=== PATIENT | male | born 1950 | race Caucasian/White ===

== ENCOUNTER → 2016-09-10 | Outpatient (CLI) | payer OTHER, MEDICARE ==
--- NOTE | 2016-09-11 19:38 | CPIP ---
[f rep st] INVASIVE CARDIAC PROCEDURE DATE OF PROCEDURE: 09/10/2016 Patient seen for arterial studies without exercise. He demonstrates an ankle-brachial index on the right of 0.6 and on the left 0.86. He has pulsatile flow in both legs down to the ankle level but b lood better on the left. On the right, he has diminished flow at the thigh level, suggesting a high SFA stenosis or even common femoral or iliac stenosis. It is relatively unchanged throughout the r est of the course with flat tracings at his digital and metatarsal levels on the right. IMPRESSION: A right sided vascular insufficiency at a higher level; possibly external iliac or comm on femoral. Would recommend CT angiography for further evaluation. /[id number]/MODL
== END ==
LOC: BHFA 13:00
PROVIDERS: ATTEND Surgery
DX: I70.209 Unspecified atherosclerosis of native arteries of extremities, unspecified extremity (principal)

== ENCOUNTER → 2016-11-21 | Outpatient (CLI) | payer OTHER, MEDICARE ==
[~2016-11-21] MED LIST: IOPAMIDOL (ISOVUE 370) 100 ML BTL IV ONE
[2016-11-21 11:58] LABS: CREATININE 0.8 mg/dL (0.7-1.3); GLOMERULAR FILTRATION RATE > 60
== END ==
LOC: FIMAGING 11:01
PROVIDERS: ATTEND Surgery
DX: I82.511 Chronic embolism and thrombosis of right femoral vein (principal); I82.512 Chronic embolism and thrombosis of left femoral vein; I77.1 Stricture of artery; I70.0 Atherosclerosis of aorta; Z95.828 Presence of other vascular implants and grafts
CPT/HCPCS: 75635; Q9967

== ENCOUNTER → 2016-12-31 | Outpatient (CLI) | payer OTHER, MEDICARE | LOC: BHFA 14:15 | PROVIDERS: ATTEND Internal Medicine Cardiovascular Disease | DX: Z01.810 Encounter for preprocedural cardiovascular examination (principal); I71.4 Abdominal aortic aneurysm, without rupture; I73.9 Peripheral vascular disease, unspecified; I25.10 Atherosclerotic heart disease of native coronary artery without angina pectoris; I10 Essential (primary) hypertension ==

== ENCOUNTER 2017-01-01 08:00 | Inpatient (IN) | payer OTHER, MEDICARE ==
--- NOTE | 2016-12-31 09:48 | GHP ---
[f rep st] PREOP HISTORY AND PHYSICAL DATE OF ADMISSION: 01/01/2017 Mr. Esteban is a 66-year-old male with a history of peripheral vascular disease. He had an aortobi femoral bypass approximately 10 years ago. He now presents complaining of progressively worsening, right worse than left claudication. Arterial studies revealed an WANDY of 0.6 on the right and 0.86 o n the left in September of 2016. CT angiogram with runoff in November of 2016 shows his aortobifemoral bypa ss graft with continued patency of the [place] infrarenal abdominal aortic aneurysm. He has chronica lly occluded iliac arteries. His bypass grafts to the common femoral arteries are patent; however, he does have an occluded long segment of his right SFA, with reconstitution to the mid to distal SFA and popliteal artery, with 2-vessel runoff to the ankle. On the left side, he has a short segment occlusion; with high-grade 80 to 90% segmental stenosis, high-grade focal popliteal artery stenosis, also with 2 vessel runoff to the ankle. He now presents for a right femoral-popliteal bypass surge ry. He may eventually need revascularization on the left side as well. The patient has been seen a nd examined by Dr. Amador, and all studies and images were personally reviewed by myself and Dr. Luis Angel sanchez. Risks and options have been fully discussed; including, but not limited to: Bleeding, infection , clotting, ischemia, need for further surgeries, limb loss, damage to surrounding structures, nerve injury, and other problems, and he requests to proceed. PAST MEDICAL HISTORY: Includes coronary artery disease with coronary stents, bronchitis, history of diverticulitis, L4-L5 disk bulging, sciatica, degenerative spondylolisthesis, metabolic syndrome, n europathy, prostate cancer, hypertension, hepatitis C. PAST SURGICAL HISTORY: Includes aortobifemoral bypass as described above. MEDICATIONS: Aspirin, Cialis, gabapentin, Lipitor, metformin, metoprolol, Niaspan, ramipril. ALLERGIES: No known drug allergies. 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 He is single and lives alone. He is a former tobac co smoker, and lost 25 pounds when he stopped drinking alcohol and smoking, and started eating more healthy. FAMILY HISTORY: Includes coronary artery disease. REVIEW OF SYSTEMS: Shortness of breath and leg pain. A 10-point review of systems negative aside f rom aforementioned, and that in the HPI. PHYSICAL EXAMINATION: GENERAL: Reveals a 66-year-old male, somewhat older-appearing than his state d age, alert and oriented x3, and in no acute distress. HEENT: Normocephalic atraumatic. Mucous m embranes moist. CHEST: Clear to auscultation bilaterally without wheezes. CARDIAC: Regular rate and rhythm without murmurs. ABDOMEN: Soft, nontender. No pulsatile masses. EXTREMITIES: Warm, d ry. Poor Doppler pulses. IMPRESSION: This is a 66-year-old male with a history of aortobifemoral bypass, which appears paten t, but now with claudication secondary to occlusion of his superficial femoral arteries, right worse than left. PLAN: Plan is to proceed with a right femoral-popliteal bypass graft. Again, risks and options hav e been fully discussed and he requests to proceed. We will also be obtaining cardiac clearance sylwia howard to his surgery. /[id number]/MODL
[2017-01-22] MEDS ORDERED: ceFAZolin 2 GM/DEXTROSE 100 ML IV ONE (06:17)
[2017-01-22] MEDS ORDERED: LIDOCAINE 1% 2 ML INJ ONE (06:35)
[2017-01-22] MEDS ORDERED: PROPOFOL 200 MG/20 ML VIAL ONE (06:52)
[2017-01-22] MEDS ORDERED: fentaNYL 100 MCG/2 ML INJ ONE ×2 (06:52→11:20)
[2017-01-22] MEDS ORDERED: LIDOCAINE 2% 5 ML SDV ONE (06:53)
[2017-01-22] MEDS ORDERED: ROCURONIUM 50 MG/5 ML VIAL ONE ×2 (06:53→08:45)
--- NOTE | 2017-01-22 06:56 | PDHPUP ---
History & Physical Update H&P update statement: This history and physical update is based on an assessment of the patient which was completed after admission or registration (within 24 hours), but prior to the surgery/procedure. Since last H&P patient's surgery was cancelled secondary to cardiac concerns. He is now s/p cardiac catheterization. No stents were placed. Plan per cardiology is for aggressive medical management. He has been cleared for surgery today. H&P update: H&P reviewed & patient examined
[2017-01-22] MEDS ORDERED: PROTAMINE SULFATE 50 MG/5 ML VIAL IVP ONE (06:58)
[2017-01-22] MEDS ORDERED: BUPIVACAINE 0.5% 30 ML SDV ONE (06:58)
[2017-01-22] MEDS ORDERED: THROMBIN (BOVINE) 20,000 UNIT SPRAY TP ONE (06:59)
[2017-01-22] MEDS ORDERED: HEPARIN 1000 UNIT/1 ML MDV ONE (07:00)
[2017-01-22] MEDS ORDERED: PAPAVERINE HCL 60 MG/2 ML SDV ONE (07:00)
[2017-01-22] MEDS ORDERED: IOTHALAMATE MEG (CONRAY) 50 ML VIAL IV ONE (07:00)
--- NOTE | 2017-01-22 07:25 | PDANEPAE ---
ANE History of Present Illness 66 year old male w/ PMHx CAD (with cardiac stents), PAD (prior aorta to bi- femoral bypass), HTN, HLD, chronic bronchitis (long-term smoker; quit 5 to 7 years ago), prostate cancer and DELBERT risk factors presents for right femoral to popliteal bypass. ANE Past Medical History - Cardiovascular History Hx Hypertension: Yes Hx Arrhythmias: No Hx Chest Pain: No Hx Coronary Artery / Peripheral Vascular Disease: Yes Hx CHF / Valvular Disease: No Hx Palpitations: No Cardiovascular History Comment: HYPERLIPIDEMIA. CARDIAC STENTS - Pulmonary History Hx COPD: No Hx Asthma/Reactive Airway Disease: No Hx Recent Upper Respiratory Infection: No Hx Oxygen in Use at Home: No Hx Sleep Apnea: No Sleep Apnea Screening Result - Last Documented: Negative Pulmonary History Comment: CHRONIC BRONCHITIS - Neurologic History Hx Cerebrovascular Accident: No Hx Seizures: No Hx Dementia: No - Endocrine History Hx Diabetes: Yes Hypothyroid: No Hyperthyroid: No Obesity: mild Endocrine History Comment: ELEVATED GLUCOSE - METFORMIN - Renal History Hx Renal Disorders: No - Liver History Hx Hepatic Disorders: No - Neurological & Psychiatric Hx Hx Neurological and Psychiatric Disorders: No - Cancer History Hx Cancer: No Cancer History Comment: PROSTATE CA - Congenital Disorder History Hx Congenital Disorders: No - GI History GERD: no Hx Gastrointestinal Disorders: No - Other Health History Other Health History: NEG - Chronic Pain History Chronic Pain: Yes (LEG RAMIN PAIN) - Surgical History Prior Surgeries: AORTA BYPASS 10 YRS AGO. ANGIOPLASTY W/STENTS. PROSTATE RADIOACTIVE IMPLANT. SKIN GRAFTS R LEG ANE Review of Systems - Exercise capacity Exercise capacity: <4 METS (Limited by claudication) METS (RN): 3 METS ANE Patient History - Allergies Allergies/Adverse Reactions: No Known Allergies Allergy (Verified 01/21/17 16:55) - Home Medications Home medications: home medication list seen and reviewed - NPO status NPO Status: no food or drink >8 hours NPO Since - Liquids (Date): 01/22/17 NPO Since - Liquids (Time): 05:00 NPO Since - Solids (Date): 01/21/17 NPO Since - Solids (Time): 23:30 - Anes Hx Anes Hx: no prior problems - Smoking Hx Smoking Status: Former smoker - Alcohol Use Alcohol Use: Rarely - Family Anes Hx Family Anes Hx: neg - N/A Family Hx Anesthesia Complications: NEG ANE Labs/Vital Signs - Vital Signs Vital Signs: reviewed preoperatively; see RN documention for details Blood Pressure: 128/65 Heart Rate: 59 Respiratory Rate: 16 O2 Sat (%): 95 Height: 177.8 cm Weight: 89.358 kg ANE Physical Exam - Airway Neck exam: FROM Mallampati Score: Class 2 - Pulmonary Pulmonary: no respiratory distress - Cardiovascular Cardiovascular: regular rate and rhythym - ASA Status ASA Status: III ANE Anesthesia Plan Anesthesia Plan: general endotracheal anesthesia Lines/Monitors: arterial line Total IV Anesthesia: No
[2017-01-22] MEDS ORDERED: MIDAZOLAM 2 MG/2 ML VIAL IVP ONE (07:26)
[2017-01-22] MEDS ORDERED: PHENYLEPHRINE HCL 100 MCG/ML SYR ONE (08:28)
[2017-01-22] MEDS ORDERED: HEPARIN 10,000 UNIT/10 ML MDV ONE (08:48)
[2017-01-22] MEDS ORDERED: ONDANSETRON 4 MG/2 ML VIAL IVP PRN ×2 (09:05→11:22)
[2017-01-22] MEDS ORDERED: HYDROmorphONE/DILAUDID 1 MG/ML SYR IVP PRN ×2 (09:05→11:22)
[2017-01-22] MEDS ORDERED: NALOXONE HCL 0.4 MG/ML INJ IVP PRN (09:05)
[2017-01-22] MEDS ORDERED: LR 500 ML IV PRN (09:05)
[2017-01-22] MEDS ORDERED: fentaNYL 100 MCG/2 ML INJ IVP PRN (09:05)
[2017-01-22] MEDS ORDERED: HYDROmorphONE/DILAUDID 2 MG/ML INJ ONE (09:27)
[2017-01-22] MEDS ORDERED: SUGAMMADEX SODIUM 200 MG/2 ML VIAL IVP ONE (10:51)
[2017-01-22] MEDS ORDERED: ONDANSETRON 4 MG/2 ML VIAL ONE (10:51)
--- NOTE | 2017-01-22 11:26 | POSTOPPROG ---
Post Op Note Date of Operation: 01/22/17 Surgeon: Dm Amador Pricing Specialist: Naz Marquis Anesthesiologist: Hemant Anderson Anesthesia: GET(General Endotracheal) Pre-op Diagnosis: PAD, severe claudication Post-op Diagnosis: same Procedure: Right fem (fem graft) pop bypass with impra graft Findings: soft popliteal artery with some plaque. good DP pulse post procedure Inf/Abcess present in the surg proc area at time of surgery?: No EBL: 200 Complications: none
[2017-01-22] MEDS ORDERED: NS W/ 20 KCl/L 1,000 ML IV SCH (11:30)
--- NOTE | 2017-01-22 16:43 | POSTANESTH ---
Post Anesthetic Evaluation Cardiovascular Status: Normal, Stable Respiratory Status: Normal, Stable Level of Consciousness/Mental Status: Can Participate in Eval Pain Control: Adequate, Prn Tx Ordered Nausea/Vomiting Control: Adequate, Prn Tx Ordered Complications Possibly Related to Anesthesia: None Noted
--- NOTE | 2017-01-22 17:28 | SOAPPROG ---
SOAP Progress Note Assessment/Plan: Assessmen POSTOP RIGHT FEM-POP BYPASS/GOOD PEDAL PULSES/WOUND OKAY Plan: AMBULATE IN THE A.M. 01/22/17 17:27 Objective: Vital Signs Temp Pulse Resp BP Pulse Ox 36.6 C 65 20 111/54 L 91 L 01/22/17 15:22 01/22/17 15:22 01/22/17 15:22 01/22/17 15:22 01/22/17 15:22 01/21/17 01/22/17 01/23/17 05:59 05:59 05:59 Intake Total 2100 Output Total 800 Balance 1300 ICD10 Worksheet Patient Problems: Problems Problem Status Onset CAD (coronary artery disease) Acute Preoperative cardiovascular examination Acute
[2017-01-22] MEDS ORDERED: NON-FORMULARY NEW DRUG (Metformin Hcl [Metformin Hcl Er] 1,000 MG) PO SCH (21:00)
[2017-01-22] MEDS: GABAPENTIN 300 MG CAP PO SCH (21:26)
[2017-01-22] MEDS: metFORMIN SR 500 MG TAB PO SCH (21:26)
[2017-01-22] MEDS: RAMIPRIL 5 MG CAP PO SCH (21:26)
[2017-01-22] MEDS: DOCUSATE SODIUM 100 MG CAP PO SCH (21:27)
[2017-01-22] MEDS: ATORVASTATIN CALCIUM 20 MG TAB PO SCH (21:27)
[2017-01-22] MEDS: ASPIRIN 81 MG CHEWABLE TAB PO SCH (21:27)
[2017-01-23 05:05] LABS: HEMATOCRIT 34.1 % (40.0-51.0); HEMOGLOBIN 11.1 g/dL (13.7-17.5)
[2017-01-23 05:17] LABS: ANION GAP 7 mEq/L (8-16); CALCIUM 8.5 mg/dL (8.5-10.4); CARBON DIOXIDE 24 mEq/l (22-31); CHLORIDE 106 mEq/L (97-110); CREATININE 0.8 mg/dL (0.7-1.3); GLOMERULAR FILTRATION RATE > 60; GLUCOSE 109 mg/dL (70-100); POTASSIUM 4.4 mEq/L (3.5-5.2); SODIUM 137 mEq/L (134-144)
[2017-01-23] MEDS: DOCUSATE SODIUM 100 MG CAP PO SCH ×2 (08:19→22:20)
[2017-01-23] MEDS: MULTIVITAMINS 1 EACH TAB PO SCH (08:19)
[2017-01-23] MEDS: GABAPENTIN 300 MG CAP PO SCH ×2 (08:19→22:20)
[2017-01-23] MEDS: OXYCODONE/APAP 5/325 TAB PO PRN ×4 (08:33→23:53)
[2017-01-23] MEDS ORDERED: ENOXAPARIN 40 MG/0.4 ML SYR SC SCH (09:00)
--- NOTE | 2017-01-23 09:53 | SOAPPROG ---
SOAP Progress Note Assessment/Plan: Assessmen POSTOP RIGHT FEM-POP BYPASS/GOOD PEDAL PULSES/WOUND OKAY Plan: AMBULATE IN THE A.M. 01/22/17 17:27 01/23/17 09:51 POSTOP RIGHT FEM-POP/ DOING WELL/ DRESSINGS CDI/ PULSES GREAT PLAN AMBULATE/ HOME TODAY OR MORE LIKELY IN AM AFTER PT EVAL Objective: Vital Signs Temp Pulse Resp BP Pulse Ox 36.8 C 62 13 107/49 L 94 01/23/17 08:03 01/23/17 08:03 01/23/17 08:03 01/23/17 08:03 01/23/17 08:03 Laboratory Results 01/23/17 04:35 01/23/17 04:35 01/22/17 01/23/17 01/24/17 05:59 05:59 05:59 Intake Total 4434 Output Total 3800 Balance 634 ICD10 Worksheet Patient Problems: Problems Problem Status Onset CAD (coronary artery disease) Acute Preoperative cardiovascular examination Acute
[2017-01-23] MEDS: METOPROLOL SUCCINATE XR 50 MG TAB PO SCH (16:13)
[2017-01-23] MEDS: RAMIPRIL 5 MG CAP PO SCH (22:18)
[2017-01-23] MEDS: ATORVASTATIN CALCIUM 20 MG TAB PO SCH (22:20)
[2017-01-23] MEDS: metFORMIN SR 500 MG TAB PO SCH (22:20)
[2017-01-23] MEDS: ASPIRIN 81 MG CHEWABLE TAB PO SCH (22:20)
[2017-01-24] MEDS ORDERED: ENOXAPARIN 40 MG/0.4 ML SYR SC SCH (09:00)
[2017-01-24] MEDS: OXYCODONE/APAP 5/325 TAB PO PRN ×2 (09:09→15:40)
[2017-01-24] MEDS: MULTIVITAMINS 1 EACH TAB PO SCH (09:11)
[2017-01-24] MEDS: GABAPENTIN 300 MG CAP PO SCH (09:11)
[2017-01-24] MEDS: DOCUSATE SODIUM 100 MG CAP PO SCH (09:12)
[2017-01-24] MEDS: METOPROLOL SUCCINATE XR 50 MG TAB PO SCH (09:12)
[2017-01-24 11:46] VITALS: BP 107/57; PULSE 68; RESP 18; TEMP 98.4; O2SAT 92
--- NOTE | 2017-01-24 13:58 | SOAPPROG ---
SOAP Progress Note Assessment/Plan: Assessment: 66yo male POD #2 s/p right fem-pop bypass Ambulate with PT today. Evaluate need for walker vs independent ambulation. Continue pain control. Dressing taken down today, may leave to air. Dispo: to home likely today. He has a friend who will come stay with him S: Feeling well today. States that ambulating yesterday was more difficult and painful than he anticipated it would be. He is requesting a walker to go home with. O: Lying in bed, NAD Afebrile RLE warm with good DP and PT pulses 2 right lower extremity incision C/D/I with krystle No increased WOB Objective: Vital Signs Temp Pulse Resp BP Pulse Ox 36.9 C 68 18 107/57 L 92 01/24/17 11:45 01/24/17 11:45 01/24/17 11:45 01/24/17 11:45 01/24/17 11:45 Laboratory Results 01/23/17 04:35 01/23/17 04:35 01/23/17 01/24/17 01/25/17 05:59 05:59 05:59 Intake Total 4434 620 360 Output Total 1577 1771 597 Balance 634 -1155 -265 ICD10 Worksheet Patient Problems: Problems Problem Status Onset CAD (coronary artery disease) Acute Preoperative cardiovascular examination Acute
--- NOTE | 2017-02-11 00:58 | GOP ---
[f rep st] OPERATIVE REPORT DATE OF OPERATION: 01/22/2017 SURGEON: Dm Amador MD CYBER SECURITY: MARINA Perez. ANESTHESIOLOGIST: Hemant Anderson MD. PREOPERATIVE DIAGNOSIS: Right limiting claudication and rest pain. POSTOPERATIVE DIAGNOSIS: Right limiting claudication and rest pain. PROCEDURE PERFORMED: Right common femoral artery endarterectomy with a right profundoplasty and right femoral-popliteal bypass. FINDINGS: Patient was found to have a severely calcified and occluded right common femoral artery involving the origin of the profunda femoris. He had a good palpable pulse postoperatively and a soft popliteal artery distally to plug into. The superficial femoral artery was completely occluded. ESTIMATED BLOOD LOSS: Less than 200 cc. DESCRIPTION OF PROCEDURE: Patient was taken to the operating room where he received satisfactory general endotracheal anesthesia by Dr. Anderson. He was placed in supine position, prepped and draped in usual sterile fashion. A vertical incision was made in the right groin. Dissection was carried down through subcutaneous tissue. Common femoral, profunda femoris, and superficial femoral arteries were all dissected free and controlled with vessel loops along with some small side branches. Adequate exposure was achieved. This required partial division of the inguinal ligament to get higher control. A second incision was made in the medial side of the right side. Dissection was extended down between the muscles into the Kulwinder canal, which was opened, and the popliteal space was entered. The popliteal artery was dissected free and controlled with vessel loops. It was dissected down behind the knee where the vessel was soft enough for bypass. An 8-5 Impra graft was used. Distal anastomosis was made to the popliteal artery in an end-to-side manner using a running Hemashield 7 suture. The suture line appeared to be hemostatic. There was some small amount of backflow from the unga vessel. The graft was then tunneled subsartorially up into the groin incision. At that point, a vertical incision was made in the common femoral artery. This was extended down over the origin of the profunda femoris. Endarterectomy was then done of the common femoral artery, including the origin of the profunda. The superficial femoral artery was completely occluded. All vessels were flushed. The distal endarterectomy site was stable. The graft was brought up and a schneider was created to lay on as a profundoplasty as well as covering the common femoral artery opening. This was sutured in place with a running Hemashield 6 suture. All vessels were flushed prior to completion of the suture line. Flow was first established through the unga superficial femoral artery, then through the profunda femoris, and eventually through the graft. The suture line appeared to be hemostatic. There was good pulsatile flow in the foot following opening of the graft. Heparin was reversed with protamine. Hemostasis was thoroughly obtained. The wound was closed in layers using 2-0 Vicryl for the fascia, 3-0 Vicryl for the subcu, and skin krystle for the skin. Both incisions were handled in a similar manner. Both incisions were infiltrated with 0.5% Marcaine, and both incisions had been sprayed with some topical thrombin prior to closure. He tolerated the procedure well and was taken to the recovery room in good condition. There were no complications. /[id number]/MODL MTDD
== END 2017-01-24 16:27 | disposition home or self-care (01) | DRG 254 ==
LOC: F3N 11:35 → UNDOADMIN 11:35 → F3N 01-22 05:47 → F2W 01-22 12:20
PROVIDERS: ADMIT Surgery; ATTEND Surgery
PROC: 041K4JL Bypass Right Femoral Artery to Popliteal Artery with Synthetic Substitute, Percutaneous Endoscopic Approach (ICD-10-PCS; principal; 2017-01-22 08:00)
PROC: 04CK0ZZ Extirpation of Matter from Right Femoral Artery, Open Approach (ICD-10-PCS; principal; 2017-01-22 08:00)
DX: I73.9 Peripheral vascular disease, unspecified (principal); I25.10 Atherosclerotic heart disease of native coronary artery without angina pectoris; E78.5 Hyperlipidemia, unspecified; I10 Essential (primary) hypertension; Z95.5 Presence of coronary angioplasty implant and graft; Z85.46 Personal history of malignant neoplasm of prostate
CPT/HCPCS: 97161-GP; C1757; C1768; G8978-GP-CI; G8979-GP-CI; G8980-GP-CI; J0690; J1170; J1644; J1650; J2250; J2370; J2405; J2440; J2704; J2720; J3010; Q9961

== ENCOUNTER → 2017-01-01 | Outpatient (CLI) | payer OTHER, MEDICARE ==
[~2017-01-01] MED LIST changes: -IOPAMIDOL (ISOVUE 370) 100 ML BTL IV ONE; +REGADENOSON 0.4 MG/5 ML SYR IVP ONE
--- NOTE | 2017-01-01 23:54 | CPR ---
[f rep st] NONINVASIVE CARDIAC PROCEDURE REPORT DATE OF PROCEDURE: 01/01/2017 PROCEDURE: Lexiscan nuclear stress test. REASON FOR TEST: Surgical clearance. ORDERING PHYSICIAN: Dr. Henry Guzman. Resting EKG shows a regular sinus rhythm with late R-wave progression and occasional PVC. Resting h eart rate 69, resting blood pressure 128/64, oxygen saturation 95%. LEXISCAN PORTION: Lexiscan was given rapidly followed by saline flush per protocol. Cardiolite was then given, followed by saline flush. He felt mild warmth with slight chest discomfort after the in fusion. This spontaneously subsided. His peak blood pressure was 150/60, peak heart rate 87, oxyge n saturation 95%. RECOVERY: He spontaneously recovered. Blood pressure 134/60, heart rate 87, oxygen saturation 98%. He was pain free at conclusion of test . At this time he is stable for nuclear imaging. /[id number]/MODL
== END ==
LOC: FIMAGING 12:26
PROVIDERS: ATTEND Internal Medicine Cardiovascular Disease
DX: Z01.810 Encounter for preprocedural cardiovascular examination (principal); I73.9 Peripheral vascular disease, unspecified; I25.10 Atherosclerotic heart disease of native coronary artery without angina pectoris; I71.4 Abdominal aortic aneurysm, without rupture
CPT/HCPCS: 78452; 93017; A9500; J2785

== ENCOUNTER → 2017-01-01 | Outpatient (CLI) | payer OTHER, MEDICARE | LOC: BHLMT 09:15 | PROVIDERS: ATTEND Internal Medicine Cardiovascular Disease | DX: Z01.810 Encounter for preprocedural cardiovascular examination (principal); I25.10 Atherosclerotic heart disease of native coronary artery without angina pectoris | CPT/HCPCS: 93306-PO ==

== ENCOUNTER → 2017-01-07 | Day surgery (SDC) | payer OTHER, MEDICARE ==
[~2017-01-07] MED LIST changes: +ASPIRIN EC 325 MG TAB PO ONE; +ATROPINE SULFATE 1 MG/10 ML SYR IVP PRN; +DIAZEPAM 5 MG TAB ONE; +DIAZEPAM 5 MG TAB PO ONE; +FAMOTIDINE 20 MG TAB ONE; +FAMOTIDINE 20 MG TAB PO ONE; +HEPARIN 10,000 UNIT/10 ML MDV ONE; +IOPAMIDOL (ISOVUE-370) 150 ML BTL IV ONE; +LIDOCAINE 1% 300 MG/30 ML SDV ONE; +MIDAZOLAM 2 MG/2 ML VIAL ONE; +NITROGLYCERIN 0.4 MG BTL SL PRN; +NS 1,000 ML IV ONE; -REGADENOSON 0.4 MG/5 ML SYR IVP ONE; +VERAPAMIL 5 MG/2 ML VIAL ONE; +diphenhydrAMINE 25 MG CAP PO ONE; +fentaNYL 100 MCG/2 ML INJ ONE
--- NOTE | 2017-01-07 11:47 | CPEKG ---
Heart Rate: 59 RR Interval: 1017 P-R Interval: 204 QRSD Interval: 86 QT Interval: 436 QTC Interval: 432 P Austin: 66 QRS Austin: -32 T Wave Austin: 31 EKG Severity - BORDERLINE ECG - EKG Impression: SINUS RHYTHM EKG Impression: LEFT AXIS DEVIATION EKG Impression: BORDERLINE R WAVE PROGRESSION, ANTERIOR LEADS Electronically Signed By: Alex Fragoso 07-Jan-2017 21:06:10
[2017-01-07 12:04] LABS: % IMMATURE GRANULYOCYTES 0.6 % (0.0-1.1); ABSOLUTE IMMATURE GRANULOCYTES 0.04 10^3/uL (0.00-0.10); ADD DIFF? NO; ADD MORPH? NO; ADD SCAN? NO; ATYPICAL LYMPHOCYTE FLAG 20 (0-99); FRAGMENT RBC FLAG 0 (0-99); HEMATOCRIT 40.6 % (40.0-51.0); HEMOGLOBIN 13.5 g/dL (13.7-17.5); LEFT SHIFT FLG 0 (0-99); LIPEMIA HEMOLYSIS FLAG 80 (0-99); MEAN CELL HEMOGLOBIN 29.1 pg (27.9-34.1); MEAN CELL HEMOGLOBIN CONCENTR. 33.3 g/dL (32.4-36.7); MEAN CELL VOLUME 87.5 fL (81.5-99.8); MEAN PLATELET VOLUME 9.8 fL (8.7-11.7); PLATELET CLUMPS FLAG 10 (0-99); PLATELET COUNT 243 10^3/uL (150-400); RED BLOOD CELL COUNT 4.64 10^6/uL (4.40-6.38); RED CELL DISTRIBUTION WIDTH 14.4 % (11.5-15.2)
[2017-01-07 12:14] LABS: PROTIME(PATIENT) 13.1 SEC (12.0-15.0)
[2017-01-07 12:25] LABS: ANION GAP 11 mEq/L (8-16); CALCIUM 9.5 mg/dL (8.5-10.4); CARBON DIOXIDE 24 mEq/l (22-31); CHLORIDE 104 mEq/L (97-110); CHOLESTEROL 147 mg/dL (140-220); CHOLESTEROL/HDL RATIO 4.32 RATIO (1.00-4.97); CREATININE 0.8 mg/dL (0.7-1.3); GLOMERULAR FILTRATION RATE > 60; GLUCOSE 100 mg/dL (70-100); HIGH DENSITY LIPOPROTEIN 34 mg/dL (40-65); LDL/HDL RATIO 2.71 RATIO (1.00-3.64); LOW DENSITY LIPOPROTEIN 92 mg/dL (80-100); MAGNESIUM 1.9 mg/dL (1.6-2.3); NON-HIGH DENSITY LIPOPROTEIN 113 mg/dL (90-129); POTASSIUM 4.5 mEq/L (3.5-5.2); SODIUM 139 mEq/L (134-144); TRIGLYCERIDE 107 mg/dL (40-150); VERY LOW DENSITY LIPOPROTEINS 21 mg/dL (8-25)
--- NOTE | 2017-01-07 13:50 | PDDXCAT ---
Diagnostic Cath Note - . Date: 01/07/17 Track Rider: Vazquez High-risk criteria on non-invasive testing: high-risk treadmill score (score<=- 11) - Procedure Access: right wrist Procedure: left heart catheterization, coronary angiography, left ventriculogram - Materials Left Heart Cath size: 5F Left Heart Cath materials: pigtail, other (SiteSeer 4) - Findings-Left Heart Catheterization LM: Calcified: Unobstructed LAD: Calcified: Tortuous, a non obstructed. 1st diagonal 50% stenosis LCX: Large vessel tortuous luminal irregularities of up to 30% RCA: 100% occluded proximally: Collaterals from left. EDP: 10 mm of mercury LVEF: 65 Wall motion: Normal Complications: None Estimated blood loss: <50ml Closure method: TR Band Assessment: 1. Stable cardiovascular disease with occlusion of the right coronary artery fed by collaterals. 2. Nonobstructive moderate atherosclerosis of the left main LAD and circumflex. 3. Normal LV systolic function. No contraindications to upcoming vascular surgery identified by this study. Continue aggressive medical therapy. Plan: Aggressive secondary prevention with medical management. Patient Problems: Problems Problem Status Onset Preoperative cardiovascular examination Acute CAD (coronary artery disease) Acute
== END | disposition home or self-care (01) ==
LOC: FCATH 11:13
PROVIDERS: ATTEND Internal Medicine Interventional Cardiology
PROC: 4A023N7 Measurement of Cardiac Sampling and Pressure, Left Heart, Percutaneous Approach (ICD-10-PCS; principal; 2017-01-07)
PROC: B2151ZZ Fluoroscopy of Left Heart using Low Osmolar Contrast (ICD-10-PCS; principal; 2017-01-07)
PROC: B2111ZZ Fluoroscopy of Multiple Coronary Arteries using Low Osmolar Contrast (ICD-10-PCS; principal; 2017-01-07)
DX: I25.10 Atherosclerotic heart disease of native coronary artery without angina pectoris (principal); E78.5 Hyperlipidemia, unspecified; I10 Essential (primary) hypertension; I73.9 Peripheral vascular disease, unspecified; Z95.5 Presence of coronary angioplasty implant and graft; Z85.46 Personal history of malignant neoplasm of prostate
CPT/HCPCS: 93005; 93458; C1769; J1644; J2250; J3010; Q9967

== ENCOUNTER 2017-02-05 07:30 | Inpatient (IN) | payer OTHER, MEDICARE ==
--- NOTE | 2017-02-04 21:25 | GHP ---
[f rep st] PREOP HISTORY AND PHYSICAL DATE OF ADMISSION: 02/05/2017 HISTORY OF PRESENT ILLNESS: The patient is a 66-year-old male with a history of peripheral vascular disease, who is recently status post right femoral-popliteal bypass graft. He also complains of le ft leg claudication and is found to have disease on that side as well. He has a history of an aorto bifem bypass approximately [address] angiogram in November 2016 showed patency of his aortobifem graft with chronically occluded iliac arteries. His right SFA was occluded but has since been oper ated on. On the left side, he has a short-segment of occlusion with high-grade 80%-90% segmental st enosis and some high-grade focal popliteal artery stenosis with 2 vessel runoff to the ankle. Risks and options have been discussed including, but not limited to, bleeding, infection, clotting, ische ledy, need for further surgery, limb loss, damage to surrounding structures, nerve injury, and other problems, and he requests to proceed. PAST MEDICAL HISTORY: Includes coronary artery disease, coronary stents, status post recent cardiac catheterization prior to his recent right lower extremity revascularization surgery, also bronchiti s, history of diverticulitis, L4-L5 disc bulging, sciatica, degenerative spondylolisthesis, metaboli c syndrome, neuropathy, prostate cancer, hypertension, hepatitis C. PAST SURGICAL HISTORY: Includes aortobifemoral bypass and right femoral-popliteal bypass as describ ed above. MEDICATIONS: Include aspirin, Cialis, gabapentin, Lipitor, metformin, metoprolol, Niaspan, and rami pril. ALLERGIES: No known drug allergies. 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 He is a former tobacco s moker and lost 25 pounds when he stopped drinking alcohol and smoking and started eating more health y. FAMILY MEDICAL HISTORY: Includes coronary artery disease. REVIEW OF SYSTEMS: Includes shortness of breath and leg pain. Otherwise a 10-point review of syste ms is negative aside from that in the HPI. PHYSICAL EXAMINATION: GENERAL: Reveals a 66-year-old male, alert and oriented x3 and in no acute d istress. HEENT: Normocephalic, atraumatic. CHEST: Clear to auscultation bilaterally without whee zes. CARDIAC: Regular rate and rhythm without murmurs. ABDOMEN: Soft, nontender. No pulsatile m asses. EXTREMITIES: Warm and dry with palpable right pedal pulses and poor Doppler pulses on the l eft. IMPRESSION: This is a 66-year-old male with peripheral arterial disease, history of aortobifem bypa ss with recent right femoral-popliteal bypass, now with left leg arterial disease and claudication s ymptoms. PLAN: Plan is to proceed with a left femoral-popliteal bypass. Again risks and options have been d iscussed and he requests to proceed. /[id number]/MODL
--- NOTE | 2017-02-05 08:11 | PDHPUP ---
History & Physical Update H&P update statement: This history and physical update is based on an assessment of the patient which was completed after admission or registration (within 24 hours), but prior to the surgery/procedure. H&P update: H&P reviewed & patient examined, no change in patient's condition since H&P completed
[2017-02-05] MEDS ORDERED: ceFAZolin 2 GM/DEXTROSE 100 ML IV ONE (08:18)
[2017-02-05] MEDS ORDERED: LR 1,000 ML IV ONE (08:20)
--- NOTE | 2017-02-05 09:11 | PDANEPAE ---
ANE History of Present Illness 66 year old male w/ PMHx of CAD (w/stents), PAD, COPD/Chronic Bronchitis & Prostate Cancer presents for fem-pop bypass. ANE Past Medical History - Cardiovascular History Hx Hypertension: Yes Hx Arrhythmias: No Hx Chest Pain: No Hx Coronary Artery / Peripheral Vascular Disease: Yes Hx CHF / Valvular Disease: No Hx Palpitations: No Cardiovascular History Comment: HYPERLIPIDEMIA. CARDIAC STENTS - Pulmonary History Hx COPD: No Hx Asthma/Reactive Airway Disease: No Hx Recent Upper Respiratory Infection: No Hx Oxygen in Use at Home: No Hx Sleep Apnea: No Sleep Apnea Screening Result - Last Documented: Positive Pulmonary History Comment: CHRONIC BRONCHITIS - Neurologic History Hx Cerebrovascular Accident: No Hx Seizures: No Hx Dementia: No - Endocrine History Hx Diabetes: Yes Hypothyroid: No Hyperthyroid: No Obesity: mild Endocrine History Comment: ELEVATED GLUCOSE - METFORMIN - Renal History Hx Renal Disorders: No - Liver History Hx Hepatic Disorders: No - Neurological & Psychiatric Hx Hx Neurological and Psychiatric Disorders: No - Cancer History Hx Cancer: No Cancer History Comment: PROSTATE CA - Congenital Disorder History Hx Congenital Disorders: No - GI History GERD: no Hx Gastrointestinal Disorders: No - Other Health History Other Health History: R leg is "larger than L leg-Dr Amador aware 01/30/17." Some redness noted also. - Chronic Pain History Chronic Pain: Yes (LEG RAMIN PAIN) - Surgical History Prior Surgeries: R femoral popliteal bypass 01-22-17;. AORTA BYPASS 10 YRS AGO. ANGIOPLASTY W/STENTS. PROSTATE RADIOACTIVE IMPLANT. SKIN GRAFTS R LEG ANE Review of Systems - Exercise capacity Exercise capacity: <4 METS METS (RN): 3 METS ANE Patient History - Allergies Allergies/Adverse Reactions: No Known Allergies Allergy (Verified 01/31/17 16:49) - Home Medications Home medications: home medication list seen and reviewed Home Medications: Aspirin [Aspirin 81mg (*)] 81 mg PO HS 01/22/17 [Last Taken 02/04/17] Atorvastatin Calcium [Lipitor 20 mg (*)] 20 mg PO HS 01/22/17 [Last Taken ] Gabapentin [Neurontin 300 MG (*)] 300 mg PO BID 01/22/17 [Last Taken 02/04/17] Metoprolol Succinate Xr [Toprol Xl 50 mg (*)] 50 mg PO DAILY 01/22/17 [Last Taken 02/04/17] [place]-3 Fatty Acids [Fish Oil 1000 mg (*)] 1,000 mg PO DAILY 01/22/17 [Last Taken 02/04/17] Ramipril [Altace 5mg (*)] 5 mg PO HS 01/22/17 [Last Taken 02/04/17] metFORMIN HCL [Metformin HCl ER] 1,000 mg PO HS 01/22/17 [Last Taken 02/04/17] - NPO status NPO Status: no food or drink >8 hours NPO Since - Liquids (Date): 02/04/17 NPO Since - Liquids (Time): 00:00 NPO Since - Solids (Date): 02/04/17 NPO Since - Solids (Time): 00:00 - Anes Hx Anes Hx: no prior problems - Smoking Hx Smoking Status: Former smoker - Alcohol Use Alcohol Use: Occasionally - Family Anes Hx Family Anes Hx: neg - N/A Family Hx Anesthesia Complications: NEG ANE Labs/Vital Signs - Vital Signs Vital Signs: reviewed preoperatively; see RN documention for details Blood Pressure: 116/66 Heart Rate: 65 Respiratory Rate: 18 O2 Sat (%): 96 Height: 177.8 cm Weight: 90.718 kg ANE Physical Exam - Airway Mallampati Score: Class 1 Mouth exam: poor dentition - Pulmonary Pulmonary: bronchial breath sounds - Cardiovascular Cardiovascular: regular rate and rhythym - ASA Status ASA Status: III ANE Anesthesia Plan Anesthesia Plan: general endotracheal anesthesia Lines/Monitors: arterial line Total IV Anesthesia: No
[2017-02-05] MEDS ORDERED: PROPOFOL 200 MG/20 ML VIAL ONE (09:44)
[2017-02-05] MEDS ORDERED: fentaNYL 100 MCG/2 ML INJ ONE ×2 (09:44→14:01)
[2017-02-05] MEDS ORDERED: ROCURONIUM 50 MG/5 ML VIAL ONE ×2 (09:46→10:43)
[2017-02-05] MEDS ORDERED: LIDOCAINE 2% 5 ML SDV ONE (09:46)
[2017-02-05] MEDS ORDERED: BUPIVACAINE 0.5% 30 ML SDV ONE (09:56)
[2017-02-05] MEDS ORDERED: PROTAMINE SULFATE 50 MG/5 ML VIAL IVP ONE (09:57)
[2017-02-05] MEDS ORDERED: THROMBIN (BOVINE) 20,000 UNIT SPRAY TP ONE (09:58)
[2017-02-05] MEDS ORDERED: PAPAVERINE HCL 60 MG/2 ML SDV ONE (09:59)
[2017-02-05] MEDS ORDERED: IOTHALAMATE MEG (CONRAY) 50 ML VIAL IV ONE (10:01)
[2017-02-05] MEDS ORDERED: HYDROmorphONE/DILAUDID 1 MG/ML SYR IVP PRN ×2 (10:30→13:49)
[2017-02-05] MEDS ORDERED: ALBUTEROL 3 ML DEYVIAL IH PRN (10:30)
[2017-02-05] MEDS ORDERED: LR 500 ML IV PRN (10:30)
[2017-02-05] MEDS ORDERED: NALOXONE HCL 0.4 MG/ML INJ IVP PRN (10:30)
[2017-02-05] MEDS ORDERED: OXYCODONE/APAP 5/325 TAB PO PRN (10:30)
[2017-02-05] MEDS ORDERED: ONDANSETRON 4 MG/2 ML VIAL IVP PRN ×2 (10:30→13:49)
[2017-02-05] MEDS ORDERED: PHENYLEPHRINE HCL 100 MCG/ML SYR ONE (10:31)
[2017-02-05] MEDS ORDERED: epHEDrine SULFATE 10 MG/ML SYR ONE (10:31)
[2017-02-05] MEDS ORDERED: SUGAMMADEX SODIUM 200 MG/2 ML VIAL IVP ONE (10:32)
[2017-02-05] MEDS ORDERED: ONDANSETRON 4 MG/2 ML VIAL ONE (10:32)
[2017-02-05] MEDS ORDERED: DEXAMETHASONE 4 MG/ML VIAL ONE (10:32)
[2017-02-05] MEDS ORDERED: HEPARIN 10,000 UNIT/10 ML MDV ONE (10:44)
[2017-02-05] MEDS ORDERED: HYDROmorphONE/DILAUDID 2 MG/ML INJ ONE (10:57)
--- NOTE | 2017-02-05 13:48 | POSTOPPROG ---
Post Op Note Date of Operation: 02/05/17 Surgeon: Dm Amador Hat Forming Machine Operator: Naz Marquis Anesthesiologist: Hemant Anderson Anesthesia: GET(General Endotracheal) Pre-op Diagnosis: PAD, SFA occlusion, SFA and popliteal stenosis, hx aortobifem bypass Post-op Diagnosis: same Procedure: R fempop bypass c graft to graft anastomosis, profundoplasty, endarterectom Findings: calcified artery and occluded distal oldgraft, +pedal pulses post procedure Inf/Abcess present in the surg proc area at time of surgery?: No EBL: 50-100 Complications: none
--- NOTE | 2017-02-05 13:55 | POSTANESTH ---
Post Anesthetic Evaluation Cardiovascular Status: Normal, Stable, Similar to Pre-Op Cond Respiratory Status: Normal, Stable, Similar to Pre-op Cond. Level of Consciousness/Mental Status: Can Participate in Eval, Alert and Oriented Pain Control: Adequate, Prn Tx Ordered Nausea/Vomiting Control: Adequate, Prn Tx Ordered Complications Possibly Related to Anesthesia: None Noted
[2017-02-05] MEDS ORDERED: NS W/ 20 KCl/L 1,000 ML IV SCH (14:00)
[2017-02-05] MEDS: fentaNYL 100 MCG/2 ML INJ IVP PRN ×2 (14:03→14:12)
--- NOTE | 2017-02-05 14:57 | GOP ---
[f rep st] OPERATIVE REPORT DATE OF OPERATION: SURGEON: Dm Amador MD FRONT DESK ATTENDANT: MIMA Meza ANESTHESIOLOGIST: Hemant Anderson MD PREOPERATIVE DIAGNOSIS: Left leg ischemia with common femoral, superficial femoral, and popliteal artery stenoses. POSTOPERATIVE DIAGNOSIS: Left leg ischemia with common femoral, superficial femoral, and popliteal artery stenoses. PROCEDURE PERFORMED: Left common femoral and profunda endarterectomy with profundoplasty and femoral popliteal bypass. FINDINGS: The patient was found to have a soft proximal popliteal artery. He had a large plaque in the middle, and then a soft more distal popliteal artery behind the knee. He had a large amount of thrombus and junk obstructing the outflow of the profunda femoris in the groin with good inflow from the previous aortofemoral graft. He has a calcific stenosis and near occlusion of the profunda orifice, as well. ESTIMATED BLOOD LOSS: Less than 150 cc. There were no complications. He was taken to the recovery room in good condition. DESCRIPTION OF PROCEDURE: Patient was taken to the operating room where he received a satisfactory general endotracheal anesthesia by Dr. Anderson. He was placed in supine position and prepped and draped in the usual sterile fashion. Incision was made in the groin through a previous old scar and extended up above the inguinal ligament. Dissection extended down through the subcutaneous tissue, and the aortofemoral bypass limb, the superficial femoral artery, and profunda femoris arteries were dissected free and controlled with vessel loops. Some bleeding from a posterior branch was ligated with a 4-0 Prolene suture ligature. After adequate exposure there, incision was made on the medial aspect of the upper leg with dissection extended down through subcutaneous tissue into Kulwinder canal, which was opened and then into the popliteal space. The popliteal artery was dissected free and, as described above, was quite soft initially; but then there was a plaque in the midportion. Dissection extended down behind the knee with adequate exposure. The soft part of the artery could be identified, and this was encircled with vessel loops. After adequate exposure, the patient was systemically heparinized. After adequate circulation time, the vessels were occluded. An arteriotomy was made in the distal popliteal artery. Good backflow was present. End-to-side anastomosis was made with an Impra graduated 8 to 5 graft. The suture line was completed with a Hemashield 7 suture. Flow was present in the graft, and the suture line appeared to be hemostatic. The graft was then tunneled in a subsartorial tunnel up to the groin. At that point, the vessels were cross clamped. Arteriotomy was made in the limb of the aortofemoral bypass graft, and this was extended down through the origin of the profunda femoris. A large amount of thrombus was dissected free, doing an endarterectomy of the common femoral artery. This extended into the origin of the profunda, where the calcified plaque was freed up and endarterectomy was completed. The origin of the SFA was also occluded, but nothing was done about that. Good inflow was established. All vessels were flushed, and the proximal anastomosis was then made with a long running suture line with on-lay graft to the common femoral artery and extending down as a profundoplasty for approximately 1 inch along the profunda femoris artery. This was done with a running Hemashield 6 suture. All vessels were flushed prior to completion of the anastomosis. Flow was first established to the moapa SFA, then through the profunda femoris, and then through the graft. He had a good bounding dorsalis pedis pulse postoperatively. Suture line appeared to be hemostatic. Heparin was reversed with protamine. Wounds were sprayed with some topical thrombin. Hemostasis was achieved. Wounds were irrigated and closed in layers using 2-0 Vicryl for the fascia, 3-0 Vicryl subcu, and skin krystle for the skin. All wounds were infiltrated with 0.5% Marcaine. /[id number]/MODL MTDD
[2017-02-05] MEDS: OXYCODONE/APAP 5/325 TAB PO PRN (17:22)
--- NOTE | 2017-02-05 18:57 | SOAPPROG ---
SOAP Progress Note Assessment/Plan: Assessment: POSTOP OK/ PULSES GOOD/ AFEBRILE Plan:AMBULATE IN AM 02/05/17 18:57 Objective: Vital Signs Temp Pulse Resp BP Pulse Ox 36.3 C 68 14 106/53 L 99 02/05/17 15:23 02/05/17 18:00 02/05/17 15:23 02/05/17 18:00 02/05/17 15:23 02/04/17 02/05/17 02/06/17 05:59 05:59 05:59 Intake Total 120 Output Total 350 Balance -230 ICD10 Worksheet Patient Problems: Problems Problem Status Onset CAD (coronary artery disease) Acute Preoperative cardiovascular examination Acute
[2017-02-05] MEDS: ATORVASTATIN CALCIUM 20 MG TAB PO SCH (20:26)
[2017-02-05] MEDS: RAMIPRIL 5 MG CAP PO SCH (20:26)
[2017-02-05] MEDS: DOCUSATE SODIUM 100 MG CAP PO SCH (20:26)
[2017-02-05] MEDS: GABAPENTIN 300 MG CAP PO SCH (20:26)
[2017-02-05] MEDS: ASPIRIN 81 MG CHEWABLE TAB PO SCH (20:26)
[2017-02-05] MEDS: metFORMIN SR 500 MG TAB PO SCH (20:39)
[2017-02-06 04:55] LABS: ANION GAP 8 mEq/L (8-16); CALCIUM 8.9 mg/dL (8.5-10.4); CARBON DIOXIDE 28 mEq/l (22-31); CHLORIDE 100 mEq/L (97-110); CREATININE 0.8 mg/dL (0.7-1.3); GLOMERULAR FILTRATION RATE > 60; GLUCOSE 119 mg/dL (70-100); POTASSIUM 4.6 mEq/L (3.5-5.2); SODIUM 136 mEq/L (134-144)
[2017-02-06 05:59] LABS: HEMATOCRIT 31.9 % (40.0-51.0); HEMOGLOBIN 10.4 g/dL (13.7-17.5)
[2017-02-06] MEDS: OXYCODONE/APAP 5/325 TAB PO PRN ×5 (06:37→20:35)
[2017-02-06] MEDS: DOCUSATE SODIUM 100 MG CAP PO SCH ×2 (08:00→20:36)
[2017-02-06] MEDS: GABAPENTIN 300 MG CAP PO SCH ×2 (09:01→20:36)
[2017-02-06] MEDS: METOPROLOL SUCCINATE XR 50 MG TAB PO SCH (09:02)
--- NOTE | 2017-02-06 09:04 | SOAPPROG ---
SOAP Progress Note Assessment/Plan: Assessment/Plan: 66 Y M s/p L fem-pop bypass, POD#1. Excellent pedal pulses. Wounds well dressed with aquacell. OOB today. PT/OT today. Avoid severe bending at hip and knee. Regular diet. Continue pain control regimen as needed. Continue villa until more mobile--consider removal later today. Ok to shower with assist today if desires. Aquacell dressings should be able to get wet in shower and stay intact. Also seen by Dr. Amador. S: L knee painful. O: alert, nad mmm ctab rrr abd soft L: inc intact with aquacell dressing. R: intact. restapled at surgery. 2+ B DP pulses. 02/06/17 09:00 02/06/17 09:04 Objective: Vital Signs Temp Pulse Resp BP Pulse Ox 36.8 C 63 19 102/52 L 99 02/06/17 07:52 02/06/17 07:52 02/06/17 07:34 02/06/17 07:52 02/06/17 07:52 Laboratory Results 02/06/17 03:39 02/06/17 03:39 02/05/17 02/06/17 02/07/17 05:59 05:59 05:59 Intake Total 420 Output Total 1330 Balance -910 ICD10 Worksheet Patient Problems: Problems Problem Status Onset CAD (coronary artery disease) Acute Preoperative cardiovascular examination Acute
[2017-02-06] MEDS: RAMIPRIL 5 MG CAP PO SCH (20:36)
[2017-02-06] MEDS: ATORVASTATIN CALCIUM 20 MG TAB PO SCH (20:36)
[2017-02-06] MEDS: metFORMIN SR 500 MG TAB PO SCH (20:36)
[2017-02-06] MEDS: ASPIRIN 81 MG CHEWABLE TAB PO SCH (20:36)
[2017-02-07] MEDS: OXYCODONE/APAP 5/325 TAB PO PRN ×3 (02:43→20:38)
--- NOTE | 2017-02-07 08:32 | SOAPPROG ---
SOAP Progress Note Assessment/Plan: Assessment: 66 Y M s/p L fem-pop bypass, POD#2. Excellent pedal pulses. LLE wounds dressed with aquacell. Ambulation: OOB today. PT/OT- Avoid severe bending at hip and knee. Regular diet. Continue pain control regimen as needed. Ok to shower Aquacell dressings able to get wet in shower. Dispo: to home tomorrow. Also seen by Dr. Amador. S: Feeling great today, no complaints. O: alert, nad mmm abd soft L: inc intact with aquacell dressing. R: intact. restapled at surgery. 2+ B DP pulses. Objective: Vital Signs Temp Pulse Resp BP Pulse Ox 36.7 C 70 16 112/67 88 L 02/07/17 08:00 02/07/17 08:00 02/07/17 08:00 02/07/17 08:00 02/07/17 08:00 Laboratory Results 02/06/17 03:39 02/06/17 03:39 02/06/17 02/07/17 02/08/17 05:59 05:59 05:59 Intake Total 420 1350 Output Total 3496 6879 Balance -910 -325 ICD10 Worksheet Patient Problems: Problems Problem Status Onset CAD (coronary artery disease) Acute Preoperative cardiovascular examination Acute
[2017-02-07] MEDS: ENOXAPARIN 40 MG/0.4 ML SYR SC SCH (09:17)
[2017-02-07] MEDS: GABAPENTIN 300 MG CAP PO SCH ×2 (09:20→20:36)
[2017-02-07] MEDS: METOPROLOL SUCCINATE XR 50 MG TAB PO SCH (09:20)
[2017-02-07] MEDS: DOCUSATE SODIUM 100 MG CAP PO SCH ×2 (09:20→22:24)
[2017-02-07] MEDS ORDERED: LORazepam 0.5 MG TAB PO PRN (20:24)
[2017-02-07] MEDS: metFORMIN SR 500 MG TAB PO SCH (20:36)
[2017-02-07] MEDS: ATORVASTATIN CALCIUM 20 MG TAB PO SCH (20:36)
[2017-02-07] MEDS: RAMIPRIL 5 MG CAP PO SCH (20:36)
[2017-02-07] MEDS: ASPIRIN 81 MG CHEWABLE TAB PO SCH (20:36)
[2017-02-08] MEDS: ENOXAPARIN 40 MG/0.4 ML SYR SC SCH (08:29)
[2017-02-08] MEDS: METOPROLOL SUCCINATE XR 50 MG TAB PO SCH (08:32)
[2017-02-08] MEDS: GABAPENTIN 300 MG CAP PO SCH (08:32)
[2017-02-08] MEDS: DOCUSATE SODIUM 100 MG CAP PO SCH (08:32)
[2017-02-08] MEDS: OXYCODONE/APAP 5/325 TAB PO PRN ×2 (09:48→16:56)
[2017-02-08 11:33] VITALS: BP 98/52; PULSE 88; RESP 18; TEMP 98.1; O2SAT 92
--- NOTE | 2017-02-08 12:37 | SOAPPROG ---
SOAP Progress Note Assessment/Plan: Assessment: 66 Y M s/p L fem-pop bypass, POD#3. Excellent pedal pulses. LLE wounds dressed with aquacell. Ambulation: OOB today. PT/OT- Avoid severe bending at hip and knee. Regular diet. Continue pain control regimen as needed. Ok to shower Aquacell dressings able to get wet in shower. Right thigh staple removal today Dispo: to home today S: Feeling great today, no complaints. O: alert, nad mmm abd soft L: inc intact with aquacell dressing. R: intact. restapled at surgery. 2+ B DP pulses. Objective: Vital Signs Temp Pulse Resp BP Pulse Ox 36.7 C 88 18 98/52 L 92 02/08/17 11:32 02/08/17 11:32 02/08/17 11:32 02/08/17 11:32 02/08/17 11:32 Laboratory Results 02/06/17 03:39 02/06/17 03:39 02/07/17 02/08/17 02/09/17 05:59 05:59 05:59 Intake Total 1350 1430 240 Output Total 1448 6 400 Balance -325 -620 -160 ICD10 Worksheet Patient Problems: Problems Problem Status Onset CAD (coronary artery disease) Acute Preoperative cardiovascular examination Acute
--- NOTE | 2017-02-10 17:07 | ASMTCMCOM ---
CM Note CM Note Notes: CM Discharge Note: Patient will discharge home with home PT with [facility]. [facility] to contact patient this evening. He has friends/family to give him a ride home. Date Signed: 02/08/2017 03:04 PM Electronically Signed By:Cat Menjivar
== END 2017-02-08 18:02 | disposition home or self-care (01) | DRG 254 ==
LOC: F2W 07:30
PROVIDERS: ADMIT Surgery; ATTEND Surgery
PROC: 04CL0ZZ Extirpation of Matter from Left Femoral Artery, Open Approach (ICD-10-PCS; principal; 2017-02-05 09:15)
PROC: 041L0JL Bypass Left Femoral Artery to Popliteal Artery with Synthetic Substitute, Open Approach (ICD-10-PCS; principal; 2017-02-05 09:15)
PROC: 04CN0ZZ Extirpation of Matter from Left Popliteal Artery, Open Approach (ICD-10-PCS; principal; 2017-02-05 09:15)
DX: I74.3 Embolism and thrombosis of arteries of the lower extremities (principal); I73.9 Peripheral vascular disease, unspecified; I10 Essential (primary) hypertension; I25.10 Atherosclerotic heart disease of native coronary artery without angina pectoris; Z95.5 Presence of coronary angioplasty implant and graft; Z87.891 Personal history of nicotine dependence; Z85.46 Personal history of malignant neoplasm of prostate; B19.20 Unspecified viral hepatitis C without hepatic coma
CPT/HCPCS: 97116-GP; 97161-GP; 97166-GO; 97530-GP; 97535-GO; C1768; G8978-GP-CJ; G8979-GP-CI; G8987-GO-CJ; G8988-GO-CI; G8989-GO-CI; J0690; J1100; J1170; J1644; J1650; J2370; J2405; J2440; J2704; J2720; J3010; Q9961

== ENCOUNTER 2017-02-18 15:16 | Inpatient (IN) | payer OTHER, MEDICARE ==
[2017-02-18] MEDS ORDERED: ONDANSETRON 4 MG/2 ML VIAL IVP PRN (15:27)
[2017-02-18] MEDS ORDERED: HEPARIN 10,000 UNIT/10 ML MDV IVP ONE (15:28)
[2017-02-18] MEDS ORDERED: HEPARIN 10,000 UNIT/10 ML MDV IVP PRN (15:28)
--- NOTE | 2017-02-18 16:21 | SOAPPROG ---
LORENZO Progress Note Assessment/Plan: Assessment: 66-YEAR-OLD MALE WITH RECENT A RIGHT COMMON FEMORAL ARTERY ENDARTERECTOMY AND FEMORAL-POPLITEAL BYPASS WITH PROFUNDOPLASTY ON THE RIGHT PRESENTS TODAY WITH DECREASED PEDAL PULSES ON THE RIGHT CTA CONFIRMS OCCLUSION OF HIS FEMORAL POPLITEAL BYPASS WITH ADEQUATE RUNOFF IR DOES NOT FEEL WOULD BE VERY FEASIBLE FOR THROMBOLYSIS WITH HIS RECENT BILATERAL GROIN SURGERY HIS LEGS QUITE VIABLE WITH NO PARTICULAR PROBLEMS EXCEPT THAT HE HAS SOME NEUROPATHIC LESIONS ON THE HEEL ON BOTH FEET ON THE LATERAL ASPECT RISKS AND OPTIONS FULLY DISCUSSED AND HE AGREES WITH ADMISSION FOR THROMBECTOMY Plan: ADMIT FOR FULL HEPARIN THERAPY AND THROMBECTOMY 02/18/17 16:19 ICD10 Worksheet Patient Problems: Problems Problem Status Onset Preoperative cardiovascular examination Acute CAD (coronary artery disease) Acute
--- NOTE | 2017-02-18 16:33 | WOCRNPDOC ---
SANDRA Advanced Assessment Note - Skin Integrity Problem, Advanced Assess Right Lateral Heel Pressure Injury Dressing Type: Open to Air Exudate Amount: None Gabrielle Wound Tissue: Blanching, Erythema Wound Bed Color: Brown, Red, Yellow Wound Bed Constitution: Smooth Tissue (5% circumferentially), Mixed Loose & Adhered Slough/Eschar (95%) Wound Edges: Attached Site Measurement - Head-to-Toe Length X Width X Depth (cm): 1.3x1.8x0.1 Pressure Injury Stage: Unstageable Pressure Injury Present on Admit: Yes Skin Integrity Problem Comment: Patient endorses lying in bed without shifting weight on heels and for playing poker for 8 hours with heels resting in one position. Will initiate autolytic debridement and round again later this week. Left Lateral Heel Pressure Injury Dressing Type: Open to Air Exudate Amount: None Site Measurement - Head-to-Toe Length X Width X Depth (cm): 2.8x1.9x0 Pressure Injury Stage: Deep Tissue Injury (DTI) Pressure Injury Present on Admit: Yes Skin Integrity Problem Comment: Heel with a circular area of brown discoloration under the skin that is fading. This is likely from a healing sangenous blister that may have been a deep tissue injury. There is a small area of red/purple in the center of this wound which may be a more recent deep tissue injury. No external wound care necessary at this time. Will watch pamela. Danya SNOW in room for care.
[2017-02-18 16:43] LABS: % IMMATURE GRANULYOCYTES 0.4 % (0.0-1.1); ABSOLUTE IMMATURE GRANULOCYTES 0.03 10^3/uL (0.00-0.10); ADD DIFF? NO; ADD MORPH? NO; ADD SCAN? NO; ATYPICAL LYMPHOCYTE FLAG 20 (0-99); FRAGMENT RBC FLAG 0 (0-99); HEMATOCRIT 34.7 % (40.0-51.0); HEMOGLOBIN 11.2 g/dL (13.7-17.5); LEFT SHIFT FLG 0 (0-99); LIPEMIA HEMOLYSIS FLAG 80 (0-99); MEAN CELL HEMOGLOBIN 28.6 pg (27.9-34.1); MEAN CELL HEMOGLOBIN CONCENTR. 32.3 g/dL (32.4-36.7); MEAN CELL VOLUME 88.5 fL (81.5-99.8); MEAN PLATELET VOLUME 9.8 fL (8.7-11.7); PLATELET CLUMPS FLAG 0 (0-99); PLATELET COUNT 303 10^3/uL (150-400); RED BLOOD CELL COUNT 3.92 10^6/uL (4.40-6.38); RED CELL DISTRIBUTION WIDTH 14.1 % (11.5-15.2)
[2017-02-18] MEDS: NS W/ 20 KCl/L 1,000 ML IV SCH (16:56)
[2017-02-18 17:07] LABS: ALANINE AMINOTRANSFERASE 27 IU/L (21-72); ALBUMIN 4.1 g/dL (3.5-5.0); ALKALINE PHOSPHATASE 75 IU/L (38-126); ANION GAP 13 mEq/L (8-16); ASPARTATE AMINOTRANSFERASE 18 IU/L (17-59); BILIRUBIN,TOTAL 0.5 mg/dL (0.1-1.4); CALCIUM 9.3 mg/dL (8.5-10.4); CARBON DIOXIDE 22 mEq/l (22-31); CHLORIDE 102 mEq/L (97-110); CREATININE 0.7 mg/dL (0.7-1.3); GLOMERULAR FILTRATION RATE > 60; GLUCOSE 88 mg/dL (70-100); POTASSIUM 4.2 mEq/L (3.5-5.2); SODIUM 137 mEq/L (134-144); TOTAL PROTEIN 7.1 g/dL (6.3-8.2)
[2017-02-18 17:15] LABS: INR 1.04 (0.83-1.16); PROTIME(PATIENT) 13.5 SEC (12.0-15.0)
[2017-02-18 17:16] LABS: APTT 28.8 SEC (23.0-38.0)
[2017-02-18] MEDS: HEPARIN/DEXTROSE 500 ML IV SCH (17:36)
--- NOTE | 2017-02-18 18:03 | GHP ---
[f rep st] HISTORY AND PHYSICAL DATE OF ADMISSION: 02/18/2017 HISTORY OF PRESENT ILLNESS: The patient is a 66-year-old male with severe peripheral vascular diseas e, with a remote history of an aortobifem bypass and, more recently, a history of a right common femo ral artery endarterectomy with right profundoplasty and right femoral popliteal bypass on 01/22/2017, and a left common femoral and profunda endarterectomy with profundoplasty and femoral-popliteal bypa ss on 02/05/2017. Prior to this, he required cardiac clearance with cardiac catheterization. He had been doing well when he was discharged from the hospital. However, in his postop appointment with u s today, he complained of some similar claudication pain in his right calf compared to prior to his s urgery. He had good left pedal pulses but diminished right pedal pulses, and so he was sent for CT a ngiogram. This did show occlusion of his right femoral-popliteal jump graft. Of note, it did show w idely patent left femoral-popliteal graft. Please see report for full details. After discussion bet sree Amador and Dr. Dubois, it was elected to admit him to the hospital to undergo surgical interv ention with thrombectomy. PAST MEDICAL HISTORY: Peripheral arterial disease and lower extremity revascularization procedures a s described above. Also, coronary artery disease, coronary stents, recent cardiac catheterization as described above, bronchitis, diverticulitis, L4-L5 disk bulging, sciatica, degenerative spondylolist hesis, metabolic syndrome, neuropathy, prostate cancer, hypertension, and hepatitis C. PAST SURGICAL HISTORY: Please see vascular surgery description above. MEDICATIONS: Include aspirin, Cialis, gabapentin, Lipitor, metformin, metoprolol, Niaspan, ramipril. ALLERGIES: No known drug allergies. 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 He is single and lives alone. He is a former tobacco sm oker and lost about 25 pounds when he stopped drinking alcohol, stopped smoking and started eating mo re healthy. FAMILY MEDICAL HISTORY: Includes coronary artery disease. REVIEW OF SYSTEMS: Includes shortness of breath and leg pain. Otherwise, a 10-point review of syste ms is negative, aside from that in the HPI. PHYSICAL EXAMINATION: GENERAL: Reveals a 66-year-old male, alert and oriented x3, and in no acute d istress, use of a cane. HEENT: Normocephalic, atraumatic. CHEST: Clear to auscultation bilaterall y, without wheezes. CARDIAC: Regular rate and rhythm, without murmurs. ABDOMEN: Soft, nontender. No pulsatile masses. EXTREMITIES: Warm, dry, with palpable left pedal pulses and poor to fair righ t pedal pulses on Doppler exam. Incisions of both legs are clean, dry and intact, the left leg still with krystle. He does have 2 lateral calcaneal pressure ulcers. On the right, there is a scab that is dry. On the left, there is simply color change, and it is also dry. He does have some erythema around his right calcaneal ulcer with tenderness. In general, he has peripheral neuropathy. IMPRESSION: This is a 66-year-old male with severe peripheral vascular disease, status post many int erventions as described above, now with an occluded right femoral-popliteal graft. PLAN: Again, plan will be to admit the patient. We will start a heparin drip. We will get all the appropriate labs. He will likely require surgical intervention with thrombectomy and possible revisi on of his right femoral-popliteal graft tomorrow. We will also start some IV antibiotics for his rig ht calcaneal pressure ulcer, which is likely secondary to his neuropathy and may have some early infe ction. /[id number]/MODL
[2017-02-19] MEDS: NS W/ 20 KCl/L 1,000 ML IV SCH ×2 (00:40→08:48)
[2017-02-19] MEDS: HYDROmorphONE/DILAUDID 1 MG/ML INJ IVP PRN ×3 (00:40→21:14)
[2017-02-19] MEDS: HEPARIN/DEXTROSE 500 ML IV SCH ×2 (08:48→19:58)
--- NOTE | 2017-02-19 10:05 | ASMTCMCOM ---
CM Note CM Note Notes: CM spoke w/ HAYLEY Sampson. Pt is a 66 y/o male w/ a hx of right common femoral artery endarterectomy with right profundoplasty and right femoral popliteal by pass on 01/22/17, and a left common femoral and profunda endarterectomy with profundoplasty and femoral-popliteal bypass on 02/05/17. Pt will be undergo surgical intervention with thrombectomy today and will most likely be transferred to PCU afterwards. Pts needs are TBD. CM to follow once out of surgery. Date Signed: 02/19/2017 10:05 AM Electronically Signed By:MARIBEL Foreman
--- NOTE | 2017-02-19 10:53 | SOAPPROG ---
SOBAI[facility] Progress Note Assessment/Plan: Assessment/Plan: 66 Y M PVD, s/p B fem pop bypasses, and remote aortobifem bypass, now with occluded R fem pop bypass. On heparin gtt--turn off on floor before going to preop. Still poorly audible pedal pulses on right on doppler. Pulses strongly palpable on left. Plan for OR today for thrombectomy, possible revision of fem pop graft. Again, risks and options discussed and he requests to proceed. Consent in chart. On scheduled abx. NPO. Also, pressure offloading boots for calcaneal ulcers that he presented to us with. sleepy but arousable ctab rrr abd soft wounds intact ext: see above 02/19/17 10:49 Objective: Vital Signs Temp Pulse Resp BP Pulse Ox 36.6 C 73 20 122/69 H 94 02/19/17 08:34 02/19/17 08:34 02/19/17 08:34 02/19/17 08:34 02/19/17 08:34 Laboratory Results 02/18/17 16:35 02/18/17 16:35 02/18/17 02/19/17 02/20/17 05:59 05:59 05:59 Intake Total 1602 Output Total 375 Balance 1227 PT 13.5 SEC (12.0-15.0) 02/18/17 16:35 INR 1.04 (0.83-1.16) 02/18/17 16:35 ICD10 Worksheet Patient Problems: Problems Problem Status Onset CAD (coronary artery disease) Acute Preoperative cardiovascular examination Acute
[2017-02-19] MEDS ORDERED: LR 1,000 ML IV ONE (14:34)
[2017-02-19] MEDS ORDERED: ALTEPLASE 5 MG in NS 100 ML IV ONE (15:00)
--- NOTE | 2017-02-19 15:40 | PDANEPAE ---
ANE Past Medical History - Cardiovascular History Hx Hypertension: Yes Hx Arrhythmias: No Hx Chest Pain: No Hx Coronary Artery / Peripheral Vascular Disease: Yes Hx CHF / Valvular Disease: No Hx Palpitations: No Cardiovascular History Comment: HYPERLIPIDEMIA. CARDIAC STENTS - Pulmonary History Hx COPD: Yes Hx Asthma/Reactive Airway Disease: No Hx Recent Upper Respiratory Infection: No Hx Oxygen in Use at Home: No Hx Sleep Apnea: No Sleep Apnea Screening Result - Last Documented: Positive Pulmonary History Comment: CHRONIC BRONCHITIS - Neurologic History Hx Cerebrovascular Accident: No Hx Seizures: No Hx Dementia: No - Endocrine History Hx Diabetes: Yes Endocrine History Comment: ELEVATED GLUCOSE - METFORMIN - Renal History Hx Renal Disorders: No - Liver History Hx Hepatic Disorders: No - Neurological & Psychiatric Hx Hx Neurological and Psychiatric Disorders: No - Cancer History Hx Cancer: No Cancer History Comment: PROSTATE CA - Congenital Disorder History Hx Congenital Disorders: No - GI History Hx Gastrointestinal Disorders: No - Other Health History Other Health History: R leg is "larger than L leg-Dr Amador aware 01/30/17." Some redness noted also. - Chronic Pain History Chronic Pain: Yes (LEG RAMIN PAIN) - Surgical History Prior Surgeries: R femoral popliteal bypass 01-22-17;. AORTA BYPASS 10 YRS AGO. ANGIOPLASTY W/STENTS. PROSTATE RADIOACTIVE IMPLANT. SKIN GRAFTS R LEG ANE Review of Systems Review of Systems: ANE Patient History - Allergies Allergies/Adverse Reactions: No Known Allergies Allergy (Verified 01/31/17 16:49) - Home Medications Home Medications: Aspirin [Aspirin 81mg (*)] 81 mg PO HS 01/22/17 [Last Taken 02/17/17] Atorvastatin Calcium [Lipitor 20 mg (*)] 20 mg PO HS 01/22/17 [Last Taken ] Gabapentin [Neurontin 300 MG (*)] 300 mg PO BID 01/22/17 [Last Taken 02/17/17] Metoprolol Succinate Xr [Toprol Xl 50 mg (*)] 50 mg PO HS 01/22/17 [Last Taken 02/17/17] [place]-3 Fatty Acids [Fish Oil 1000 mg (*)] 1,000 mg PO DAILY 01/22/17 [Last Taken 02/04/17] Ramipril [Altace 5mg (*)] 5 mg PO HS 01/22/17 [Last Taken 02/17/17] metFORMIN HCL [Metformin HCl ER] 1,000 mg PO DAILY 01/22/17 [Last Taken 02/18/17 ] Diphenoxylate HCl/Atrop Sulf [Lomotil Tab (*)] 1 tab PO BID PRN 02/18/17 [Last Taken Unknown] Herbals/Supplements -Info Only 1 ea PO DAILY 02/18/17 [Last Taken Unknown] LORazepam [Ativan (*)] 0.5 mg PO HS 02/18/17 [Last Taken 02/17/17] - NPO status NPO Since - Liquids (Date): 02/18/17 NPO Since - Liquids (Time): 23:59 NPO Since - Solids (Date): 02/18/17 NPO Since - Solids (Time): 23:59 - Smoking Hx Smoking Status: Former smoker - Family Anes Hx Family Hx Anesthesia Complications: NEG ANE Labs/Vital Signs - Labs Result Diagrams: 02/18/17 16:35 02/18/17 16:35 - Vital Signs Blood Pressure: 141/71 Heart Rate: 66 Respiratory Rate: 18 O2 Sat (%): 95 Height: 177.8 cm Weight: 87.9 kg ANE Physical Exam - Airway Mallampati Score: Class 1 - ASA Status ASA Status: III ANE Anesthesia Plan Anesthesia Plan: general endotracheal anesthesia
[2017-02-19] MEDS ORDERED: BUPIVACAINE 0.5% 30 ML SDV ONE (15:55)
[2017-02-19] MEDS ORDERED: THROMBIN (BOVINE) 20,000 UNIT SPRAY TP ONE (15:55)
[2017-02-19] MEDS ORDERED: PROTAMINE SULFATE 50 MG/5 ML VIAL IVP ONE (15:55)
[2017-02-19] MEDS ORDERED: PAPAVERINE HCL 60 MG/2 ML SDV ONE (15:56)
[2017-02-19] MEDS ORDERED: IOTHALAMATE MEG (CONRAY) 50 ML VIAL IV ONE (15:56)
[2017-02-19] MEDS ORDERED: ONDANSETRON 4 MG/2 ML VIAL IVP PRN (18:07)
--- NOTE | 2017-02-19 18:11 | POSTOPPROG ---
Post Op Note Date of Operation: 02/19/17 Surgeon: Dm Amador Court Assistant: Naz Marquis Anesthesiologist: Mathew Reyes Anesthesia: GET(General Endotracheal) Pre-op Diagnosis: PAD, thrombosed fem pop graft Post-op Diagnosis: same Procedure: surgical thrombectomy, intraop angio, TPA lysis, gortex patch closure Findings: good in and back flow post procedure, fair pulses post op Inf/Abcess present in the surg proc area at time of surgery?: No EBL: 550cc Complications: none Specimen(s): thrombectomy clot to path
[2017-02-19] MEDS ORDERED: PROMETHAZINE HCL 25 MG/ML INJ IVP PRN (18:15)
[2017-02-19] MEDS ORDERED: LR 500 ML IV PRN (18:15)
[2017-02-19] MEDS ORDERED: MEPERIDINE 25 MG/ML SYR IVP PRN (18:15)
[2017-02-19] MEDS ORDERED: NALOXONE HCL 0.4 MG/ML INJ IVP PRN (18:15)
[2017-02-19] MEDS ORDERED: fentaNYL 100 MCG/2 ML INJ IVP PRN (18:15)
[2017-02-19] MEDS ORDERED: ALBUTEROL 3 ML DEYVIAL IH PRN (18:15)
--- NOTE | 2017-02-19 18:16 | POSTANESTH ---
Post Anesthetic Evaluation Cardiovascular Status: Similar to Pre-Op Cond Respiratory Status: Similar to Pre-op Cond. Level of Consciousness/Mental Status: Can Participate in Eval Pain Control: Adequate, Prn Tx Ordered Nausea/Vomiting Control: Adequate, Prn Tx Ordered Complications Possibly Related to Anesthesia: None Noted
[2017-02-19] MEDS: OXYCODONE/APAP 5/325 TAB PO PRN (20:10)
[2017-02-19] MEDS: LORazepam 1 MG TAB PO PRN (21:14)
[2017-02-20] MEDS: HYDROmorphONE/DILAUDID 1 MG/ML INJ IVP PRN ×4 (00:19→21:26)
[2017-02-20] MEDS: OXYCODONE/APAP 5/325 TAB PO PRN ×3 (00:19→19:14)
[2017-02-20 05:40] LABS: % IMMATURE GRANULYOCYTES 0.4 % (0.0-1.1); ABSOLUTE IMMATURE GRANULOCYTES 0.04 10^3/uL (0.00-0.10); ADD DIFF? NO; ADD MORPH? NO; ADD SCAN? NO; ATYPICAL LYMPHOCYTE FLAG 20 (0-99); FRAGMENT RBC FLAG 0 (0-99); HEMATOCRIT 30.6 % (40.0-51.0); HEMOGLOBIN 9.9 g/dL (13.7-17.5); LEFT SHIFT FLG 0 (0-99); LIPEMIA HEMOLYSIS FLAG 80 (0-99); MEAN CELL HEMOGLOBIN 28.6 pg (27.9-34.1); MEAN CELL HEMOGLOBIN CONCENTR. 32.4 g/dL (32.4-36.7); MEAN CELL VOLUME 88.4 fL (81.5-99.8); MEAN PLATELET VOLUME 9.6 fL (8.7-11.7); PLATELET CLUMPS FLAG 0 (0-99); PLATELET COUNT 265 10^3/uL (150-400); RED BLOOD CELL COUNT 3.46 10^6/uL (4.40-6.38); RED CELL DISTRIBUTION WIDTH 13.9 % (11.5-15.2)
[2017-02-20] MEDS: NS W/ 20 KCl/L 1,000 ML IV SCH (06:05)
--- NOTE | 2017-02-20 09:48 | GOP ---
[f rep st] OPERATIVE REPORT DATE OF OPERATION: 02/19/2017 SURGEON: Dm Amador MD PHLEBOTOMY LAB ASSISTANT: MIMA Diaz. ANESTHESIOLOGIST: Dr. Reyes. PREOPERATIVE DIAGNOSIS: Occluded right femoral popliteal bypass graft. POSTOPERATIVE DIAGNOSIS: Occluded Right femoral popliteal bypass graft. PROCEDURE PERFORMED: Graft thromboembolectomy with patch angioplasty and operative angiography. FINDINGS: Patient was found with occluded graft. The distal anastomosis appeared to be quite adequa te, normal. Runoff was somewhat compromised by distal embolic appearing material. There appeared to be possible embolus to the origin of the bypass graft. There was no significant stenosis seen. DESCRIPTION OF PROCEDURE: The patient was taken to the operating room where he received satisfactory general endotracheal anesthesia by Dr. Reyes. He was placed in the supine position, prepped and dr aped in the usual sterile fashion. Incision was made in the inguinal area through the previous old i ncision. Dissection was carried carefully down into the femoral-popliteal graft to be dissected free from the scar tissue. The graft was identified below the previous anastomosis, but dissection in th at area was extremely difficult to dangerous because of a recent surgery in the area and the old scar tissue as well. A femoral-popliteal Surveyor-Yousif graft was dissected free and controlled with vessel lo ops above and below. The patient was systemically heparinized. Arteriotomy was made in the femoral- popliteal graft in a longitudinal direction. Embolectomy catheters were introduced. They were passe d distally with ease and well down the leg and all debris distally was pulled with the embolectomy ca theters. Angiography was then done distally, which showed patent anastomosis and runoff to the ankle ; although some patchy defects in the runoff vessels. Attention was then turned cephalad and multipl e passages of the embolectomy catheter inflow was re-established in a normal fashion. There appeared to be embolic material at the origin of the bypass graft which was removed with embolectomy catheter s. Angiography was done cephalad as well, which showed no significant stenoses. Arteriotomy was the n closed with a Surveyor-Yousif patch and a running Hemashield 6 suture and flow was reestablished. It demo nstrated a good popliteal pulse. It demonstrated Doppler pedal pulses, although not palpable as he h as had before this recent event. His foot was warm with good capillary filling, and he demonstrated good backflow from the distal vessel previously. Anterior myotomy was closed with a Surveyor-Yousif patch w hich was sutured in with a Hemashield 6 suture and flow was reestablished. The wounds were irrigated . Heparin was not reversed. Wounds were sprayed with some topical thrombin, closed in layers with 2 -0 Vicryl for the fascia, 3-0 Vicryl for the subcu and skin krystle for the skin. The wounds were in filtrated with 0.5% Marcaine. He tolerated the procedure quite well. COMPLICATIONS: There were no complications. /[id number]/MODL
--- NOTE | 2017-02-20 14:28 | ASMTCMCOM ---
CM Note CM Note Notes: Spoke w/pt, he is current w/ [facility], get RN/PT/OT, CM w/f. Date Signed: 02/20/2017 02:28 PM Electronically Signed By:Lissette Valle RN
[2017-02-21] MEDS: OXYCODONE/APAP 5/325 TAB PO PRN ×2 (00:09→04:36)
[2017-02-21] MEDS: HYDROmorphONE/DILAUDID 1 MG/ML INJ IVP PRN ×3 (00:22→04:56)
[2017-02-21] MEDS: HEPARIN/DEXTROSE 500 ML IV SCH (00:23)
[2017-02-21] MEDS: NS W/ 20 KCl/L 1,000 ML IV SCH (00:23)
[2017-02-21] MEDS: LORazepam 1 MG TAB PO PRN ×2 (03:08→23:46)
--- NOTE | 2017-02-21 18:35 | SOAPPROG ---
SOAP Progress Note Assessment/Plan: Assessment: 66yo male POD #2 s/p right fem pop bypass thrombectomy. Hx of bilateral fem pop bypasses Cont heparin drip May ambulate as tolerated Regular diet Continue pain control F/u art studies Cont off loading boots for calcaneal ulcers present upon admission to us S: Pt upset that he clotted off his graft after recovering so well immediately after surgery. Otherwise no complaints. Pain controlled. O: Pt lying in bed, NAD No increased WOB Full sensation, strength in bilateral LE Dp pulses palpable LLE incisional wound C/D/I with krystle RLE wound dressed without shadowing Objective: Vital Signs Temp Pulse Resp BP Pulse Ox 36.6 C 79 24 H 138/70 H 97 02/21/17 15:31 02/21/17 15:31 02/21/17 15:31 02/21/17 15:31 02/21/17 15:31 Laboratory Results 02/20/17 05:22 02/18/17 16:35 02/20/17 02/21/17 02/22/17 05:59 05:59 05:59 Intake Total 3382 500 4147 Output Total 2575 3400 2327 Balance 807 -2900 1820 PT 13.5 SEC (12.0-15.0) 02/18/17 16:35 INR 1.04 (0.83-1.16) 02/18/17 16:35 ICD10 Worksheet Patient Problems: Problems Problem Status Onset CAD (coronary artery disease) Acute Preoperative cardiovascular examination Acute
--- NOTE | 2017-02-22 10:35 | SOAPPROG ---
SOAP Progress Note Assessment/Plan: Assessment: 66yo male POD #3 s/p right fem pop bypass thrombectomy. Hx of bilateral fem pop bypasses Cont heparin drip Will start of Plavix and warfarin Staple removal of LLE incision RLE incision may be left to air Ambulate as tolerated Regular diet Continue pain control Cont off loading boots for calcaneal ulcers present upon admission to us Seen c Dr. Amador S: Pt has no complaints. Pain controlled. Discussed need for anticoagulation. Discussed activity limitations including no severe bending at the hips. O: Pt lying in bed, NAD No increased WOB Full sensation, strength in bilateral LE Dp pulses palpable LLE incisional wound C/D/I with krystle RLE wound C/D/I with krystle. No erythema, induration, or drainage. Objective: Vital Signs Temp Pulse Resp BP Pulse Ox 36.8 C 78 20 160/82 H 96 02/22/17 07:46 02/22/17 07:46 02/22/17 07:46 02/22/17 07:46 02/22/17 07:46 Laboratory Results 02/20/17 05:22 02/18/17 16:35 02/21/17 02/22/17 02/23/17 05:59 05:59 05:59 Intake Total 500 4647 Output Total 3400 3927 325 Balance -2900 720 -325 PT 13.5 SEC (12.0-15.0) 02/18/17 16:35 INR 1.04 (0.83-1.16) 02/18/17 16:35 ICD10 Worksheet Patient Problems: Problems Problem Status Onset CAD (coronary artery disease) Acute Preoperative cardiovascular examination Acute
[2017-02-22] MEDS: CLOPIDOGREL BISULFATE 75 MG TAB PO SCH (11:05)
[2017-02-22] MEDS: WARFARIN SODIUM 5 MG TAB PO SCH ×2 (11:05→16:27)
[2017-02-22] MEDS ORDERED: DIPHENOXYLATE/ATROPINE LOMOTIL 1 TAB PO PRN (11:10)
[2017-02-22] MEDS ORDERED: NON-FORMULARY NEW DRUG (Metformin Hcl [Metformin Hcl Er] 1,000 MG) PO SCH (11:15)
[2017-02-22] MEDS: metFORMIN SR 500 MG TAB PO SCH (12:18)
--- NOTE | 2017-02-22 16:23 | WOCRNPDOC ---
WOCRN Advanced Assessment Note - Skin Integrity Problem, Advanced Assess Right Lateral Heel Pressure Injury Dressing Type: Hydrocolloid Dressing Description: Not Intact Exudate Amount: Scant Exudate Color: Reddish/Yellow Exudate Characteristic(s): Serosanguinous Integumentary Issue Intervention: Dressing Changed, Conservative Sharp Bedside Debridement (see documentation) Kayla Wound Tissue: Erythema (blanching, discrete), Macerated Kayla Wound Swelling: None Wound Bed Color: Brown, Red, Yellow Wound Bed Constitution: Granulation Tissue, Mixed Loose & Adhered Slough/Eschar Wound Edges: Well Defined Site Odor: None Site Measurement - Head-to-Toe Length X Width X Depth (cm): 0.8cmx0.9cmx0.3cm Pressure Injury Stage: Stage 3 Pressure Injury Present on Admit: Yes Skin Integrity Problem Comment: Wound sharp debrided at bedside after time out performed and consent obtained. Previously wound bed comprised of 95% adhered eschar/slough, w/ thin rim of granulation on margins. Post debridement w/ #15 scalpel, wound debrided down to granulation tissue. No measurable or significant blood loss. There is mild, discrete periwound erythema kayla-wound, but no swelling observed. Wound flushed w/ NS, and Hydrofera Blue ready foam placed into wound bed, followed by [employer]. Patient will continue to wear off-loading heel boots ongoing to prevent further injury to site. Conservative Sharp Bedside Debridement Performed: Yes Consent Signed for Debridement: Yes (In patient's chart.) Timeout Performed per Protocol: Yes Instrument Used for Debridement: Scapel (#15) Measurements Before Debridement: 0.8cmx0.9cmx0.1cm Measurements After Debridement: 0.8cmx0.9cmx0.3cm Estimated Blood Loss from Debridement: 0 Conservative Sharp Bedside Debridement Outcome: Down to Viable Tissue, Hemostasis Achieved Left Lateral Heel Pressure Injury Dressing Type: Open to Air Exudate Amount: None Exudate Characteristic(s): None Kayla Wound Tissue: Intact, Dry Kayla Wound Swelling: None Wound Bed Color: Yellow Wound Bed Constitution: Intact Serous Filled Blister (dry, hard, absorbed) Site Measurement - Head-to-Toe Length X Width X Depth (cm): 2.7cmx1.7doh0ms Pressure Injury Present on Admit: Yes Skin Integrity Problem Comment: Intact, flat blister-like wound noted on L lateral heel, no exudate or fluctuance. Appearance indicates fluid has reabsorbed and overlying skin is re-attaching. Kayla-wound skin is dry and calloused, no swelling or erythema. Continue to monitor site and ezekiel off- loading boots.
[2017-02-22] MEDS: LORazepam 1 MG TAB PO SCH (21:21)
[2017-02-22] MEDS: RAMIPRIL 5 MG CAP PO SCH (21:21)
[2017-02-22] MEDS: METOPROLOL SUCCINATE XR 50 MG TAB PO SCH (21:22)
[2017-02-22] MEDS: ATORVASTATIN CALCIUM 20 MG TAB PO SCH (21:22)
[2017-02-22] MEDS: GABAPENTIN 300 MG CAP PO SCH (21:22)
[2017-02-22] MEDS: ASPIRIN 81 MG CHEWABLE TAB PO SCH (21:22)
[2017-02-23] MEDS: HEPARIN/DEXTROSE 500 ML IV SCH (05:10)
[2017-02-23 06:13] LABS: APTT 32.2 SEC (23.0-38.0); INR 1.15 (0.83-1.16); PROTIME(PATIENT) 14.7 SEC (12.0-15.0)
[2017-02-23] MEDS: CLOPIDOGREL BISULFATE 75 MG TAB PO SCH (10:36)
[2017-02-23] MEDS: metFORMIN SR 500 MG TAB PO SCH (10:37)
[2017-02-23] MEDS: GABAPENTIN 300 MG CAP PO SCH ×2 (10:37→21:08)
[2017-02-23] MEDS: WARFARIN SODIUM 5 MG TAB PO SCH (16:21)
--- NOTE | 2017-02-23 17:44 | SOAPPROG ---
LORENZO Progress Note Assessment/Plan: Assessment: 66-YEAR-OLD MALE WITH RECENT A RIGHT COMMON FEMORAL ARTERY ENDARTERECTOMY AND FEMORAL-POPLITEAL BYPASS WITH PROFUNDOPLASTY ON THE RIGHT PRESENTS TODAY WITH DECREASED PEDAL PULSES ON THE RIGHT CTA CONFIRMS OCCLUSION OF HIS FEMORAL POPLITEAL BYPASS WITH ADEQUATE RUNOFF IR DOES NOT FEEL WOULD BE VERY FEASIBLE FOR THROMBOLYSIS WITH HIS RECENT BILATERAL GROIN SURGERY HIS LEGS QUITE VIABLE WITH NO PARTICULAR PROBLEMS EXCEPT THAT HE HAS SOME NEUROPATHIC LESIONS ON THE HEEL ON BOTH FEET ON THE LATERAL ASPECT RISKS AND OPTIONS FULLY DISCUSSED AND HE AGREES WITH ADMISSION FOR THROMBECTOMY Plan: ADMIT FOR FULL HEPARIN THERAPY AND THROMBECTOMY 02/18/17 16:19 02/23/17 17:43 AMBULATING BETTER ROOM BUT PULSES WEAKER ON THE RIGHT/AWAIT ARTERIAL STUDIES/ MAY NEED FOLLOW-UP CTA WOUND OKAY/AFEBRILE/INR SUBTHERAPEUTIC Objective: Vital Signs Temp Pulse Resp BP Pulse Ox 36.1 C 83 16 93/61 L 96 02/23/17 15:24 02/23/17 15:24 02/23/17 15:24 02/23/17 15:24 02/23/17 15:24 Laboratory Results 02/20/17 05:22 02/18/17 16:35 02/22/17 02/23/17 02/24/17 05:59 05:59 05:59 Intake Total 4645 2010 Output Total 5828 0960 Balance 720 561 PT 14.7 SEC (12.0-15.0) 02/23/17 04:34 INR 1.15 (0.83-1.16) 02/23/17 04:34 ICD10 Worksheet Patient Problems: Problems Problem Status Onset CAD (coronary artery disease) Acute Preoperative cardiovascular examination Acute
[2017-02-23] MEDS: LORazepam 1 MG TAB PO SCH (21:08)
[2017-02-23] MEDS: ATORVASTATIN CALCIUM 20 MG TAB PO SCH (21:09)
[2017-02-23] MEDS: ASPIRIN 81 MG CHEWABLE TAB PO SCH (21:09)
[2017-02-23] MEDS: METOPROLOL SUCCINATE XR 50 MG TAB PO SCH (21:09)
[2017-02-23] MEDS: RAMIPRIL 5 MG CAP PO SCH (21:09)
[2017-02-24 05:15] LABS: INR 1.44 (0.83-1.16); PROTIME(PATIENT) 17.5 SEC (12.0-15.0)
[2017-02-24] MEDS: metFORMIN SR 500 MG TAB PO SCH (10:06)
[2017-02-24] MEDS: GABAPENTIN 300 MG CAP PO SCH ×2 (10:07→21:27)
[2017-02-24] MEDS: CLOPIDOGREL BISULFATE 75 MG TAB PO SCH (10:07)
--- NOTE | 2017-02-24 10:12 | ASMTCMCOM ---
CM Note CM Note Notes: Spoke with patient about discharge plan, he is still in agreement with home with home care (PT/OT/RN). Sent notes to [facility]. Dr Amador still awaiting arterial studies, says patient may need f/u CTA. Patient requested to work with PT while inpatient, HAYLEY Cai to order PT eval. CM to follow. Date Signed: 02/24/2017 10:12 AM Electronically Signed By:Cat Menjivar RN
[2017-02-24] MEDS: HEPARIN/DEXTROSE 500 ML IV SCH (13:32)
--- NOTE | 2017-02-24 14:29 | SOAPPROG ---
LORENZO Progress Note Assessment/Plan: Assessment: 66-YEAR-OLD MALE WITH RECENT A RIGHT COMMON FEMORAL ARTERY ENDARTERECTOMY AND FEMORAL-POPLITEAL BYPASS WITH PROFUNDOPLASTY ON THE RIGHT PRESENTS TODAY WITH DECREASED PEDAL PULSES ON THE RIGHT CTA CONFIRMS OCCLUSION OF HIS FEMORAL POPLITEAL BYPASS WITH ADEQUATE RUNOFF IR DOES NOT FEEL WOULD BE VERY FEASIBLE FOR THROMBOLYSIS WITH HIS RECENT BILATERAL GROIN SURGERY HIS LEGS QUITE VIABLE WITH NO PARTICULAR PROBLEMS EXCEPT THAT HE HAS SOME NEUROPATHIC LESIONS ON THE HEEL ON BOTH FEET ON THE LATERAL ASPECT RISKS AND OPTIONS FULLY DISCUSSED AND HE AGREES WITH ADMISSION FOR THROMBECTOMY Plan: ADMIT FOR FULL HEPARIN THERAPY AND THROMBECTOMY 02/18/17 16:19 02/23/17 17:43 AMBULATING BETTER ROOM BUT PULSES WEAKER ON THE RIGHT/AWAIT ARTERIAL STUDIES/ MAY NEED FOLLOW-UP CTA WOUND OKAY/AFEBRILE/INR SUBTHERAPEUTIC 02/24/17 14:28 WOUND LOOKS GREAT/STILL WEAK PULSES IN THE RIGHT FOOT/ARE STUDIES DONE BUT UNAVAILABLE/WILL PROCEED WITH CTA TO EVALUATE HIS RUNOFF Objective: Vital Signs Temp Pulse Resp BP Pulse Ox 36.4 C 78 18 108/58 L 95 02/24/17 11:56 02/24/17 11:56 02/24/17 11:56 02/24/17 11:56 02/24/17 11:56 Laboratory Results 02/24/17 04:27 02/18/17 16:35 02/23/17 02/24/17 02/25/17 05:59 05:59 05:59 Intake Total 2010 590 250 Output Total 1450 650 Balance 561 -60 250 PT 17.5 SEC (12.0-15.0) H 02/24/17 04:27 INR 1.44 (0.83-1.16) H 02/24/17 04:27 ICD10 Worksheet Patient Problems: Problems Problem Status Onset CAD (coronary artery disease) Acute Preoperative cardiovascular examination Acute
[2017-02-24] MEDS ORDERED: IOPAMIDOL (ISOVUE 370) 100 ML BTL IV ONE (14:54)
[2017-02-24] MEDS: WARFARIN SODIUM 5 MG TAB PO SCH (16:50)
[2017-02-24] MEDS: RAMIPRIL 5 MG CAP PO SCH (21:27)
[2017-02-24] MEDS: METOPROLOL SUCCINATE XR 50 MG TAB PO SCH (21:28)
[2017-02-24] MEDS: ATORVASTATIN CALCIUM 20 MG TAB PO SCH (21:28)
[2017-02-24] MEDS: ASPIRIN 81 MG CHEWABLE TAB PO SCH (21:28)
[2017-02-24] MEDS: LORazepam 1 MG TAB PO SCH (23:41)
[2017-02-25 05:23] LABS: INR 1.39 (0.83-1.16)
[2017-02-25] MEDS: CLOPIDOGREL BISULFATE 75 MG TAB PO SCH (08:44)
[2017-02-25] MEDS: GABAPENTIN 300 MG CAP PO SCH ×2 (08:44→21:02)
[2017-02-25] MEDS: metFORMIN SR 500 MG TAB PO SCH (08:44)
--- NOTE | 2017-02-25 09:16 | SOAPPROG ---
SOAP Progress Note Assessment/Plan: Assessment/Plan: 66 Y M PVD, s/p B fem pop bypasses, and remote aortobifem bypass, admit with occluded R fem pop bypass, s/p surgical thrombectomy, POD#6. Now c re-occluded graft, despite modified heparin gtt, plavix, and coumadin ( subtherapeutic now, 1.39). Dr. Amador to d/w Dr. Dubois in IR. IR versus OR intervention soon. Continue NPO. Seen and examined with Dr. Amador. Also, pressure offloading boots for calcaneal ulcers that he presented to us with. sleeping comfortably, but easily awakes and appropriate no wob abd soft wounds intact ext warm but diminished R pedal pulses. good L pedal pulses. 02/25/17 09:12 Objective: Vital Signs Temp Pulse Resp BP Pulse Ox 36.9 C 64 18 103/52 L 93 02/25/17 08:00 02/25/17 08:00 02/25/17 08:00 02/25/17 08:00 02/25/17 08:00 Laboratory Results 02/24/17 04:27 02/18/17 16:35 02/24/17 02/25/17 02/26/17 05:59 05:59 05:59 Intake Total 590 250 Output Total 650 350 Balance -60 -100 PT 17.0 SEC (12.0-15.0) H 02/25/17 04:33 INR 1.39 (0.83-1.16) H 02/25/17 04:33 ICD10 Worksheet Patient Problems: Problems Problem Status Onset CAD (coronary artery disease) Acute Preoperative cardiovascular examination Acute
[2017-02-25 11:57] LABS: % IMMATURE GRANULYOCYTES 0.4 % (0.0-1.1); ABSOLUTE IMMATURE GRANULOCYTES 0.03 10^3/uL (0.00-0.10); ADD DIFF? NO; ADD MORPH? NO; ADD SCAN? NO; ATYPICAL LYMPHOCYTE FLAG 20 (0-99); FRAGMENT RBC FLAG 0 (0-99); HEMATOCRIT 26.6 % (40.0-51.0); HEMOGLOBIN 8.6 g/dL (13.7-17.5); LEFT SHIFT FLG 0 (0-99); LIPEMIA HEMOLYSIS FLAG 80 (0-99); MEAN CELL HEMOGLOBIN 28.7 pg (27.9-34.1); MEAN CELL HEMOGLOBIN CONCENTR. 32.3 g/dL (32.4-36.7); MEAN CELL VOLUME 88.7 fL (81.5-99.8); MEAN PLATELET VOLUME 10.2 fL (8.7-11.7); PLATELET CLUMPS FLAG 20 (0-99); PLATELET COUNT 241 10^3/uL (150-400); RED CELL DISTRIBUTION WIDTH 14.6 % (11.5-15.2)
[2017-02-25 12:12] LABS: CREATININE 0.6 mg/dL (0.7-1.3); GLOMERULAR FILTRATION RATE > 60
[2017-02-25] MEDS ORDERED: IOPAMIDOL (ISOVUE-300) 100 ML BTL ONE ×2 (15:19→17:35)
[2017-02-25] MEDS ORDERED: HEPARIN 10,000 UNIT/10 ML MDV ONE ×2 (15:24→17:05)
[2017-02-25] MEDS ORDERED: PROPOFOL/EMULSION 500 MG/50 ML BOTTLE IV ONE ×2 (15:26→16:11)
[2017-02-25] MEDS ORDERED: MIDAZOLAM 2 MG/2 ML VIAL ONE (15:31)
[2017-02-25] MEDS ORDERED: fentaNYL 100 MCG/2 ML INJ ONE (15:31)
--- NOTE | 2017-02-25 15:45 | PDANEPAE ---
ANE History of Present Illness embolectomy ANE Past Medical History - Cardiovascular History Hx Hypertension: Yes Hx Arrhythmias: No Hx Chest Pain: No Hx Coronary Artery / Peripheral Vascular Disease: Yes Hx CHF / Valvular Disease: No Hx Palpitations: No Cardiovascular History Comment: HYPERLIPIDEMIA. CARDIAC STENTS - Pulmonary History Hx COPD: Yes Hx Asthma/Reactive Airway Disease: No Hx Recent Upper Respiratory Infection: No Hx Oxygen in Use at Home: No Hx Sleep Apnea: No Sleep Apnea Screening Result - Last Documented: Positive Pulmonary History Comment: CHRONIC BRONCHITIS - Neurologic History Hx Cerebrovascular Accident: No Hx Seizures: No Hx Dementia: No - Endocrine History Hx Diabetes: Yes Endocrine History Comment: ELEVATED GLUCOSE - METFORMIN - Renal History Hx Renal Disorders: No - Liver History Hx Hepatic Disorders: No - Neurological & Psychiatric Hx Hx Neurological and Psychiatric Disorders: No - Cancer History Hx Cancer: No Cancer History Comment: PROSTATE CA - Congenital Disorder History Hx Congenital Disorders: No - GI History Hx Gastrointestinal Disorders: No - Other Health History Other Health History: R leg is "larger than L leg-Dr Amador aware 01/30/17." Some redness noted also. - Chronic Pain History Chronic Pain: Yes (LEG RAMIN PAIN) - Surgical History Prior Surgeries: R femoral popliteal bypass 01-22-17;. AORTA BYPASS 10 YRS AGO. ANGIOPLASTY W/STENTS. PROSTATE RADIOACTIVE IMPLANT. SKIN GRAFTS R LEG ANE Review of Systems Review of Systems: - Exercise capacity Exercise capacity: <4 METS ANE Patient History - Allergies Allergies/Adverse Reactions: No Known Allergies Allergy (Verified 01/31/17 16:49) - Home Medications Home Medications: Aspirin [Aspirin 81mg (*)] 81 mg PO HS 01/22/17 [Last Taken 02/17/17] Atorvastatin Calcium [Lipitor 20 mg (*)] 20 mg PO HS 01/22/17 [Last Taken ] Gabapentin [Neurontin 300 MG (*)] 300 mg PO BID 01/22/17 [Last Taken 02/17/17] Metoprolol Succinate Xr [Toprol Xl 50 mg (*)] 50 mg PO HS 01/22/17 [Last Taken 02/17/17] [place]-3 Fatty Acids [Fish Oil 1000 mg (*)] 1,000 mg PO DAILY 01/22/17 [Last Taken 02/04/17] Ramipril [Altace 5mg (*)] 5 mg PO HS 01/22/17 [Last Taken 02/17/17] metFORMIN HCL [Metformin HCl ER] 1,000 mg PO DAILY 01/22/17 [Last Taken 02/18/17 ] Diphenoxylate HCl/Atrop Sulf [Lomotil Tab (*)] 1 tab PO BID PRN 02/18/17 [Last Taken Unknown] Herbals/Supplements -Info Only 1 ea PO DAILY 02/18/17 [Last Taken Unknown] LORazepam [Ativan (*)] 0.5 mg PO HS 02/18/17 [Last Taken 02/17/17] - NPO status NPO Status: no food or drink >8 hours NPO Since - Liquids (Date): 02/18/17 NPO Since - Liquids (Time): 23:59 NPO Since - Solids (Date): 02/18/17 NPO Since - Solids (Time): 23:59 - Smoking Hx Smoking Status: Former smoker - Family Anes Hx Family Hx Anesthesia Complications: NEG ANE Labs/Vital Signs - Labs Result Diagrams: 02/25/17 11:45 02/25/17 11:45 - Vital Signs Blood Pressure: 116/61 Heart Rate: 65 Respiratory Rate: 12 O2 Sat (%): 93 Height: 177.8 cm Weight: 87.9 kg ANE Physical Exam - Airway Mallampati Score: Class 2 Mouth exam: normal dental/mouth exam - Pulmonary Pulmonary: no respiratory distress - Cardiovascular Cardiovascular: regular rate and rhythym - ASA Status ASA Status: III ANE Anesthesia Plan Anesthesia Plan: MAC
[2017-02-25] MEDS ORDERED: PROPOFOL 200 MG/20 ML VIAL ONE (17:29)
[2017-02-25] MEDS ORDERED: PROTAMINE SULFATE 50 MG/5 ML VIAL IVP ONE (17:29)
--- NOTE | 2017-02-25 17:58 | POSTOPPROG ---
Post Op Note Date of Operation: 02/25/17 Surgeon: Dm Dubois Anesthesia: IV Sedation (Deep IV sedation by Dr. Herman Simmons) Pre-op Diagnosis: Peripheral vascular disease. Occluded right fem-pop bypass graft Post-op Diagnosis: Same Indication: Severe claudication Procedure: Mechanical thrombolysis and stenting of right fem-pop graft Findings: Revascularization of Complete occlusion Inf/Abcess present in the surg proc area at time of surgery?: No EBL: 50-100 Complications: 0
[2017-02-25] MEDS ORDERED: fentaNYL 100 MCG/2 ML INJ IVP PRN (17:59)
[2017-02-25] MEDS ORDERED: NALOXONE HCL 0.4 MG/ML INJ IVP PRN (17:59)
[2017-02-25] MEDS ORDERED: ALBUTEROL 3 ML DEYVIAL IH PRN (17:59)
[2017-02-25 19:02] LABS: % IMMATURE GRANULYOCYTES 0.5 % (0.0-1.1); ABSOLUTE IMMATURE GRANULOCYTES 0.04 10^3/uL (0.00-0.10); ADD DIFF? NO; ADD MORPH? NO; ADD SCAN? NO; ATYPICAL LYMPHOCYTE FLAG 20 (0-99); FRAGMENT RBC FLAG 0 (0-99); HEMATOCRIT 28.4 % (40.0-51.0); HEMOGLOBIN 9.3 g/dL (13.7-17.5); LEFT SHIFT FLG 0 (0-99); LIPEMIA HEMOLYSIS FLAG 80 (0-99); MEAN CELL HEMOGLOBIN 29.1 pg (27.9-34.1); MEAN CELL HEMOGLOBIN CONCENTR. 32.7 g/dL (32.4-36.7); MEAN CELL VOLUME 88.8 fL (81.5-99.8); MEAN PLATELET VOLUME 10.1 fL (8.7-11.7); PLATELET CLUMPS FLAG 0 (0-99); PLATELET COUNT 256 10^3/uL (150-400); RED CELL DISTRIBUTION WIDTH 14.6 % (11.5-15.2)
[2017-02-25 19:21] LABS: INR 1.63 (0.83-1.16); PROTIME(PATIENT) 19.4 SEC (12.0-15.0)
[2017-02-25 19:39] LABS: APTT 220.1 SEC (23.0-38.0)
[2017-02-25] MEDS: ATORVASTATIN CALCIUM 20 MG TAB PO SCH (21:02)
[2017-02-25] MEDS: NS W/ 20 KCl/L 1,000 ML IV SCH (21:02)
[2017-02-25] MEDS: LORazepam 1 MG TAB PO SCH (21:03)
[2017-02-25] MEDS: ASPIRIN 81 MG CHEWABLE TAB PO SCH (21:03)
[2017-02-25] MEDS: METOPROLOL SUCCINATE XR 50 MG TAB PO SCH (21:03)
[2017-02-25] MEDS: RAMIPRIL 5 MG CAP PO SCH (21:48)
[2017-02-26 02:12] LABS: INR 1.46 (0.83-1.16); PROTIME(PATIENT) 17.7 SEC (12.0-15.0)
[2017-02-26] MEDS: HEPARIN 10,000 UNIT/10 ML MDV IVP PRN ×2 (03:05→13:13)
[2017-02-26] MEDS: NS W/ 20 KCl/L 1,000 ML IV SCH ×2 (05:21→16:44)
[2017-02-26] MEDS: GABAPENTIN 300 MG CAP PO SCH ×2 (09:12→20:41)
[2017-02-26] MEDS: CLOPIDOGREL BISULFATE 75 MG TAB PO SCH (09:14)
[2017-02-26] MEDS: metFORMIN SR 500 MG TAB PO SCH (10:02)
[2017-02-26 11:19] LABS: INR 1.43 (0.83-1.16); PROTIME(PATIENT) 17.4 SEC (12.0-15.0)
[2017-02-26] MEDS: HEPARIN/DEXTROSE 500 ML IV SCH (13:13)
--- NOTE | 2017-02-26 13:47 | WOCRNPDOC ---
WOCRN Advanced Assessment Note - Skin Integrity Problem, Advanced Assess Right Lateral Heel Pressure Injury Dressing Type: Allevyn Life, Hydrofera Blue Ready Dressing Description: Intact Exudate Amount: Minimal Exudate Color: Brown, Reddish/Yellow Exudate Characteristic(s): Serosanguinous Integumentary Issue Intervention: Visualized Under Dressing Kayla Wound Tissue: Macerated (immeidately kayla-wound) Kayla Wound Swelling: None Wound Bed Color: Red, Yellow Wound Bed Constitution: Granulation Tissue (95%), Mixed Loose & Adhered Slough/ Eschar (5%) Wound Edges: Well Defined Site Odor: None Pressure Injury Stage: Stage 3 Pressure Injury Present on Admit: Yes Skin Integrity Problem Comment: This was a previously unstageable pressure injury, which was debrided of necrotic tissue at the bedside on Thursday 02/22. Assessment today shows just a pinpoint area of necrosis medially, w/ the remianing wound bed comprised of granulation tissue. Mild maceration kyala-wound r/t old drainage on the skin. Will continue w/ existing tx, and follow up wtih patient on Thursday 03/01. Measurements Before Debridement: 0.8cmx0.9cmx0.1cm Measurements After Debridement: 0.8cmx0.9cmx0.3cm Left Lateral Heel Pressure Injury Dressing Type: Open to Air Exudate Amount: None Exudate Characteristic(s): None Kayla Wound Tissue: Blanching, Intact Kayla Wound Swelling: None Pressure Injury Present on Admit: Yes Skin Integrity Problem Comment: Intact, reabsorbed blister remains stable, unchanged since previous assessment. No fluctuance, erythema, or swelling observed. Will continue tx using off-loading boots. Callous over the top of the wound is intact and should remain in place to keep site protected; anticiapte this wound will resolve slowly, w/out complications as long as pressure is minimized. Report given to mold injectorHAYLEY Gonzalez.
--- NOTE | 2017-02-26 14:24 | SOAPPROG ---
LORENZO Progress Note Assessment/Plan: Assessment/Plan: 66 Y M PVD, s/p B fem pop bypasses, and remote aortobifem bypass, admit with occluded R fem pop bypass, s/p surgical thrombectomy, POD#7. Subsequent c re-occluded graft, despite modified heparin gtt, plavix, and ( subtherapeutic) coumadin. Now s/p IR thrombolysis. Seen by Dr. Amador this am. R pulses diminished despite successful opening of graft by IR. Plan for arterial studies later today vs tomorrow. Also, pressure offloading boots for calcaneal ulcers that he presented to us with. 02/26/17 14:23 Objective: Vital Signs Temp Pulse Resp BP Pulse Ox 36.7 C 81 18 97/53 L 93 02/26/17 11:38 02/26/17 11:38 02/26/17 11:38 02/26/17 11:38 02/26/17 11:38 Laboratory Results 02/25/17 18:35 02/25/17 11:45 02/25/17 02/26/17 02/27/17 05:59 05:59 05:59 Intake Total 250 1121 Output Total 350 1075 1350 Balance -100 46 -1350 PT 17.4 SEC (12.0-15.0) H 02/26/17 10:55 INR 1.43 (0.83-1.16) H 02/26/17 10:55 ICD10 Worksheet Patient Problems: Problems Problem Status Onset CAD (coronary artery disease) Acute Preoperative cardiovascular examination Acute
[2017-02-26] MEDS: WARFARIN SODIUM 5 MG TAB PO SCH (16:46)
[2017-02-26] MEDS: METOPROLOL SUCCINATE XR 50 MG TAB PO SCH (20:39)
[2017-02-26] MEDS: RAMIPRIL 5 MG CAP PO SCH (20:40)
[2017-02-26] MEDS: ATORVASTATIN CALCIUM 20 MG TAB PO SCH (20:41)
[2017-02-26] MEDS: LORazepam 1 MG TAB PO SCH (23:57)
[2017-02-26] MEDS: OXYCODONE/APAP 5/325 TAB PO PRN (23:58)
[2017-02-27] MEDS: HEPARIN/DEXTROSE 500 ML IV SCH ×2 (05:25→23:27)
[2017-02-27 05:36] LABS: INR 1.39 (0.83-1.16)
[2017-02-27] MEDS: NS W/ 20 KCl/L 1,000 ML IV SCH (09:33)
[2017-02-27] MEDS: GABAPENTIN 300 MG CAP PO SCH ×2 (09:56→21:31)
--- NOTE | 2017-02-27 10:04 | SOAPPROG ---
LORENZO Progress Note Assessment/Plan: Assessment/Plan: 66 Y M PVD, s/p B fem pop bypasses, and remote aortobifem bypass, admit with occluded R fem pop bypass, s/p surgical thrombectomy, POD#8. Subsequent c re-occluded graft, despite modified heparin gtt, plavix, and ( subtherapeutic) coumadin. Now s/p IR thrombolysis. Persistently decreased R pedal pulses. Popliteal-graft stenosis seen on US. Probably stent today with IR. Dr. Amador to discuss with IR again today. Also, pressure offloading boots for calcaneal ulcers that he presented to us with. Dispo: pending. 02/27/17 10:03 Objective: Vital Signs Temp Pulse Resp BP Pulse Ox 36.6 C 65 16 92/48 L 94 02/27/17 07:52 02/27/17 07:52 02/27/17 07:52 02/27/17 08:06 02/27/17 07:52 Laboratory Results 02/27/17 04:57 02/25/17 11:45 02/26/17 02/27/17 02/28/17 05:59 05:59 05:59 Intake Total 1121 1600 66 Output Total 1075 4025 925 Balance 90 -0614 -423 PT 17.0 SEC (12.0-15.0) H 02/27/17 04:57 INR 1.39 (0.83-1.16) H 02/27/17 04:57 ICD10 Worksheet Patient Problems: Problems Problem Status Onset CAD (coronary artery disease) Acute Preoperative cardiovascular examination Acute
[2017-02-27] MEDS ORDERED: NALOXONE HCL 0.4 MG/ML INJ ONE (10:07)
[2017-02-27] MEDS ORDERED: FLUMAZENIL 0.5 MG/5 ML MDV IVP ONE (10:07)
[2017-02-27] MEDS ORDERED: MIDAZOLAM 2 MG/2 ML VIAL ONE (10:08)
[2017-02-27] MEDS ORDERED: fentaNYL 100 MCG/2 ML INJ ONE (10:08)
[2017-02-27] MEDS ORDERED: IOPAMIDOL (ISOVUE-300) 100 ML BTL ONE (11:42)
--- NOTE | 2017-02-27 12:21 | POSTOPPROG ---
Post Op Note Date of Operation: 02/27/17 Surgeon: Maine Polo Anesthesia: IV Sedation (fentanyl and versed) Pre-op Diagnosis: PVD Post-op Diagnosis: High grade pop stenosis/dissection Indication: high velocities on US Procedure: Arteriogram with TAIL RIPPER and stent Findings: high grade pop artery dissection with clot Inf/Abcess present in the surg proc area at time of surgery?: No Depth: Superfical (Skin SQ) EBL: Minimal Complications: None
[2017-02-27] MEDS: WARFARIN SODIUM 5 MG TAB PO SCH (15:34)
--- NOTE | 2017-02-27 16:08 | ASMTCMCOM ---
CM Note CM Note Notes: D/c plan of care remains d/c w continued services w [facility]. [facility] [phone] updated. Pt to transition to 2W. Date Signed: 02/27/2017 04:07 PM Electronically Signed By:PETE Renteria
[2017-02-27] MEDS: METOPROLOL SUCCINATE XR 50 MG TAB PO SCH (21:31)
[2017-02-27] MEDS: RAMIPRIL 5 MG CAP PO SCH (21:32)
[2017-02-27] MEDS: ATORVASTATIN CALCIUM 20 MG TAB PO SCH (21:32)
[2017-02-27] MEDS: ASPIRIN 81 MG CHEWABLE TAB PO SCH (21:32)
[2017-02-28] MEDS: OXYCODONE/APAP 5/325 TAB PO PRN ×2 (01:07→22:28)
[2017-02-28] MEDS: LORazepam 1 MG TAB PO SCH ×2 (01:08→20:41)
[2017-02-28 05:35] LABS: INR 1.46 (0.83-1.16); PROTIME(PATIENT) 17.7 SEC (12.0-15.0)
[2017-02-28] MEDS: metFORMIN SR 500 MG TAB PO SCH (08:35)
[2017-02-28] MEDS: GABAPENTIN 300 MG CAP PO SCH ×2 (08:35→20:41)
[2017-02-28] MEDS: CLOPIDOGREL BISULFATE 75 MG TAB PO SCH (08:35)
[2017-02-28] MEDS: WARFARIN SODIUM 5 MG TAB PO SCH (16:29)
--- NOTE | 2017-02-28 18:06 | SOAPPROG ---
SOAP Progress Note Assessment/Plan: Assessment: 66 Y M PVD, s/p B fem pop bypasses, and remote aortobifem bypass, admit with occluded R fem pop bypass, s/p surgical thrombectomy, POD#8. Subsequent c re- occluded graft, despite modified heparin gtt, plavix, and (subtherapeutic) coumadin. Now s/p IR TURNING SANDER TENDER and stent. RLE DP pulses much stronger after IR stenting Cont Plavix and warfarin Ambulate as directed from IR standpoint Regular diet Continue pain control Cont off loading boots for calcaneal ulcers present upon admission to us Dispo: pending Discussed c Dr. Amador S: Pt has no complaints. Pain controlled. O: Pt lying in bed, NAD No increased WOB Full sensation, strength in bilateral LE Dp pulses palpable bilaterally. LLE incisional wound C/D/I with krystle Objective: Vital Signs Temp Pulse Resp BP Pulse Ox 36.8 C 69 16 132/67 H 95 02/28/17 14:50 02/28/17 14:50 02/28/17 14:50 02/28/17 14:50 02/28/17 14:50 Laboratory Results 02/27/17 04:57 02/25/17 11:45 02/27/17 02/28/17 03/01/17 05:59 05:59 05:59 Intake Total 1600 1066 Output Total 4028 9162 Balance -2425 -2208 PT 17.7 SEC (12.0-15.0) H 02/28/17 04:00 INR 1.46 (0.83-1.16) H 02/28/17 04:00 ICD10 Worksheet Patient Problems: Problems Problem Status Onset CAD (coronary artery disease) Acute Preoperative cardiovascular examination Acute
[2017-02-28] MEDS: ATORVASTATIN CALCIUM 20 MG TAB PO SCH (20:41)
[2017-02-28] MEDS: METOPROLOL SUCCINATE XR 50 MG TAB PO SCH (20:41)
[2017-02-28] MEDS: RAMIPRIL 5 MG CAP PO SCH (20:41)
[2017-02-28] MEDS: ASPIRIN 81 MG CHEWABLE TAB PO SCH (20:41)
[2017-03-01] MEDS: HEPARIN/DEXTROSE 500 ML IV SCH ×2 (02:10→16:36)
[2017-03-01] MEDS: OXYCODONE/APAP 5/325 TAB PO PRN (04:03)
[2017-03-01] MEDS ORDERED: WARFARIN SODIUM 5 MG TAB PO ONE ×2 (07:49→16:00)
[2017-03-01] MEDS: CLOPIDOGREL BISULFATE 75 MG TAB PO SCH (08:33)
[2017-03-01] MEDS: GABAPENTIN 300 MG CAP PO SCH ×2 (08:33→20:09)
[2017-03-01] MEDS: metFORMIN SR 500 MG TAB PO SCH (08:33)
--- NOTE | 2017-03-01 09:18 | SOAPPROG ---
LORENZO Progress Note Assessment/Plan: Assessment: 66-YEAR-OLD MALE WITH RECENT A RIGHT COMMON FEMORAL ARTERY ENDARTERECTOMY AND FEMORAL-POPLITEAL BYPASS WITH PROFUNDOPLASTY ON THE RIGHT PRESENTS TODAY WITH DECREASED PEDAL PULSES ON THE RIGHT CTA CONFIRMS OCCLUSION OF HIS FEMORAL POPLITEAL BYPASS WITH ADEQUATE RUNOFF IR DOES NOT FEEL WOULD BE VERY FEASIBLE FOR THROMBOLYSIS WITH HIS RECENT BILATERAL GROIN SURGERY HIS LEGS QUITE VIABLE WITH NO PARTICULAR PROBLEMS EXCEPT THAT HE HAS SOME NEUROPATHIC LESIONS ON THE HEEL ON BOTH FEET ON THE LATERAL ASPECT RISKS AND OPTIONS FULLY DISCUSSED AND HE AGREES WITH ADMISSION FOR THROMBECTOMY Plan: ADMIT FOR FULL HEPARIN THERAPY AND THROMBECTOMY 02/18/17 16:19 02/23/17 17:43 AMBULATING BETTER ROOM BUT PULSES WEAKER ON THE RIGHT/AWAIT ARTERIAL STUDIES/ MAY NEED FOLLOW-UP CTA WOUND OKAY/AFEBRILE/INR SUBTHERAPEUTIC 02/24/17 14:28 WOUND LOOKS GREAT/STILL WEAK PULSES IN THE RIGHT FOOT/ARE STUDIES DONE BUT UNAVAILABLE/WILL PROCEED WITH CTA TO EVALUATE HIS RUNOFF 03/01/17 09:17 GOOD PULSES/ AMBULATING BETTER/ AFEBRILE/ WOUNDS OK/ INR 1.7/ HOME SOON ON COUMADIN AND PLAVIX Objective: Vital Signs Temp Pulse Resp BP Pulse Ox 36.7 C 62 16 113/56 L 95 03/01/17 08:00 03/01/17 08:00 03/01/17 08:00 03/01/17 08:00 03/01/17 08:00 Laboratory Results 03/01/17 04:03 02/25/17 11:45 02/28/17 03/01/17 03/02/17 05:59 05:59 05:59 Intake Total 1066 300 Output Total 3275 1630 Balance -2209 -1330 PT 17.7 SEC (12.0-15.0) H 02/28/17 04:00 INR 1.46 (0.83-1.16) H 02/28/17 04:00 ICD10 Worksheet Patient Problems: Problems Problem Status Onset CAD (coronary artery disease) Acute Preoperative cardiovascular examination Acute
[2017-03-01] MEDS ORDERED: NITROGLYCERIN/D5W 50 MG/250 ML BOTTLE IV ONE (10:31)
--- NOTE | 2017-03-01 15:34 | WOCRNPDOC ---
WOCRN Advanced Assessment Note - Skin Integrity Problem, Advanced Assess Right Lateral Heel Pressure Injury Dressing Type: Allevyn Life, Hydrofera Blue Ready Dressing Description: Intact Exudate Amount: Minimal Exudate Color: Reddish/Yellow Exudate Characteristic(s): Serosanguinous Integumentary Issue Intervention: Dressing Changed, Dressing Initialed & Dated Kayla Wound Tissue: Macerated, Calloused Kayla Wound Swelling: None Wound Bed Color: Red, Yellow Wound Bed Constitution: Granulation Tissue, Adhered Slough (pinpoint in medial aspect) Wound Edges: Well Defined Site Odor: None Pressure Injury Stage: Stage 3 Pressure Injury Present on Admit: Yes Pulse Location & Description: DP +1 bilaterally Extremity Temperature: Warm Skin Integrity Problem Comment: Stage 3 pressure injury w/ 98% beefy granulating tissue throughout, and one pinpoint area of adhered slough remianing. Kayla-wound skin still slightly macerated, so dressing changes increased to every 2 days instead of every 3. Trimmed loose callous from kayla- wound, and reapplied Hydrofera Blue and Allevyn per order. Patient advised to continue w/ off-loading heel boots after discharge, and to [facility] w/in the next 2-3 weeks. Left Lateral Heel Pressure Injury Dressing Type: Open to Air Exudate Amount: None Exudate Characteristic(s): None Kayla Wound Tissue: Dry, Calloused Kayla Wound Swelling: None Pressure Injury Stage: Stage 2 Pressure Injury Present on Admit: Yes (Documented in H&P) Skin Integrity Problem Comment: Dry, healing blister-like wound over L heel w/ no exudate, swelling, or fluctuance observed. This wound continues to be stable w/ no changes since initial assessment. Recommend ongoing off-loading at home and follow up assessment w/ [facility] w/in 2-3 weeks of DC.
[2017-03-01] MEDS: RAMIPRIL 5 MG CAP PO SCH (20:08)
[2017-03-01] MEDS: ATORVASTATIN CALCIUM 20 MG TAB PO SCH (20:08)
[2017-03-01] MEDS: ASPIRIN 81 MG CHEWABLE TAB PO SCH (20:08)
[2017-03-01] MEDS: METOPROLOL SUCCINATE XR 50 MG TAB PO SCH (20:08)
[2017-03-01] MEDS: LORazepam 1 MG TAB PO SCH (22:30)
[2017-03-02 01:46] LABS: INR 1.55 (0.83-1.16); PROTIME(PATIENT) 18.6 SEC (12.0-15.0)
[2017-03-02] MEDS: HEPARIN/DEXTROSE 500 ML IV SCH (08:46)
[2017-03-02] MEDS: CLOPIDOGREL BISULFATE 75 MG TAB PO SCH (08:46)
[2017-03-02] MEDS: GABAPENTIN 300 MG CAP PO SCH ×2 (08:46→21:35)
[2017-03-02] MEDS: metFORMIN SR 500 MG TAB PO SCH (08:46)
--- NOTE | 2017-03-02 10:32 | SOAPPROG ---
SOAP Progress Note Assessment/Plan: Assessment: 66-year-old male status post right lower extremity the clot for clotted fem-pop bypass INR is still subtherapeutic at 1.5 today. Needs therapeutic INR greater than 2 to go home, hopefully tomorrow. Plan: 03/02/17 10:32 Objective: Vital Signs Temp Pulse Resp BP Pulse Ox 37.1 C 63 16 110/57 L 97 03/02/17 07:31 03/02/17 07:31 03/02/17 07:31 03/02/17 07:31 03/02/17 07:31 Laboratory Results 03/01/17 04:03 02/25/17 11:45 03/01/17 03/02/17 03/03/17 05:59 05:59 05:59 Intake Total 300 300 Output Total 1630 1775 Balance -1330 -1475 PT 18.6 SEC (12.0-15.0) H 03/02/17 01:30 INR 1.55 (0.83-1.16) H 03/02/17 01:30 ICD10 Worksheet Patient Problems: Problems Problem Status Onset CAD (coronary artery disease) Acute Preoperative cardiovascular examination Acute
--- NOTE | 2017-03-02 15:32 | ASMTCMCOM ---
CM Note CM Note Notes: Reviewed chart re: d/c poc, pt's progress. INR subtherapeutic today; needs to be greater than 2 for discharge. Pt will [facility] home w/ [facility] when medically stable. CM to contact [facility] ([facility]) when pt ready for d/c [phone]. CM will cont to follow. Date Signed: 03/02/2017 03:32 PM Electronically Signed By:Judith Lopez RN
[2017-03-02] MEDS ORDERED: WARFARIN SODIUM 7.5 MG TAB PO ONE (16:45)
[2017-03-02 19:06] VITALS: RESP 16
[2017-03-02] MEDS: ASPIRIN 81 MG CHEWABLE TAB PO SCH (21:35)
[2017-03-02] MEDS: RAMIPRIL 5 MG CAP PO SCH (21:35)
[2017-03-02] MEDS: METOPROLOL SUCCINATE XR 50 MG TAB PO SCH (21:35)
[2017-03-02] MEDS: ATORVASTATIN CALCIUM 20 MG TAB PO SCH (21:35)
[2017-03-02] MEDS: LORazepam 1 MG TAB PO SCH (22:45)
[2017-03-02] MEDS ORDERED: oxyCODONE IR 5 MG TAB PO PRN (23:10)
[2017-03-03] MEDS: HEPARIN/DEXTROSE 500 ML IV SCH (01:22)
[2017-03-03 05:23] VITALS: O2SAT 95
[2017-03-03 05:51] LABS: INR 1.89 (0.83-1.16); PROTIME(PATIENT) 21.8 SEC (12.0-15.0)
[2017-03-03 07:26] VITALS: BP 108/54; PULSE 67; TEMP 98.8
[2017-03-03] MEDS: CLOPIDOGREL BISULFATE 75 MG TAB PO SCH (08:33)
[2017-03-03] MEDS: GABAPENTIN 300 MG CAP PO SCH (08:33)
[2017-03-03] MEDS: metFORMIN SR 500 MG TAB PO SCH (08:33)
--- NOTE | 2017-03-03 09:21 | PDDCSUM ---
Discharge Summary Discharge Summary: DISCHARGE SUMMARY Date of Admission February 18 Date of Discharge March 03 DISCHARGE DIAGNOSES -clotted off right fem-pop bypass HOSPITAL COURSE The patient was taken to the operating room on the for a clotted fem-pop bypass on the right. Subsequently taken back to the interventional radiology suite on the for persistent clot. Since that time, his graft has been open , he was started on Plavix and Coumadin DISCHARGE MEDICATIONS Plavix, Coumadin DISPOSITION FOLLOW UP Follow up with me in the office in 10-14 days for a general post-operative visit
--- NOTE | 2017-03-03 12:52 | PDIAF ---
- Diagnosis Diagnosis: occluded fem pop bypass Code Status: Full Code - Medication Management Discharge Medications: Medications to Continue on Transfer Aspirin [Aspirin 81mg (*)] 81 mg PO HS 01/22/17 [Last Taken 02/17/17] Atorvastatin Calcium [Lipitor 20 mg (*)] 20 mg PO HS 01/22/17 [Last Taken ] Gabapentin [Neurontin 300 MG (*)] 300 mg PO BID 01/22/17 [Last Taken 02/17/17] Metoprolol Succinate Xr [Toprol Xl 50 mg (*)] 50 mg PO HS 01/22/17 [Last Taken 02/17/17] [place]-3 Fatty Acids [Fish Oil 1000 mg (*)] 1,000 mg PO DAILY 01/22/17 [Last Taken 02/04/17] Ramipril [Altace 5mg (*)] 5 mg PO HS 01/22/17 [Last Taken 02/17/17] metFORMIN HCL [Metformin HCl ER] 1,000 mg PO DAILY 01/22/17 [Last Taken 02/18/17 ] Diphenoxylate HCl/Atrop Sulf [Lomotil Tab (*)] 1 tab PO BID PRN 02/18/17 [Last Taken Unknown] Herbals/Supplements -Info Only 1 ea PO DAILY 02/18/17 [Last Taken Unknown] LORazepam [Ativan (*)] 0.5 mg PO HS 02/18/17 [Last Taken 02/17/17] Clopidogrel Bisulfate [Plavix (*)] 75 mg PO DAILY #30 tab 03/03/17 [Last Taken Unknown] Warfarin Sodium [Coumadin 5MG (*)] 5 mg PO DAILY #30 tab 03/03/17 [Last Taken Unknown] oxyCODONE IR [Oxycodone Ir (*)] 5 - 10 mg PO Q4 PRN #30 tab 03/03/17 [Last Taken Unknown] Discharge Medications: Refer to the Discharge Home Medication list for PRN reason. - Orders Services needed: Home Care, Registered Nurse, Physical Therapy, Occupational Therapy Home Care Face to Face: I certify that this patient was under my care and that I had the required [id number] encounter meeting the encounter requirements on the discharge day. My findings support the fact that the patient is homebound as defined in Home Care Face to Face Continued: CMS Chapter 7 Medicare Benefits Manual 30.1.1 , The condition of the patient is such that there exists a normal inability to leave home and consequently, leaving home would require a considerable and taxing effort. Diet Recommendation: no restrictions on diet Diet Texture: Regular Texture Diet - Follow Up Care Current Providers and Referrals: Desi Pope MD [Primary Care Provider] - Dm Amador MD [Medical Doctor] - follow up in 1 week
--- NOTE | 2017-03-03 17:06 | ASMTCMCOM ---
CM Note CM Note Notes: Reviewed chart re: d/c poc, pt's progress. Pt to discharge home w/ [facility] today. Call placed to [facility] liaison [phone]; alerted of pt's discharge; per [facility] able to accept. Discharge orders/paperwork manually faxed to [phone] at [facility]'s request. [facility] will resume services (RN/PT/OT) starting 03/04/17. Update provided to pt, HAYLEY Santana, Dr. Topete. IM signed. Pt to f/u as directed. CM avail for any further issues or concerns. Date Signed: 03/03/2017 05:05 PM Electronically Signed By:Judith Lopez RN
--- NOTE | 2017-03-03 17:11 | ASDISCHSUM ---
Discharge Information Plan Status:Home with Home Health Medically Cleared to Leave:03/03/2017 Discharge Date:03/03/2017 05:09 PM CM D/C Disposition:Home Health Service ADT D/C Disposition:[id number] Projected Discharge Date:02/28/2017 12:00 AM Transportation at D/C:Friend Discharge Delay Reason: Follow-Up Date:02/28/2017 12:00 AM Discharge Slot:2 - 12:01 pm - 18:00 pm Final Diagnosis:s/p RLE clotted fem-pop bypass Placement Information Referral Type:*Home Health Care Services Referral ID:[id number] Provider Name:[facility] ([facility] [place]) Address 1:[address] [place] [address] Address 2: City:[place] Selection Factors:Patient/Family Choice State:[place] Patient Contact Information Contact Name:ANTONIO Relationship:Friend Address: Work Phone: City: [facility] [place] Phone: State/Zip Code: Email: Financial Information Financial Class: Primary Plan Desc:MEDICARE INPATIENT Primary Plan Number:[id number] Secondary Plan Desc:[employer]/MDR SUPPLEMENT Secondary Plan Number:[id number] Assessment Information [facility] Progress Note CM Note CM Note Notes: CM spoke w/ HAYLEY Sampson. Pt is a 66 y/o male w/ a hx of right common femoral artery endarterectomy with right profundoplasty and right femoral popliteal by pass on 01/22/17, and a left common femoral and profunda endarterectomy with profundoplasty and femoral-popliteal bypass on 02/05/17. Pt will be undergo surgical intervention with thrombectomy today and will most likely be transferred to PCU afterwards. Pts needs are TBD. CM to follow once out of surgery. Date Signed: 02/19/2017 10:05 AM Electronically Signed By:MARIBEL Foreman [facility] CM Progress Note CM Note CM Note Notes: Spoke w/pt, he is [facility]/ [facility], get RN/PT/OTJUWAN w/f. Date Signed: 02/20/2017 02:28 PM Electronically Signed By:Lissette Valle RN [facility] CM Progress Note CM Note CM Note Notes: Spoke with patient about discharge plan, he is still in agreement with home with home care (PT/OT/RN). Sent notes to [facility]. Dr Amador still awaiting arterial studies, says patient may need f/u CTA. Patient requested to work with PT while inpatient, HAYLEY Cai to order PT eval. CM to follow. Date Signed: 02/24/2017 10:12 AM Electronically Signed By:Cat Menjivar RN [facility] CM Progress Note CM Note CM Note Notes: D/c plan of care remains d/c w continued services w [facility] . [facility] [phone] updated. Pt to transition to 2W. Date Signed: 02/27/2017 04:07 PM Electronically Signed By:PETE Renteria [facility] CM Progress Note CM Note CM Note Notes: Reviewed chart re: d/c poc, pt's progress. INR subtherapeutic today; needs to be greater than 2 for discharge. Pt will discharge home w/ [facility] when medically stable. CM to contact Kon[facility] ([facility]) when pt ready for d/c [phone]. CM will cont to follow. Date Signed: 03/02/2017 03:32 PM Electronically Signed By:Judith Lopez RN [facility] CM Progress Note CM Note CM Note Notes: Reviewed chart re: d/c poc, pt's progress. Pt to discharge home w/ HH today. Call placed to [facility], [facility] liaison [phone]; alerted of pt's discharge; per [facility] able to accept. Discharge orders/paperwork manually faxed to [phone] at [facility]'s request. [facility] will resume services (RN/PT/OT) starting 03/04/17. Update provided to pt, HAYLEY Santana, Dr. Topete. IM signed. Pt to f/u as directed. CM avail for any further issues or concerns. Date Signed: 03/03/2017 05:05 PM Electronically Signed By:Judith Lopez RN Intervention Information Intervention Type:*KHAN-Signed Date of Service:02/19/2017 09:44 AM Patient Type:Observation Staff Member:Jacki Ralph Hours: Discipline: Severity: Comment:
== END 2017-03-03 17:09 | disposition home health service (06) | DRG 270 ==
LOC: F3E 15:24 → OBSVTOIN 02-19 15:52 → F2N 02-25 16:00 → F3N 02-25 22:45 → F2W 02-27 18:22
PROVIDERS: ADMIT Surgery; ATTEND Surgery
PROC: 04CM3ZZ Extirpation of Matter from Right Popliteal Artery, Percutaneous Approach (ICD-10-PCS; principal; 2017-02-19 16:30)
PROC: 047K3DZ Dilation of Right Femoral Artery with Intraluminal Device, Percutaneous Approach (ICD-10-PCS; 2017-02-25)
PROC: 04CY3ZZ Extirpation of Matter from Lower Artery, Percutaneous Approach (ICD-10-PCS; 2017-02-25)
PROC: 047K3ZZ Dilation of Right Femoral Artery, Percutaneous Approach (ICD-10-PCS; 2017-02-27)
DX: T82.818A Embolism due to vascular prosthetic devices, implants and grafts, initial encounter (principal); L89.613 Pressure ulcer of right heel, stage 3; I25.10 Atherosclerotic heart disease of native coronary artery without angina pectoris; I10 Essential (primary) hypertension; L89.622 Pressure ulcer of left heel, stage 2; E11.9 Type 2 diabetes mellitus without complications; J40 Bronchitis, not specified as acute or chronic; E78.5 Hyperlipidemia, unspecified; Z85.46 Personal history of malignant neoplasm of prostate; Z87.891 Personal history of nicotine dependence; Z79.84 Long term (current) use of oral hypoglycemic drugs; Z95.5 Presence of coronary angioplasty implant and graft
CPT/HCPCS: 85520-90; 97116-GP; 97162-GP; C1725; C1757; C1768; C1769; C1876; C1894; G0378; G8978-GP-CJ; G8979-GP-CI; J0690; J1170; J1644; J2250; J2310; J2405; J2440; J2704; J2720; J2765; J2997; J3010; Q9961; Q9967

== ENCOUNTER → 2017-02-18 | Outpatient (CLI) | payer OTHER, MEDICARE ==
[~2017-02-18] MED LIST changes: -ASPIRIN EC 325 MG TAB PO ONE; -ATROPINE SULFATE 1 MG/10 ML SYR IVP PRN; -DIAZEPAM 5 MG TAB ONE; -DIAZEPAM 5 MG TAB PO ONE; -FAMOTIDINE 20 MG TAB ONE; -FAMOTIDINE 20 MG TAB PO ONE; +IOPAMIDOL (ISOVUE 370) 100 ML BTL IV ONE; -IOPAMIDOL (ISOVUE-370) 150 ML BTL IV ONE; -LIDOCAINE 1% 300 MG/30 ML SDV ONE; +METOCLOPRAMIDE 10 MG/2 ML VIAL ONE; -NITROGLYCERIN 0.4 MG BTL SL PRN; -NS 1,000 ML IV ONE; +ONDANSETRON 4 MG/2 ML VIAL ONE; +PROPOFOL 200 MG/20 ML VIAL ONE; +ROCURONIUM 50 MG/5 ML VIAL ONE; -VERAPAMIL 5 MG/2 ML VIAL ONE; +ceFAZolin 1 GM VIAL ONE; -diphenhydrAMINE 25 MG CAP PO ONE
== END ==
LOC: FIMAGING 11:27
PROVIDERS: ATTEND Surgery
DX: T82.868A Thrombosis due to vascular prosthetic devices, implants and grafts, initial encounter (principal); T82.858A Stenosis of other vascular prosthetic devices, implants and grafts, initial encounter; I71.4 Abdominal aortic aneurysm, without rupture; I77.1 Stricture of artery; I72.4 Aneurysm of artery of lower extremity; I70.203 Unspecified atherosclerosis of native arteries of extremities, bilateral legs; I70.1 Atherosclerosis of renal artery; N28.1 Cyst of kidney, acquired; K40.90 Unilateral inguinal hernia, without obstruction or gangrene, not specified as recurrent
CPT/HCPCS: 75635; Q9967; J0690; J1644; J2250; J2405; J2704; J2765; J3010

== ENCOUNTER 2018-05-16 06:46 | Inpatient (IN) | payer OTHER, MEDICARE ==
[2018-05-16] MEDS ORDERED: FAMOTIDINE 20 MG TAB PO ONE (06:52)
[2018-05-16] MEDS ORDERED: NS 1,000 ML IV ONE (06:52)
[2018-05-16] MEDS ORDERED: diphenhydrAMINE 25 MG CAP PO ONE ×2 (06:52→07:27)
[2018-05-16] MEDS ORDERED: DIAZEPAM 5 MG TAB PO ONE (06:52)
[2018-05-16] MEDS ORDERED: ASPIRIN EC 325 MG TAB PO ONE ×2 (06:52→07:28)
[2018-05-16] MEDS ORDERED: FAMOTIDINE 20 MG TAB ONE (07:28)
[2018-05-16] MEDS ORDERED: DIAZEPAM 5 MG TAB ONE (07:28)
[2018-05-16 07:29] LABS: PLATELET COUNT 370 10^3/uL (150-400)
[2018-05-16 07:37] LABS: INR 1.39 (0.83-1.16); PROTIME(PATIENT) 17.2 SEC (12.0-15.0)
[2018-05-16] MEDS ORDERED: LIDOCAINE 1% 300 MG/30 ML SDV ONE (07:37)
[2018-05-16] MEDS ORDERED: fentaNYL 100 MCG/2 ML INJ ONE (07:38)
[2018-05-16] MEDS ORDERED: VERAPAMIL 5 MG/2 ML VIAL ONE (07:38)
[2018-05-16] MEDS ORDERED: HEPARIN 10,000 UNIT/10 ML MDV (1,000 UNIT/ML) ONE (07:38)
[2018-05-16] MEDS ORDERED: MIDAZOLAM 2 MG/2 ML VIAL ONE (07:38)
[2018-05-16] MEDS ORDERED: IOPAMIDOL (ISOVUE-370) 150 ML BTL IV ONE (07:39)
--- NOTE | 2018-05-16 08:26 | PDHPUP ---
History & Physical Update H&P update statement: This history and physical update is based on an assessment of the patient which was completed after admission or registration (within 24 hours), but prior to the surgery/procedure. H&P update: H&P reviewed & patient examined (Severe anemia. plan for at leasr one unit PRBC with unstable angina.), no change in patient's condition since H& P completed
--- NOTE | 2018-05-16 08:27 | PDPROPOC ---
Sedation Plan of Care Sedation Plan of Care: vital signs stable, mental status noted, patient educated of risks, benefits, alternatives, patient can tolerate sedation ASA Classification: ASA 2 Planned drugs: fentanyl, midazolam Mallampati Score: Class 1 Mallampati Reference Image: Patient passed 3-3-2 rule?: Yes
[2018-05-16] MEDS ORDERED: CLOPIDOGREL BISULFATE 75 MG TAB PO ONE (08:30)
[2018-05-16] MEDS ORDERED: ACETAMINOPHEN 325 MG TAB PO ONE (09:29)
--- NOTE | 2018-05-16 09:33 | PDDXCAT ---
Diagnostic Cath Note - . Date: 05/16/18 Candy Starch Mold Printer: Vazquez Indication: CCC Class III and IV angina on medical treatment - Procedure Access: right wrist Procedure: left heart catheterization, coronary angiography, left ventriculogram - Materials Left Heart Cath size: 5F Left Heart Cath materials: JL3.5, pigtail - Findings-Left Heart Catheterization LM: Unobstructed LAD: 100% occlusion with collaterals LCX: Unobstructed RCA: 100% occluded from previous injections. EDP: 15 mm of mercury LVEF: 64% Wall motion: normal Complications: None Estimated blood loss: <50ml Closure method: TR Band Assessment: Severe anemia. Critical coronary disease with complete occlusion of the proximal right coronary artery, proximal LAD with well collateralized distal targets. Preserved LV systolic function with normal filling pressures Plan: Transfusion light of hemoglobin of 7 g and progressive unstable angina. Revascularization once clinically stable, refer coronary artery bypass grafting. Evaluation for hemoptysis/GI blood loss. Continued aggressive medical therapy. Hold triple anticoagulation at this point. Patient Problems: Problems Problem Status Onset Preoperative cardiovascular examination Acute CAD (coronary artery disease) Acute
--- NOTE | 2018-05-16 09:35 | SOAPPROG ---
SOAP Progress Note Assessment/Plan: Assessment: Problem list: 1. Crescendo angina 2. Occluded RCA, lad with preserved LV systolic function history of PCI 3. Hyperlipidemia 4. Diabetes 5. Acute anemia with hemoglobin of 7. 6. History of tobacco abuse with intermittent hemoptysis. 7. History of alcoholism 8. Peripheral vascular disease status post peripheral bypass. Patient will be admitted with crescendo symptoms for transfusion. Evaluation for blood loss. Evaluation for revascularization. 05/16/18 09:33 Subjective: See H&P. Several day history of progressive exertional chest pain beginning with an episode of sharp chest pain and nausea during intercourse. History of intermittent hemoptysis. No history of coffee-ground emesis or black tarry stools. Cardiac review of systems is negative for shortness of breath, PND, orthopnea, palpitations, syncope, near syncope, edema. Objective: Laboratory Results 05/16/18 07:18 05/16/18 07:18 PT 17.2 SEC (12.0-15.0) H 05/16/18 07:18 INR 1.39 (0.83-1.16) H 05/16/18 07:18 Physical Exam - Physical Exam General Appearance: alert, no apparent distress Neck: supple Respiratory: lungs clear Cardiac/Chest: regular rate, rhythm Abdomen: non-tender ICD10 Worksheet Patient Problems: Problems Problem Status Onset CAD (coronary artery disease) Acute Preoperative cardiovascular examination Acute
--- NOTE | 2018-05-16 11:28 | PDMN ---
Medical Necessity Medical necessity: Pt meets IP criteria as of 05/16/2018 per and MCG M-40 ( Angina); est los > 2mn for ongoing tx and management of unstable crescendo angina and acute anemia; requiring heart catheterization, blood transfusion, serial labs, further work up and monitoring.
[2018-05-16] MEDS: GABAPENTIN 300 MG CAP PO SCH ×2 (15:41→21:13)
[2018-05-16] MEDS: ATORVASTATIN CALCIUM 20 MG TAB PO SCH (21:12)
[2018-05-16] MEDS: METOPROLOL SUCCINATE XR 50 MG TAB PO SCH (21:12)
[2018-05-16] MEDS: RAMIPRIL 5 MG CAP PO SCH (21:12)
[2018-05-16] MEDS: ASPIRIN 81 MG CHEWABLE TAB PO SCH (21:13)
[2018-05-17 04:39] LABS: PLATELET COUNT 320 10^3/uL (150-400)
[2018-05-17] MEDS: GABAPENTIN 300 MG CAP PO SCH ×3 (08:41→20:42)
--- NOTE | 2018-05-17 12:12 | PDCARPN ---
Cardiology Progress Note Assessment/Plan: Assessment/Plan: 67-year-old male with significant coronary disease admitted with crescendo angina. Found to have totally occluded LAD and known total occlusion of the RCA. Will ultimately need bypass. Other issues include acute on chronic anemia with lab suggestive of iron deficiency; peripheral vascular disease with history of AAA and bilateral fem-pop bypass grafting that was complicated by thrombotic occlusion. Therefore, up until this admission he had been on warfarin plus dual antiplatelet therapy. Chest CT this admission also shows increase in size of 1 of his pulmonary nodules as well as some other abnormalities in the parenchyma. 1. Coronary disease: He has crescendo angina based on progressive LAD disease with reduction and collateral flow to the RCA territory coupled with anemia. He is not having rest angina. Will ultimately need revascularization with bypass once his noncardiac medical issues have been further evaluated and stabilized. Continue medical therapy with beta-stefania, DENISHA-inhibitor, statin and aspirin. Plavix on hold. 2. Anemia: He did require a single unit this admission. No active bleeding. I suspect he is having slow loss from a GI source. He is also having hemoptysis. Appreciate internal medicine consultation. It looks like his last colonoscopy was in 2013. He may need GI evaluation as well as pulmonary evaluation. As mentioned, warfarin and Plavix are on hold. 3. Abnormal chest CT: Several pulmonary nodules and 1 increasing in size. Hemoptysis. Will likely need pulmonary consultation. As mentioned, he has seen Dr. Kulwinder Sims in the past. Bronchoscopy in 2009 was without malignant cells. Is a former smoker. 4. Peripheral vascular disease: He has an abdominal aortic aneurysm 4.4 cm and has had bilateral fem-pop bypass grafting. This is followed by Dr. Amador. Last year he had thrombotic occlusion of 1 of his bypass grafts and this is the reason he was previously on warfarin. He is not having any claudication symptoms. Extremities are warm. 5. Diabetes: This is listed on his problem list. Hemoglobin A1c was 5.6 in July of this year. The patient reports he does not think he has diabetes. Metformin on hold for 72 hr post catheterization. 6. Hypertension: Currently well controlled. Greater than 35 min spent in chart review and direct patient care as well as discussion with Dr. Guerrero 05/17/18 12:18 Subjective: [place] denies angina at rest. No dyspnea. No pain at the site of his right radial arteriotomy. He has not noticed dark stools or bloody stools over the past several weeks to months. He does admit to occasional hemoptysis. He reports that a few years ago, after he quit smoking, he was having hemoptysis and did have an evaluation with Dr. Kulwinder Sims. There is a pathology report from 22/03 from bronchoscopy showing no malignant cells. Reviewed/Discussed With: hospitalist, multidisciplinary team Objective: Vital Signs (8 Hrs) Temp Pulse Resp BP Pulse Ox 05/17/18 10:56 36.6 C 63 20 107/45 L 86 L 05/17/18 08:00 36.6 C 65 17 107/56 L 90 L 05/17/18 05:19 36.7 C 58 L 16 110/56 L 95 Intake/Output (24 Hrs) 05/16/18 05/17/18 05/18/18 05:59 05:59 05:59 Intake Total 1585 Output Total 3100 500 Balance -1515 -500 Intake: Oral (ml) 1140 IV Intake (ml) 125 Whole Blood (ml) 320 Output: Urine (ml) 3100 500 Toilet 700 500 Urinal 2400 Other: Weight 95.3 kg Number of Voids Urinal 1 NAD, pale JVP < 10 RRR no m/r/g Occ insp wheeze. No rales No edema Right wrist: no hematoma or significant ecchymoses Result Diagrams: 05/17/18 04:13 05/16/18 07:18 EKG: Sinus rhythm. Inferior T-wave inversion. Telemetry: Sinus rhythm with occasional PVCs ICD10 Worksheet Patient Problems: Problems Problem Status Onset CAD (coronary artery disease) Acute Preoperative cardiovascular examination Acute
--- NOTE | 2018-05-17 15:04 | PDHOSCONS ---
History and Physical - Chief Complaint consult for anemia, CT findings - History of Present Illness Mr Esteban is a 67yo M who underwent diagnostic coronary angiography with Dr Shukla yesterday for progressive angina despite medical treatment. LHC showed critical coronary disease with complete occlusion of proximal RCA, proximal LAD with collaterals. He has a preserved LV systolic function. Cardiology is recommending CABG. Medicine has been consulted for help with management of this patient's anemia and abnormal chest CT findings. His labs on admission showed anemia with a hemoglobin of 7.2 which was down from 9.3 in February 2017. He has chronically been mildly anemic but has been on a slow down-trend since mid-2016. This has not been evaluated. He has been on warfarin, aspirin, and clopidogrel since 02/2017. He reports mild nosebleeds almost every day. He has not had to seek medical attention for these. He denies ling blood in his stools but does think he's possibly had some darker/black stools over the last year or so. His last colonoscopy was in 2013 with a benign polyp. He also reports having scant hemoptysis rather chronically. This initially began about 10 years ago. He underwent bronchoscopy by Kulwinder Sims in 2009 with biopsies negative for malignant cells. He does have chronic bronchitis. Of note, he was transfused 1 unit of PRBCs this admission with an appropriate response. A CT of his chest on admission showed thickening and occlusion in the bilateral lower lobes, left>right. It also showed an increase in size of lingular pulmonary nodule when compared to 02/2017 images. History Information - Allergies/Home Medication List Allergies/Adverse Reactions: No Known Allergies Allergy (Verified 01/31/17 16:49) Home Medications: Aspirin [Aspirin 81mg (*)] 81 mg PO HS 01/22/17 [Last Taken 05/15/18 21:00] Atorvastatin Calcium [Lipitor 20 mg (*)] 20 mg PO HS 01/22/17 [Last Taken 21:00] Gabapentin [Neurontin 300 MG (*)] 300 mg PO TID 01/22/17 [Last Taken 05/15/18 21 :00] Metoprolol Succinate Xr [Toprol Xl 50 mg (*)] 50 mg PO HS 01/22/17 [Last Taken 05/15/18 21:00] [place]-3 Fatty Acids [Fish Oil 1000 mg (*)] 1,000 mg PO DAILY 01/22/17 [Last Taken 02/04/17] Ramipril [Altace 5mg (*)] 5 mg PO HS 01/22/17 [Last Taken 05/15/18 21:00] metFORMIN HCL [Metformin HCl ER] 1,000 mg PO DAILY 01/22/17 [Last Taken 08:00] Herbals/Supplements -Info Only 1 ea PO DAILY 02/18/17 [Last Taken Unknown] Loperamide HCl [Imodium 2 mg (*)] 2 mg PO BID PRN 05/15/18 [Last Taken Unknown] Warfarin Sodium [Coumadin 5MG (*)] 5 mg PO TUTH@16 05/15/18 [Last Taken 18:00] Warfarin Sodium [Coumadin 5MG (*)] 7.5 mg PO SUMOWEFRSA@16 05/15/18 [Last Taken 05/12/18 18:00] I have personally reviewed and updated: family history, medical history, social history, surgical history - Past Medical History Additional medical history: CAD, peripheral vascular disease s/p remote aortobifemoral bypass complicated by occlusive thrombus s/p endarterectomy and fem-pop bypass; remote prostate cancer, HTN, hepatitic C s/p treatment, peripheral neuropathy, type 2 diabetes, spinal osteoarthritis, chronic bronchitis, h/o diverticulitis - Surgical History Additional surgical history: several revasularization procedures as described above - Family History Positive for: non-pertinent - Social History Smoking Status: Former smoker Alcohol Use: None Drug Use: None Review of Systems Review of Systems: ROS: 10pt was reviewed & negative except for what was stated in HPI & below Physical Exam Physical Exam: Temp Pulse Resp BP Pulse Ox 36.6 C 63 20 107/45 L 86 L 05/17/18 10:56 05/17/18 10:56 05/17/18 10:56 05/17/18 10:56 05/17/18 10:56 O2 (L/minute) 1 Constitutional: no apparent distress, not in pain, obese Eyes: PERRL, anicteric sclera, EOMI Ears, Nose, Mouth, Throat: moist mucous membranes, hearing normal, ears appear normal, no oral mucosal ulcers Cardiovascular: regular rate and rhythym, no murmur, rub, or gallop, No JVD, No edema Respiratory: no respiratory distress, no rales or rhonchi, clear to auscultation Gastrointestinal: normoactive bowel sounds, soft, non-tender abdomen, no palpable masses Genitourinary: no bladder fullness, no bladder tenderness Skin: warm, normal color, no rashes or abrasions, no fluctuance, no induration, No mottled Musculoskeletal: full muscle strength, no muscle tenderness, normal joint ROM, no joint effusions Neurologic: AAOx3 Psychiatric: interacting appropriately, not anxious, not encephalopathic, thought process linear Lab Data & Imaging Review 05/17/18 04:13 05/16/18 07:18 WBC 7.30 10^3/uL (3.80-9.50) 05/17/18 04:13 RBC 3.47 10^6/uL (4.40-6.38) L 05/17/18 04:13 Hgb 8.1 g/dL (13.7-17.5) L 05/17/18 04:13 Hct 27.4 % (40.0-51.0) L 05/17/18 04:13 MCV 79.0 fL (81.5-99.8) L 05/17/18 04:13 MCH 23.3 pg (27.9-34.1) L 05/17/18 04:13 MCHC 29.6 g/dL (32.4-36.7) L 05/17/18 04:13 RDW 16.7 % (11.5-15.2) H 05/17/18 04:13 Plt Count 320 10^3/uL (150-400) 05/17/18 04:13 MPV 9.5 fL (8.7-11.7) 05/17/18 04:13 Neut % (Auto) 63.6 % (39.3-74.2) 05/17/18 04:13 Lymph % (Auto) 17.3 % (15.0-45.0) 05/17/18 04:13 Starke % (Auto) 14.0 % (4.5-13.0) H 05/17/18 04:13 Eos % (Auto) 4.1 % (0.6-7.6) 05/17/18 04:13 Baso % (Auto) 0.5 % (0.3-1.7) 05/17/18 04:13 Nucleat RBC Rel Count 0.4 % (0.0-0.2) H 05/17/18 04:13 Absolute Neuts (auto) 4.64 10^3/uL (1.70-6.50) 05/17/18 04:13 Absolute Lymphs (auto) 1.26 10^3/uL (1.00-3.00) 05/17/18 04:13 Absolute Monos (auto) 1.02 10^3/uL (0.30-0.80) H 05/17/18 04:13 Absolute Eos (auto) 0.30 10^3/uL (0.03-0.40) 05/17/18 04:13 Absolute Basos (auto) 0.04 10^3/uL (0.02-0.10) 05/17/18 04:13 Absolute Nucleated RBC 0.03 10^3/uL (0-0.01) H 05/17/18 04:13 Immature Gran % 0.5 % (0.0-1.1) 05/17/18 04:13 Immature Gran # 0.04 10^3/uL (0.00-0.10) 05/17/18 04:13 Platelet Estimate ADEQUATE (ADEQ) 05/16/18 07:18 Polychromasia 1+ H 05/16/18 07:18 Microcytic Cells 1+ H 05/16/18 07:18 Tear Drop Cells 1+ H 05/16/18 07:18 Elliptocytes 1+ H 05/16/18 07:18 Acanthocytes (Spur) 1+ H 05/16/18 07:18 PT 17.2 SEC (12.0-15.0) H 05/16/18 07:18 INR 1.39 (0.83-1.16) H 05/16/18 07:18 Sodium 140 mEq/L (135-145) 05/16/18 07:18 Potassium 4.9 mEq/L (3.5-5.2) 05/16/18 07:18 Chloride 107 mEq/L (97-110) 05/16/18 07:18 Carbon Dioxide 22 mEq/l (22-31) 05/16/18 07:18 Anion Gap 11 mEq/L (6-14) 05/16/18 07:18 BUN 12 mg/dL (7-23) 05/16/18 07:18 Creatinine 0.8 mg/dL (0.7-1.3) 05/16/18 07:18 Estimated GFR > 60 05/16/18 07:18 Glucose 101 mg/dL (70-100) H 05/16/18 07:18 POC Glucose 104 mg/dL (70-100) H 05/17/18 08:55 Calcium 8.8 mg/dL (8.5-10.4) 05/16/18 07:18 Magnesium 2.1 mg/dL (1.6-2.3) 05/16/18 07:18 Iron 37.0 mcg/dL (49.0-199.0) L 05/16/18 07:15 TIBC 456 ug/dL (260-490) 05/16/18 07:15 Iron Saturation 8 % (20-55) L 05/16/18 07:15 Ferritin 7.0 ng/mL (17.9-464.0) L 05/16/18 07:15 Triglycerides 185 mg/dL (40-150) H 05/16/18 07:18 Cholesterol 105 mg/dL (140-220) L 05/16/18 07:18 Cholesterol Risk Factr 1.0 (0.2-1.0) 05/16/18 07:18 LDL Cholesterol, Calc 47 mg/dL (80-100) L 05/16/18 07:18 LDL Risk Factor 0.8 (0.2-1.0) 05/16/18 07:18 VLDL Cholesterol 37 mg/dL (8-25) H 05/16/18 07:18 Non-HDL Cholesterol 84 mg/dL (90-129) L 05/16/18 07:18 HDL Cholesterol 21 mg/dL (40-65) L 05/16/18 07:18 LDL/HDL Ratio 2.24 RATIO (1.00-3.64) 05/16/18 07:18 Cholesterol/HDL Ratio 5.00 RATIO (1.00-4.97) H 05/16/18 07:18 Vitamin B12 > 1000 pg/mL (239-931) H 05/16/18 07:15 Folate > 20.00 ng/mL (2.80 - >20.00) 05/16/18 07:15 Patient ABO/Rh A POSITIVE 05/16/18 08:32 Antibody Screen NEGATIVE 05/16/18 08:32 Crossmatch IS Only See Detail 05/16/18 08:32 Interpretation: Chest CT: endobronchial thickening and occlusion in the bilateral lower lobes, left greater than right. This may represent mucous plugging and subsequent pneumonitis/hemorrhage, underlying malignancy cannot be exluded. Increase in size of lingular pulmonary nodule. Assessment & Plan Assessment: Mr Esteban is a 67yo M who underwent diagnostic coronary angiography with Dr Shukla yesterday for progressive angina despite medical treatment found to have critical coronary disease. Medicine has been consulted to help with management of anemia and abnormal chest CT findings. Plan: 1. Acute on chronic microcytic anemia: Labs demonstrate rather severe iron deficiency. This has likely been a slow down-trend over the last year or so in the setting of being on systemic anticoagulation in addition to DAPT. There are multiple possible etiologies including pulmonary, GI, nasopharyngeal. Evaluating for source of bleeding is not emergent, but may reveal an underlying malignant process. Reasonable to pursue work up prior to cardiac procedure if cardiology feels he can tolerate conscious sedation. - Recommend starting IV iron (ferric gluconate 125mg daily) - Consult GI and pulmonology for consideration of colonoscopy and bronchoscopy, respectively 2. Occlusion of bilateral lower lobes: Given his chronic bronchitis and the bilateral nature, I suspect this is mucous plugging. However, he has an extensive smoking history so malignancy is a possibility. - Discuss with pulmonology as above. He sees Kulwinder Sims as an outpatient - Recommend starting mucinex if not already on 3. Type 2 diabetes: A1c is within normal range - Agree with holding metformin in setting of contrast load - Will add on regular glucose checks and sliding scale insulin in kayla- operative period 4. CAD with progressive angina: No pain at rest. Cardiology plans to consult CT surgery for CABG given his occluded RCA and LAD. He is on aspirin and statin therapy as well as BB and ACEi. Plavix on hold with possible surgery. 5. Peripheral vascular disease: Had thrombotic occlusion of 1 of his bypass grafts last year prompting use of systemic anticoagulation which is now on hold. 6. AAA: 4.4cm on last check. 7. H/o hepatitis C s/p treatment 8. H/o prostate cancer: Unclear circumstances/treatment. Thank you for this consult, we will continue to follow along.
[2018-05-17] MEDS ORDERED: D50W 25 GM/50 ML SYR IVP PRN (15:32)
[2018-05-17] MEDS: PANTOPRAZOLE SODIUM 40 MG TAB PO SCH (15:37)
[2018-05-17] MEDS: SODIUM FERRIC GLUCONAT/SUCROSE 125 MG in NS 100 ML IV SCH (16:26)
[2018-05-17] MEDS ORDERED: ALBUTEROL 60 PUFFS/8 GM MDI IH PRN (16:59)
--- NOTE | 2018-05-17 17:45 | GCON ---
PULMONARY CONSULT DATE OF CONSULTATION: 05/17/2018 REFERRING PHYSICIAN: Dr. Sagastume HPI: I was asked by Dr. Sagastume to evaluate this patient with hemoptysis. He is a 67-year-old male wit h a history of coronary artery disease and probably COPD. He has had coronary stents in the past and was recently seen in Cardiology Clinic complaining of exertional chest pain. A subsequent cardiac c atheterization revealed occlusion of his left anterior descending and extensive collateral flow to th e right coronary artery distribution. In any case, he was thought not to be a candidate for stenting and is planning to get a coronary artery bypass graft in the near future. Complicating his medical history is the description of hemoptysis. He described that as being very small and scant with cullen s of bright red blood and rare dark blood that has occurred over the last 3-4 weeks. During the same time, he has had difficulty with nosebleeds associated with blowing his nose. He has been on aspiri n, Plavix and Coumadin for peripheral arterial disease complicated by previous fem-pop bypasses that had graft occlusion, required thrombectomy and lifelong anticoagulation. He only stopped his Coumadi n recently. His appetite has been normal, and he has had only weight gain but no weight loss. He is a former smoker of some 80-pack years but quit in 2007. At that time, he developed increasing cough with lots of mucus production and substantial amounts of hemoptysis. He saw Dr. Sims shortly there after and, in 2009, underwent bronchoscopy where no bleeding was found, and it was thought to be due to chronic bronchitis. He was not sure if he had used inhalers at that time, but he is not currently using any metered dose inhalers. His breathing has been quite fine. He denies any shortness of chapito ath or any chronic oxygen usage. As I said, there has been no unanticipated weight loss, and he has not had any difficulty with black/tarry stools or obvious GI bleeding. In addition, he has had diffi culty with some anemia, and there was concern that he might have been losing blood from his lungs, wh ich is exceedingly rare. In any case, a review of his [employer] records showed that his hematocrit ru ns about 30-35 in 2016, and in February 2017, was running in the 26-28 range, and now is 25. REVIEW OF SYSTEMS: Otherwise negative except for that mentioned in the HPI. PAST MEDICAL HISTORY: Includes: 1. Abdominal aortic aneurysm, measuring 4.4 cm. 2. Chronic bronchitis. 3. Hypertension. 4. Peripheral arterial disease. 5. Chronic claudication. 6. Erectile dysfunction. 7. The hemoptysis in 2009, as described. 8. Hypogonadism. 9. Metabolic syndrome. 10. B12 deficiency. 11. Essential tremor. 12. Prostate cancer. 13. Hepatitis C antibody positive. 14. Hyperlipidemia. 15. Arterial thrombosis of his previous fem-pop bypass. 16. Chronic warfarin usage. 17. Diabetes. 18. Nonhealing wound of the heel. 19. Coronary artery disease as described. PAST SURGICAL HISTORY: Includes: 1. Previous stents. 2. Bilateral fem-pop bypasses complicated by acute thrombosis requiring thrombectomy in 2017. SOCIAL HISTORY: He has an [id number] smoking history. Drinks occasional alcohol but no alcohol-re lated illnesses and quit smoking in 2007. FAMILY HISTORY: Includes coronary artery disease. MEDICATIONS: Previously included Coumadin, which he is not currently taking, as well as aspirin and Plavix. Current medications include aspirin, Lipitor, iron, Neurontin, insulin, metoprolol, Protonix , ramipril. PHYSICAL EXAM: VITAL SIGNS: He has been afebrile. His blood pressure today 122/54. Heart rate is 71, sinus rhythm, respiratory rate 18, oxygen saturation 92% on room air. GENERAL: He was a very pl easant, obese male sitting up in a chair, in no apparent distress and able to speak in full sentences without using accessory muscles of breathing. HEENT: Pupils are equally round and reactive to ligh t, nonicteric and noninjected. Mucous membranes are moist without erythema or exudate. NECK: Suppl e without adenopathy or jugular vein distention. LUNGS: Breath sounds were somewhat coarse in the b ases bilaterally without wheezing. Upper lung zones were clear to auscultation. HEART: Had a regul ar rate and rhythm without obvious murmur to me. ABDOMEN: Soft, nontender, nondistended without hep atosplenomegaly. EXTREMITIES: Show no clubbing, cyanosis, or edema. NEUROLOGIC: Nonfocal, includi ng cranial nerves, deep tendon reflexes. OBJECTIVE DATA: Includes a CT scan performed 05/16/2018, showing bilateral but primarily in the left lower lobe consolidation with atelectasis and mucus plugging. There is diffuse peribronchial thicke adin but no adenopathy. There is a left upper lobe/lingula nodule, measuring 7 mm that was 4 mm in 2 012, though the film positioning is quite different between them. There is also two 5 mm lesions in the right lower lobe and right middle lobe, which are unchanged from 2012. His white count is 7.3. Last hematocrit was 27.4, platelets of 328. Basic metabolic panel was rafia l. Iron saturation was low. TIBC was 450. B12 and folate were high. Occult blood in the stool was negative. I should mention that I did review the CT scans personally. ASSESSMENT/PLAN: 1. Hemoptysis. I think this is highly unlikely to be coming from his lungs, and it is a very tiny a mount. The likelihood of somebody with chronic bronchitis having hemoptysis on aspirin, Plavix, and Coumadin is quite high. In addition, he has been having nosebleeds, which is probably tracking down. He felt this was the likely source as well. I think the likelihood of cancer is very, very low, an d I do not feel that a bronchoscopy is eminent at this moment. 2. Lung nodules on a CT scan. As I said, I do not think these are malignant. There may be some min or changes from 1 film to the next, but there has certainly been at least a year between them. I thi nk a followup CT scan in about 3 months' time for further evaluation would be all I would do about th ose nodules. I certainly would not do a bronchoscopy prior to his upcoming cardiac surgery. 3. Probable chronic obstructive pulmonary disease. I looked in [employer] and [employer] and did not fi nd any pulmonary function testing, but his history fits well. The CT scan also shows some emphysema, so I am going to start him on Spiriva and as-needed albuterol. Eventually, we will get some pulmona ry function testing. At the very least, these medications may decrease his mucus production from his lungs. 4. Coronary artery disease. This is obviously up to the management of the cardiology team, and I do not think that these issues should prevent him from having surgery. We will continue to follow. /[id number]/MODL
[2018-05-17] MEDS: INSULIN LISPRO 100 UNIT/ML SC SCH (17:46)
[2018-05-17] MEDS: TIOTROPIUM INHALER 18 MCG/DOSE 5 DOSE/MDI IH SCH (17:53)
--- NOTE | 2018-05-17 18:04 | CPEKG ---
Test Reason : OPEN Blood Pressure : / mmHG Vent. Rate : 067 BPM Atrial Rate : 066 BPM P-R Int : 220 ms QRS Dur : 092 ms QT Int : 428 ms P-R-T Axes : 044 -21 -36 degrees QTc Int : 452 ms Sinus rhythm First degree AV block Borderline left axis deviation Low voltage, extremity leads Nonspecific T abnormalities, inferior leads Confirmed by Alex Fragoso ([id number]) on 05/17/2018 6:04:16 PM Referred By: Confirmed By:Alex Fragoso
--- NOTE | 2018-05-17 18:23 | ASMTCMCOM ---
CM Note CM Note Notes: Pt admitted by elementary secretary, he is being worked up for exertional chest pain. DC need TBD, CM w/f DC Plan: TBD Date Signed: 05/17/2018 06:22 PM Electronically Signed By:Lissette Valle RN
[2018-05-17] MEDS: ATORVASTATIN CALCIUM 20 MG TAB PO SCH (20:41)
[2018-05-17] MEDS: METOPROLOL SUCCINATE XR 50 MG TAB PO SCH (20:41)
[2018-05-17] MEDS: RAMIPRIL 5 MG CAP PO SCH (20:42)
[2018-05-17] MEDS: ASPIRIN 81 MG CHEWABLE TAB PO SCH (20:42)
[2018-05-18] MEDS: INSULIN LISPRO 100 UNIT/ML SC SCH (08:36)
--- NOTE | 2018-05-18 08:46 | HOSPPROG ---
Hospitalist Progress Note Assessment/Plan: Mr Esteban is a 67yo M who underwent diagnostic coronary angiography with Dr Shukla yesterday for progressive angina despite medical treatment found to have critical coronary disease. Medicine has been consulted to help with management of anemia and abnormal chest CT findings. 1. Chronic anemia: Slight down-trend over >1 year in setting of warfarin and 2 antiplatelet agents. He's had some intermittent bleeding (epistaxis, scant hemoptysis 2/2 irritation from chronic bronchitis) that has lead to iron deficiency. - Pulmonology evaluated, no indication for bronchoscopy - Continue IV iron for 3 doses then switch to oral - Started empiric PPI - GI consulted to discuss endoscopy although unclear if having melena. FOBT negative - Given the chronicity, I do not think this needs urgent evaluation prior to cardiac surgery 2. Chronic bronchitis with possible emphysema: With some mucous plugging on CT. Started on spiriva. 3. Metabolic syndrome: On metformin for this, not diabetic (A1c 5.2%). BG checks have all been normal, will discontinue regular checks. 4. Lung nodules: Relatively stable. Follow up CT in 3 months. 5. CAD with progressive angina: Cardiology is primary, planning on CABG in near future. He is on aspirin and statin therapy as well as BB and ACEi. Plavix on hold with possible surgery. 6. Peripheral vascular disease: Had thrombotic occlusion of 1 of his bypass grafts last year prompting use of systemic anticoagulation which is now on hold. 7. AAA: 4.4cm on last check. 8. H/o hepatitis C s/p treatment We will continue to follow along. Subjective: Doing well this morning. No abd pain, hemoptysis, nosebleeds. SPINDLE TESTER reports some darker stool. Objective: Vital Signs Temp Pulse Resp BP Pulse Ox 37.1 C 68 18 91/64 L 91 L 05/18/18 08:00 05/18/18 08:00 05/18/18 08:00 05/18/18 08:00 05/18/18 08:00 Laboratory Results 05/17/18 04:13 05/16/18 07:18 05/17/18 05/18/18 05/19/18 05:59 05:59 05:59 Intake Total 1585 1180 Output Total 4100 3200 450 Balance -[id number] PT 17.2 SEC (12.0-15.0) H 05/16/18 07:18 INR 1.39 (0.83-1.16) H 05/16/18 07:18 - Physical Exam Constitutional: no apparent distress, obese Eyes: PERRL, anicteric sclera, EOMI Ears, Nose, Mouth, Throat: moist mucous membranes, hearing normal, ears appear normal, no oral mucosal ulcers Cardiovascular: regular rate and rhythym, no murmur, rub, or gallop, No edema Respiratory: no respiratory distress, no rales or rhonchi, clear to auscultation Gastrointestinal: normoactive bowel sounds, soft, non-tender abdomen, no palpable masses, distension Skin: no rashes or abrasions, no fluctuance, no induration Musculoskeletal: full muscle strength, no muscle tenderness, normal joint ROM Neurologic: AAOx3, sensation intact bilaterally Psychiatric: interacting appropriately, not anxious, not encephalopathic, thought process linear ICD10 Worksheet Patient Problems: Problems Problem Status Onset CAD (coronary artery disease) Acute Preoperative cardiovascular examination Acute
[2018-05-18] MEDS: SODIUM FERRIC GLUCONAT/SUCROSE 125 MG in NS 100 ML IV SCH (08:52)
[2018-05-18] MEDS: GABAPENTIN 300 MG CAP PO SCH ×3 (08:52→19:43)
[2018-05-18] MEDS: PANTOPRAZOLE SODIUM 40 MG TAB PO SCH (08:52)
[2018-05-18] MEDS: TIOTROPIUM INHALER 18 MCG/DOSE 5 DOSE/MDI IH SCH (09:24)
--- NOTE | 2018-05-18 10:20 | PDCARPN ---
Cardiology Progress Note Assessment/Plan: Assessment/Plan: 67-year-old male with significant coronary disease admitted with crescendo angina. Found to have totally occluded LAD and known total occlusion of the RCA. May need coronary bypass. Other issues include acute on chronic anemia with lab suggestive of iron deficiency; peripheral vascular disease with history of AAA and bilateral fem-pop bypass grafting that was complicated by thrombotic occlusion. Therefore, up until this admission he had been on warfarin plus dual antiplatelet therapy. Chest CT this admission also shows increase in size of 1 of his pulmonary nodules as well as some other abnormalities in the parenchyma. 1. Coronary disease: He has crescendo angina based on progressive LAD disease with reduction in the collateral flow to the RCA territory coupled with anemia. He is not having rest angina. Will ultimately need revascularization with bypass once his noncardiac medical issues have been further evaluated and stabilized. Continue medical therapy with beta-stefania, DENISHA-inhibitor, statin and aspirin. Plavix on hold. 2. Anemia: He did require a single unit this admission. Warfarin and plavix on hold. Iron and PPI started. No active bleeding. Appreciate internal medicine and GI consultation. Plan is for EGD/c scope Sunday 05/20. 3. Abnormal chest CT and probable COPD: Several pulmonary nodules and 1 increasing in size. Hemoptysis. Appreciate pulmonary consultation. Patient is a former smoker, but Dr. Wheeler thinks low risk of CA. Inhalers started. No bronch needed at this time. Short term follow up chest CT. 4. Peripheral vascular disease: He has an abdominal aortic aneurysm 4.4 cm and has had bilateral fem-pop bypass grafting. This is followed by Dr. Amador. Last year he had thrombotic occlusion of 1 of his bypass grafts and this is the reason he was previously on warfarin. He is not having any claudication symptoms. Extremities are warm. Will order surveillance abd CT with bilateral run off requested by Dr. Amador as outpatient. 5. Diabetes: This is listed on his problem list. Hemoglobin A1c was 5.6 in July of this year. The patient reports he does not think he has diabetes. Metformin on hold for 72 hr post catheterization. 6. Hypertension: Currently well controlled. 05/18/18 10:24 Subjective: Has not had chest pain or dyspnea at rest. Minimal ambulation. No lightheadedness. Reviewed/Discussed With: other (Dr. Wheeler and Dr. Gatof) Objective: Vital Signs (8 Hrs) Temp Pulse Resp BP Pulse Ox 05/18/18 09:31 68 16 94 05/18/18 08:00 37.1 C 68 18 91/64 L 91 L 05/18/18 03:47 36.6 C 64 18 113/58 L 95 Intake/Output (24 Hrs) 05/17/18 05/18/18 05/19/18 05:59 05:59 05:59 Intake Total 1585 1180 Output Total 4100 3200 450 Balance -[id number] Intake: Oral (ml) 1140 1040 IV Intake (ml) 125 IV Infused (ml) 140 Sodium Ferric Gluconat/ 140 Sucrose 125 mg In Ns 100 ml @ 110 mls/hr IV DAILY [facility] Rx#:[id number] Whole Blood (ml) 320 Output: Urine (ml) 4100 3200 450 Toilet 1700 3200 450 Urinal 2400 Other: Weight 95.3 kg Number of Voids Urinal 1 Number of Stools Toilet 1 1 Pale. No acute distress JVP less than 10. Regular rate and rhythm with soft early systolic murmur at the left lower sternal border Lungs occasional inspiratory wheeze. No rales No lower extremity edema. Warm. Result Diagrams: 05/17/18 04:13 05/16/18 07:18 Telemetry: Sinus rhythm with PVCs ICD10 Worksheet Patient Problems: Problems Problem Status Onset Preoperative cardiovascular examination Acute CAD (coronary artery disease) Acute
[2018-05-18] MEDS ORDERED: IOPAMIDOL (ISOVUE-370) 150 ML BTL IV ONE (12:42)
--- NOTE | 2018-05-18 13:55 | GCON ---
DATE OF CONSULTATION: 05/18/2018 REFERRING PHYSICIAN: Ruthann Sagastume MD REASON FOR CONSULTATION: For iron deficiency anemia Dear Dr. Sagastume: Thank you very kindly for asking me to evaluate the patient in consultation for a new onset iron defi ciency anemia. He was admitted for chest pain related to occlusion of the proximal RCA and proximal LAD with what is felt to be an exertional angina. He was found to be anemic with a hemoglobin of 7.2 , which has decreased from 9.3 in February of last year. He has been chronically mildly anemic, but again a slow trend downward since 2017, and this has not been fully evaluated. The patient does not notice any blood in his stools. He denies any hematochezia or melena. He does have chronic diarrhe a that has been present ever since he underwent prostate radiation therapy for prostate cancer. He h as also been having chronic epistaxis. It was also noted for him to have a small volume hemoptysis, but this has been evaluated in the past by Dr. Kulwinder Sims and felt to be due to chronic bronchitis. Dr. Wheeler has also evaluated him for hemoptysis and pulmonary nodules on this admission and felt th at this was not the cause of concern. Recommendations are to follow up the nodules by CT imaging and no further evaluation or bronchoscopy. The patient also reports some episodic right lower quadrant pain, but denies any trouble with heartburn, hematemesis, nausea, vomiting, or dysphagia. I am asked to assist with further evaluation and management of his iron deficiency anemia in the sett ing of a preoperative evaluation for upcoming CABG surgery. PAST MEDICAL HISTORY: Significant for coronary artery disease, peripheral vascular disease, prostate cancer, hepatitis C with history of therapy, peripheral neuropathy, type 2 diabetes, osteoarthritis, chronic bronchitis, history of hypertension, likely COPD. PAST SURGICAL HISTORY: Aortobifemoral bypass complicated by an occlusive thrombosis with revasculari zation. He has had a previous colonoscopy in 2014, with a prior colon polyp. FAMILY HISTORY: Negative. SOCIAL HISTORY: Patient is a former tobacco user. MEDICATIONS ON ADMISSION: Include: Aspirin, atorvastatin, gabapentin, metoprolol, fish oil, ramipri l, metformin, loperamide, warfarin, Plavix. Of note, his Plavix and warfarin had been recently disco ntinued on this hospitalization. ALLERGIES: None known. REVIEW OF SYSTEMS: CONSTITUTIONAL: Denies anorexia, weight loss, nausea. HEENT: No headache. No visual disturbances. He denies sore throat or difficulty swallowing. PULMONARY: He has exertional shortness of breath. He has had mild cough with blood-tinged sputum that has been intermittent. CAR DIOVASCULAR: He has reported exertional chest pain. No chest pain at rest. No palpitations. No sy ncope. GI: Denies heartburn, dysphagia, nausea or vomiting. He does have chronic diarrhea that is nonbloody. He takes Imodium twice a day pretty routinely to result in a formed bowel movement. No m farzana. No hematemesis. Denies constipation. RHEUMATOLOGIC: Denies joint pain. DERMATOLOGIC: Den ies bruising or rash. No jaundice. No pruritus. GENITOURINARY: He denies urinary frequency, hematu denia, or dysuria. No flank pain. PSYCHIATRIC: No depression or anxiety. NEUROLOGIC: No paresthesi as or focal motor weakness. No falls or seizure. ENDOCRINE: No heat or cold intolerance. PHYSICAL EXAM: VITAL SIGNS: Blood pressure is 91/64 to 122/58 in the left upper extremity, heart ra te has been 68, respirations are 18, oxygenation is 95% on 2 L nasal cannula, temperature is 36.6. G ENERAL: Obese male in no acute distress. HEENT: Normocephalic, atraumatic. Mucous membranes are m oist. No blood in the nares or posterior pharynx. NECK: Supple. No jugular venous distention or c arotid bruit. No lymphadenopathy. PULMONARY: Coarse breath sounds, with occasional rhonchorous chapito athing, seems to clear with cough. No obvious rales. Good air exchange. CARDIOVASCULAR: Regular r ate and rhythm. Systolic murmur 2/6 at the left sternal border. No radiation. GI. Abdomen is soft , obese, nontender, nondistended. No ascites. No obvious organomegaly. No abdominal bruit. EXTREM ITIES: No edema. MUSCULOSKELETAL: Normal gait and station. No clubbing. No cyanosis. No palmar erythema. DERMATOLOGIC: No rash, bruising, or spider angiomata. No jaundice. NEUROLOGIC: Alert t o person, place, and time. Normal speech and affect. Motor is nonfocal. DATABASE: Includes: White blood count is 7.3, hematocrit is 27.4 with an MCV of 79, platelets are 3 20. INR is 1.39 with a PT of 7.2. Sodium 140, potassium 3.9, chloride 107, bicarbonate 22, BUN 12, creatinine 0.8, glucose 101. Iron is 37 with a TIBC of 456, percent saturation is 8, ferritin is 7. B12 is greater than a 1000, f olate is greater than 20. Hemoccult of the stool is negative for blood on 05/17/2018,. Coronary artery catheterization on 05/16/2018. This included coronary angiography with left ventricu logram. He was found to have 100% occlusion of the LAD, 100% occlusion of the RCA. Left ventricular ejection fraction is 64%. Recommendations for critical coronary disease with complete occlusion of the proximal right coronary artery and the proximal LAD, with well collateralized distal targets was for coronary artery bypass anel coats. IMPRESSION: 1. Iron deficiency anemia. 2. Epistaxis. 3. Hemoptysis in the setting of pulmonary nodule that has been evaluated by Pulmonary and felt to be nonurgent. 4. Coronary artery disease. 5. Peripheral vascular disease. 6. Stable angina, predominantly with exertion, and likely worsened by his anemia. 7. Personal history of colon polyps, with his last colonoscopy in 2013. 8. Chronic anticoagulation. RECOMMENDATIONS: 1. While there is risk in proceeding with endoscopic evaluation of his iron deficiency anemia, I bel ieve the benefit of understanding the possible cause of his iron deficiency and without any other alfred ntifiable cause for this is necessary preoperatively. He will be undergoing a cardiopulmonary bypass and significant blood thinning endeavors with this, and it would be beneficial to know that there is not an underlying bleeding source. 2. Anesthesia consultation for propofol for monitored anesthesia care for his procedures. 3. GoLYTELY 1 gallon in split fashion. 4. Upper endoscopy, with small bowel biopsies to rule out malabsorption. 5. Colonoscopy. This will serve to evaluate his chronic diarrhea as well. He may have an element o f radiation proctitis from his previous prostate intervention. Some random colon biopsies can also b e taken to exclude microscopic colitis. This will also bring him up to date on his surveillance inte rventions. 6. If his upper endoscopy and colonoscopy are without significant source of bleeding or iron deficie ncy, then I would recommend transfusion, iron replacement and proceeding with cardiac surgery as dict ated. 7. Further recommendations to follow. We will plan for his procedures on Saturday to allow his Plavix to be more thoroughly out of his system, so the interventions will cause less risk of ble eding. 8. Continue to hold warfarin. 9. He may continue aspirin therapy. /[id number]/MODL
[2018-05-18] MEDS: ATORVASTATIN CALCIUM 20 MG TAB PO SCH (19:43)
[2018-05-18] MEDS: ASPIRIN 81 MG CHEWABLE TAB PO SCH (19:43)
[2018-05-18] MEDS: RAMIPRIL 5 MG CAP PO SCH (19:43)
[2018-05-18] MEDS: METOPROLOL SUCCINATE XR 50 MG TAB PO SCH (19:43)
[2018-05-19] MEDS: GABAPENTIN 300 MG CAP PO SCH ×3 (08:21→21:04)
[2018-05-19] MEDS: PANTOPRAZOLE SODIUM 40 MG TAB PO SCH (08:21)
[2018-05-19] MEDS: SODIUM FERRIC GLUCONAT/SUCROSE 125 MG in NS 100 ML IV SCH (08:21)
[2018-05-19] MEDS: TIOTROPIUM INHALER 18 MCG/DOSE 5 DOSE/MDI IH SCH (08:55)
--- NOTE | 2018-05-19 11:01 | PDCARPN ---
Cardiology Progress Note Chief Complaint: CAD/new onset angina Assessment/Plan: Assessment: 67-year-old male with significant coronary disease admitted 05/16 with crescendo angina. Found to have totally occluded LAD and known total occlusion of the RCA with likely revascularization with coronary bypass. Other issues include acute on chronic anemia with lab suggestive of iron deficiency; peripheral vascular disease with history of AAA and bilateral fem-pop bypass grafting that was complicated by thrombotic occlusion. Therefore, up until this admission he had been on warfarin plus dual antiplatelet therapy. Chest CT this admission also shows increase in size of 1 of his pulmonary nodules as well as some other abnormalities in the parenchyma. #. Coronary disease: crescendo angina based with progressive LAD disease with reduction in the collateral flow to the RCA territory coupled with anemia not having rest angina Will ultimately need revascularization with bypass once his noncardiac medical issues have been further evaluated and stabilized Continue medical therapy with beta-stefania, DENISHA-inhibitor, statin and aspirin. Plavix on hold. #. Anemia: He did require a single unit this admission Warfarin and plavix on hold Iron and PPI started No active bleeding Hemoptysis likely from epistaxis versus irritation from chronic COPD Appreciate internal medicine and GI consultation Plan is for EGD/c scope Sunday 05/20. #. Abnormal chest CT and probable COPD: Several pulmonary nodules and 1 increasing in size felt to be low risk for lung CA repeat CT in 3 months #. Peripheral vascular disease: He has an abdominal aortic aneurysm 4.4 cm and has had bilateral fem-pop bypass grafting Last year he had thrombotic occlusion of 1 of his bypass grafts and this is the reason he was previously on warfarin surveillance abd CT with patent bilateral run off #. Diabetes: This is listed on his problem list Hemoglobin A1c was 5.6 in July of this year Metformin on hold for 72 hr post catheterization. #. Hypertension: Currently well controlled. #. Dyslipidemia: LDL well-controlled #. Carotid bruit: check carotid dopplers Plan: - Carotid dopplers today 05/19/18 10:54 Subjective: No cp, claudications, dyspnea. Objective: Vital Signs (8 Hrs) Temp Pulse Resp BP Pulse Ox 05/19/18 08:58 83 18 93 05/19/18 08:00 98.5 F 96 19 117/69 97 05/19/18 04:00 98.4 F 63 18 127/63 H 95 Intake/Output (24 Hrs) 05/18/18 05/19/18 05/20/18 05:59 05:59 05:59 Intake Total 1180 1040 470 Output Total 3200 4975 650 Balance -2019 -3935 -180 Intake: Oral (ml) 1040 890 360 IV Infused (ml) 140 150 110 Sodium Ferric Gluconat/ 140 150 110 Sucrose 125 mg In Ns 100 ml @ 110 mls/hr IV DAILY [facility] Rx#:[id number] Output: Urine (ml) 3200 4975 650 Toilet 3200 4525 650 Urinal 450 Other: Output Comment Toilet per pt Number of Voids Toilet 1 Number of Stools Toilet 1 1 1 Result Diagrams: 05/17/18 04:13 05/16/18 07:18 Cardiac Labs: Laboratory Tests 05/16/18 07:18 LDL Cholesterol, Calc 47 L EKG: SR, inf Twi Telemetry: SR with PVCs - Physical Exam Constitutional: healthy appearing, no apparent distress Eyes: anicteric sclera Ears, Nose, Mouth, Throat: moist mucous membranes Cardiovascular: regular rate and rhythm, no rubs, no gallops Peripheral Pulses: 1+: carotid (R) (bilateral bruits) Respiratory: clear to auscultate bilat, other (some rhonchi) Gastrointestinal: normoactive bowel sounds, no tenderness Genitourinary: no suprapubic tenderness, No villa in urethra Skin: no abrasions, no ulcers, warm Neurologic: AAOx3 Psychiatric: cooperative, interactive ICD10 Worksheet Patient Problems: Problems Problem Status Onset CAD (coronary artery disease) Acute Preoperative cardiovascular examination Acute
--- NOTE | 2018-05-19 14:23 | ASMTCMCOM ---
CM Note CM Note Notes: Patient will have EGD/colonoscopy to help determine cause of anemia. He needs a CABG; however, this is pending resolution of his anemia and some other medical problems. He is currently independent in his ADLs. Case Management will continue to follow. Date Signed: 05/19/2018 12:18 PM Electronically Signed By:Cat Menjivar RN
--- NOTE | 2018-05-19 17:28 | HOSPPROG ---
Hospitalist Progress Note Assessment/Plan: DIAGNOSES: 1. Acute on chronic iron deficiency anemia, symptomatic * Status post 1 unit red cell transfusion * Status post IV iron replacement and taking p.o. Now * Hemoglobin stable today 2. CAD with progressive angina: Cardiology is primary, planning on CABG in near future. He is on aspirin and statin therapy as well as BB and ACEi. Plavix on hold with possible surgery. 3. Metabolic syndrome: On metformin for this, not diabetic (A1c 5.2%). BG checks have all been normal, will discontinue regular checks. 4. Lung nodules: Relatively stable. Follow up CT in 3 months. 5. Chronic bronchitis with possible emphysema: With some mucous plugging on CT. * Started on spiriva at this time 6. Peripheral vascular disease: Had thrombotic occlusion of 1 of his bypass grafts last year prompting use of systemic anticoagulation which is now on hold. 7. AAA: 4.4cm on last check. 8. H/o hepatitis C s/p treatment PLANS: * Will prep today for colonoscopy and EGD to be done tomorrow * No other changes in medications at this time * Continue follow hemoglobin closely, transfuse as indicated * Continue iron replacement * Will review colonoscopy and EGD tomorrow determine what recommendations are for further assessment and treatment of his anemia and iron deficiency * After that review plans for his heart surgery Seen by me today on hospitals rounds and multidisciplinary rounds SUBJECTIVE: Feels well, no cardiac or GI symptoms Has not seen any bleeding Respiratory symptoms stable OBJECTIVE Vitals reviewed: Stable without fever [employer], my review: Sinus Exam: alert oriented skin warm dry color ok resps not labored lungs clear BSs heart regular abd soft nondistended nontender, bowel sounds present limbs warm, no edema iv site ok Laboratory data: Hemoglobin stable at 8+ today Objective: Vital Signs Temp Pulse Resp BP Pulse Ox 37.1 C 93 19 130/61 H 94 05/19/18 16:00 05/19/18 16:00 05/19/18 16:00 05/19/18 16:00 05/19/18 16:00 Laboratory Results 05/19/18 11:50 05/16/18 07:18 05/18/18 05/19/18 05/20/18 06:59 06:59 06:59 Intake Total 1180 1040 2770 Output Total 3200 4975 2100 Balance -2019 670 PT 17.2 SEC (12.0-15.0) H 05/16/18 07:18 INR 1.39 (0.83-1.16) H 05/16/18 07:18 ICD10 Worksheet Patient Problems: Problems Problem Status Onset CAD (coronary artery disease) Acute Preoperative cardiovascular examination Acute
[2018-05-19] MEDS ORDERED: PEG 3350/NA SULF,BICARB,CL/KCL (GAVILYTE-G) 4000 ML BTL PO ONE (18:00)
[2018-05-19] MEDS: ASPIRIN 81 MG CHEWABLE TAB PO SCH (21:04)
[2018-05-19] MEDS: ATORVASTATIN CALCIUM 20 MG TAB PO SCH (21:04)
[2018-05-19] MEDS: RAMIPRIL 5 MG CAP PO SCH (21:04)
[2018-05-19] MEDS: METOPROLOL SUCCINATE XR 50 MG TAB PO SCH (21:04)
[2018-05-20] MEDS: SODIUM FERRIC GLUCONAT/SUCROSE 125 MG in NS 100 ML IV SCH (08:01)
[2018-05-20] MEDS: PANTOPRAZOLE SODIUM 40 MG TAB PO SCH (08:06)
[2018-05-20] MEDS: GABAPENTIN 300 MG CAP PO SCH ×3 (08:06→20:06)
[2018-05-20] MEDS: TIOTROPIUM INHALER 18 MCG/DOSE 5 DOSE/MDI IH SCH (08:13)
--- NOTE | 2018-05-20 13:49 | PDCARPN ---
Cardiology Progress Note Chief Complaint: crescendo angina Assessment/Plan: Assessment: 67-year-old male with significant coronary disease admitted 05/16 with crescendo angina. Found to have totally occluded LAD and known total occlusion of the RCA with likely revascularization with coronary bypass. Other issues include acute on chronic anemia with lab suggestive of iron deficiency; peripheral vascular disease with history of AAA and bilateral fem-pop bypass grafting that was complicated by thrombotic occlusion. Therefore, up until this admission he had been on warfarin plus dual antiplatelet therapy. Chest CT this admission also shows increase in size of 1 of his pulmonary nodules as well as some other abnormalities in the parenchyma. #. Coronary disease: crescendo angina based with progressive LAD disease with reduction in the collateral flow to the RCA territory coupled with anemia not having rest angina Will ultimately need revascularization with bypass once his noncardiac medical issues have been further evaluated and stabilized Continue medical therapy with beta-stefania, DENISHA-inhibitor, statin and aspirin. Plavix on hold. We are checking in with surgeons regarding timing of surgery. #. Anemia: He did require a single unit this admission Warfarin and plavix on hold IV Iron and PPI started No active bleeding Hemoptysis likely from epistaxis versus irritation from chronic COPD Appreciate internal medicine and GI consultation HB up to 8.6 Plan is for EGD/c scope Sunday 05/20. #. Abnormal chest CT and probable COPD: Several pulmonary nodules and 1 increasing in size felt to be low risk for lung CA repeat CT in 3 months #. Peripheral vascular disease: He has an abdominal aortic aneurysm 4.4 cm and has had bilateral fem-pop bypass grafting Last year he had thrombotic occlusion of 1 of his bypass grafts and this is the reason he was previously on warfarin surveillance abd CT with patent bilateral run off carotid bruit determined to be mod R ext carotid buit #. Diabetes: This is listed on his problem list Hemoglobin A1c was 5.6 in July of this year Metformin will be discontinued for now #. Hypertension: Currently well controlled #. Dyslipidemia: LDL well-controlled Plan: EGD/Colonoscopy today. 05/20/18 13:46 Subjective: Has completed bowel prep. No cp. CP/dyspnea improved. Objective: Vital Signs (8 Hrs) Temp Pulse Resp BP Pulse Ox 05/20/18 11:55 96.3 F L 77 16 122/67 H 94 05/20/18 08:00 97.7 F 64 15 129/62 H 97 Intake/Output (24 Hrs) 05/19/18 05/20/18 05/21/18 05:59 05:59 05:59 Intake Total 1040 5770 Output Total 4975 4750 Balance -3935 1020 Intake: Oral (ml) 890 5660 IV Infused (ml) 150 110 Sodium Ferric Gluconat/ 150 110 Sucrose 125 mg In Ns 100 ml @ 110 mls/hr IV DAILY [facility] Rx#:[id number] Output: Urine (ml) 4975 4750 Toilet 4525 4750 Urinal 450 Other: Intake Quantity Yes Sufficient Output Comment Toilet per pt Number of Voids Toilet 3 Number of Stools Incontinence 3 Toilet 1 2 Result Diagrams: 05/20/18 04:14 05/16/18 07:18 Telemetry: SR - Physical Exam Constitutional: WDWN, no apparent distress Eyes: PERRL Ears, Nose, Mouth, Throat: moist mucous membranes Cardiovascular: regular rate and rhythm, no murmurs Respiratory: clear to auscultate bilat Gastrointestinal: normoactive bowel sounds Skin: no rashes, warm Neurologic: AAOx3 Psychiatric: cooperative, interactive ICD10 Worksheet Patient Problems: Problems Problem Status Onset CAD (coronary artery disease) Acute Preoperative cardiovascular examination Acute
--- NOTE | 2018-05-20 13:55 | PDANEPAE ---
ANE History of Present Illness ANEMIC, HERE FOR egd/colo ANE Past Medical History - Cardiovascular History Hx Hypertension: Yes Hx Arrhythmias: No Hx Chest Pain: No Hx Coronary Artery / Peripheral Vascular Disease: Yes Hx CHF / Valvular Disease: No Hx Palpitations: No Cardiovascular History Comment: HYPERLIPIDEMIA. CARDIAC STENTS - Pulmonary History Hx COPD: Yes Hx Asthma/Reactive Airway Disease: No Hx Recent Upper Respiratory Infection: No Hx Oxygen in Use at Home: No Hx Sleep Apnea: No Sleep Apnea Screening Result - Last Documented: Positive Pulmonary History Comment: CHRONIC BRONCHITIS - Neurologic History Hx Cerebrovascular Accident: No Hx Seizures: No Hx Dementia: No - Endocrine History Hx Diabetes: Yes Endocrine History Comment: ELEVATED GLUCOSE - METFORMIN - Renal History Hx Renal Disorders: No - Liver History Hx Hepatic Disorders: No - Neurological & Psychiatric Hx Hx Neurological and Psychiatric Disorders: No - Cancer History Hx Cancer: No Cancer History Comment: PROSTATE CA - Congenital Disorder History Hx Congenital Disorders: No - GI History Hx Gastrointestinal Disorders: No - Other Health History Other Health History: R leg is "larger than L leg-Dr Amador aware 01/30/17." Some redness noted also. - Chronic Pain History Chronic Pain: No (LEG RAMIN PAIN) - Surgical History Prior Surgeries: R femoral popliteal bypass 01-22-17;. AORTA BYPASS 10 YRS AGO. ANGIOPLASTY W/STENTS. PROSTATE RADIOACTIVE IMPLANT. SKIN GRAFTS R LEG ANE Review of Systems Review of Systems: - Exercise capacity Exercise capacity: >=4 METS ANE Patient History - Allergies Allergies/Adverse Reactions: No Known Allergies Allergy (Verified 01/31/17 16:49) - Home Medications Home Medications: Aspirin [Aspirin 81mg (*)] 81 mg PO HS 01/22/17 [Last Taken 05/15/18 21:00] Atorvastatin Calcium [Lipitor 20 mg (*)] 20 mg PO HS 01/22/17 [Last Taken 21:00] Gabapentin [Neurontin 300 MG (*)] 300 mg PO TID 01/22/17 [Last Taken 05/15/18 21 :00] Metoprolol Succinate Xr [Toprol Xl 50 mg (*)] 50 mg PO HS 01/22/17 [Last Taken 05/15/18 21:00] [place]-3 Fatty Acids [Fish Oil 1000 mg (*)] 1,000 mg PO DAILY 01/22/17 [Last Taken 02/04/17] Ramipril [Altace 5mg (*)] 5 mg PO HS 01/22/17 [Last Taken 05/15/18 21:00] metFORMIN HCL [Metformin HCl ER] 1,000 mg PO DAILY 01/22/17 [Last Taken 08:00] Herbals/Supplements -Info Only 1 ea PO DAILY 02/18/17 [Last Taken Unknown] Loperamide HCl [Imodium 2 mg (*)] 2 mg PO BID PRN 05/15/18 [Last Taken Unknown] Warfarin Sodium [Coumadin 5MG (*)] 5 mg PO TUTH@16 05/15/18 [Last Taken 18:00] Warfarin Sodium [Coumadin 5MG (*)] 7.5 mg PO SUMOWEFRSA@05/15/18 [Last Taken 05/12/18 18:00] - NPO status NPO Status: no food or drink >8 hours NPO Since - Liquids (Date): 05/20/18 NPO Since - Liquids (Time): 10:00 NPO Since - Solids (Date): 05/20/18 NPO Since - Solids (Time): 06:00 - Anes Hx Anes Hx: no prior problems - Smoking Hx Smoking Status: Former smoker - Alcohol Use Alcohol Use: None - Family Anes Hx Family Anes Hx: none Family Hx Anesthesia Complications: NEG ANE Labs/Vital Signs - Labs Result Diagrams: 05/20/18 04:14 05/16/18 07:18 - Vital Signs Blood Pressure: 122/67 Heart Rate: 77 Respiratory Rate: 16 O2 Sat (%): 94 Height: 178 cm Weight: 95.3 kg ANE Physical Exam - Airway Neck exam: FROM Mallampati Score: Class 2 Mouth exam: poor dentition Mouth image: 1 - missing 2 - missing - Pulmonary Pulmonary: no respiratory distress, clear to auscultation - Cardiovascular Cardiovascular: regular rate and rhythym, no murmur, rub, or gallop - ASA Status ASA Status: III ANE Anesthesia Plan Anesthesia Plan: GA with mask Total IV Anesthesia: Yes
[2018-05-20] MEDS ORDERED: PROPOFOL/EMULSION 500 MG/50 ML BOTTLE IV ONE (14:03)
[2018-05-20] MEDS ORDERED: LR 1,000 ML IV ONE (14:11)
--- NOTE | 2018-05-20 14:13 | HOSPPROG ---
Hospitalist Progress Note Assessment/Plan: DIAGNOSES: * Acute on chronic iron deficiency anemia, symptomatic * Status post 1 unit red cell transfusion * Status post IV iron replacement and taking p.o. Now * Hemoglobin slowly improving, still fairly low * CAD with progressive angina: * Needs bypass surgery in near future, does not need to stay in hospital for this at present * Currently on aspirin and statin, off Plavix because of the iron deficiency anemia * Lung nodule in lingula, and Some LLL mucous plugging with atelectasis and a small L pleural effusion * Previously noted lung nodule in 2011 was 4 mm, now 7 mm * Seen by Dr. Ty Wheeler in consultation this admission recommending repeat CT scan in 3 months * COPD is noted on CT scan * Peripheral vascular disease: Had thrombotic occlusion of 1 of his bypass grafts last year prompting use of systemic anticoagulation which is now on hold. * AAA: 4.4cm on last check. * Metabolic syndrome: On metformin for this, not diabetic (A1c 5.2%). BG checks have all been normal, will discontinue regular checks. * H/o hepatitis C s/p treatment PLANS: * Colonoscopy and EGD today to evaluate iron deficiency anemia * Continue iron therapy orally at this time * Continue off Plavix and anticoagulants until we determine findings from his colonoscopy and EGD * Once we have a plan for dealing with what ever GI issues are identified, connected to determining the timing of bypass surgery. I reviewed with Kaci Greer of Cardiology. The patient's bypass surgery is not emergent and he does not need to have it done before discharge from this admission. From standpoint of doing Cardiac surgery it might be nice to get him better caught up on his anemia and iron levels before proceeding with surgery, he would probably recover much better and gives him more room if there is any bleeding difficulty. Seen by me today on hospitals rounds and multidisciplinary rounds SUBJECTIVE: Feels well, no cardiac or GI symptoms Has not seen any bleeding Notes he is able to ambulate with less fatigue and dyspnea since his transfusion and iron therapy OBJECTIVE Vitals reviewed: Stable without fever Editor Producer, my review: Sinus Exam: alert oriented skin warm dry color ok resps not labored lungs clear BSs heart regular abd soft nondistended nontender, bowel sounds present limbs warm, no edema iv site ok Laboratory data: Hemoglobin stable at 8+ today Sugars in good range Objective: Vital Signs Temp Pulse Resp BP Pulse Ox 35.7 C L 77 16 122/67 H 94 05/20/18 11:55 05/20/18 13:56 05/20/18 13:56 05/20/18 13:56 05/20/18 13:56 Laboratory Results 05/20/18 04:14 05/16/18 07:18 05/19/18 05/20/18 05/21/18 06:59 06:59 06:59 Intake Total 1040 5770 Output Total 0595 4750 Balance -3935 1020 PT 17.2 SEC (12.0-15.0) H 05/16/18 07:18 INR 1.39 (0.83-1.16) H 05/16/18 07:18 - Time Spent With Patient Time Spent with Patient: greater than 35 minutes Time Spent with Patient: Greater than 35 minutes spent on this patients care, greater than 50% of time spent counseling, educating, and coordinating care regarding the above mentioned plan. ICD10 Worksheet Patient Problems: Problems Problem Status Onset CAD (coronary artery disease) Acute Preoperative cardiovascular examination Acute
--- NOTE | 2018-05-20 14:41 | GIREPORT ---
[facility] Surgical Services - Endoscopy Department Patient Name: Chino Esteban Procedure Date: 05/20/2018 2:18 PM Patient Type: Inpatient Attending MD/ ER Physician: Chino Diaz MD Procedure: Upper GI endoscopy Indications: Iron deficiency anemia Providers: Chino Diaz MD Medicines: Propofol per Anesthesia Complications: No immediate complications. Description of Procedure: After obtaining informed consent, the endoscope was passed under direct vision. Throughout the procedure, the patient's blood pressure, pulse, and oxygen saturations were monitored continuously. The Endoscope was intro duced through the mouth, and advanced to the second part of duodenum. The [facility] er GI endoscopy was accomplished without difficulty. The patient tolerated th e procedure well. Findings: A non-obstructing Schatzki ring was found in the lower third of the esophagus. A medium-sized hiatal hernia was present. The entire examined stomach was normal. The duodenal bulb, first portion of the duodenum and second portion of the duodenum were normal. Biopsies for histology were taken with a cold for ceps for evaluation of celiac disease. Estimated Blood Loss: Estimated blood loss: none. Post Op Diagnosis: - Non-obstructing Schatzki ring. - Medium-sized hiatal hernia. - Normal stomach. - Normal duodenal bulb, first portion of the duodenum and second portio n of the duodenum. Biopsied. Recommendation: - Await pathology results. - Perform a colonoscopy today. - Advance diet as tolerated. - Return patient to hospital [facility] for ongoing care. - Thank you for allowing me to be involved in the care of your patient. Attending Participation: I personally performed the entire procedure without the assistance of a fellow, resident or surg ical maintenance assistant. Chino Diaz MD Chino Diaz MD 05/20/2018 2:40:50 PM This report has been signed electronicallyDavid MD Emily Number of Addenda: 0 Note Initiated On: 05/20/2018 2:18 PM [email or web address]
[2018-05-20] MEDS ORDERED: NALOXONE HCL 0.4 MG/ML INJ IVP PRN (14:49)
[2018-05-20] MEDS ORDERED: PROPOFOL 200 MG/20 ML VIAL ONE (14:56)
--- NOTE | 2018-05-20 15:01 | POSTANESTH ---
Post Anesthetic Evaluation Cardiovascular Status: Normal, Stable, Similar to Pre-Op Cond Respiratory Status: Normal, Stable, Similar to Pre-op Cond. Level of Consciousness/Mental Status: Mildly Sleepy, Arousable, Moderately Sleepy Pain Control: Adequate, Prn Tx Ordered Nausea/Vomiting Control: Adequate, Prn Tx Ordered Complications Possibly Related to Anesthesia: None Noted
--- NOTE | 2018-05-20 15:02 | GIREPORT ---
[facility] Surgical Services - Endoscopy Department Patient Name: Chino Esteban Procedure Date: 05/20/2018 2:18 PM Patient Type: Inpatient Attending MD/ ER Physician: Chino Diaz MD Procedure: Colonoscopy Indications: Iron deficiency anemia Providers: Chino Diaz MD Medicines: Propofol per Anesthesia Complications: No immediate complications. Description of Procedure: After obtaining informed consent, the scope was passed under direct vis ion. Throughout the procedure, the patient's blood pressure, pulse, and oxyg en saturations were monitored continuously. The Colonoscope with irrigatio n channel was introduced through the anus and advanced to the cecum, identified by appendiceal orifice and ileocecal valve. The colonoscopy was performed without difficulty. The patient tolerated the procedure well. The quality of the bowel preparation was excellent. The ileocecal valve, appendiceal orifice, and rectum were photographed. Findings: The digital rectal exam findings include decreased sphincter tone. Pert inent negatives include no palpable rectal lesions. Many small and large-mouthed diverticula were found in the sigmoid colo n. A 9 mm polyp was found in the rectum. The polyp was semi-sessile. The p olyp was removed with a hot snare. Resection and retrieval were complete. To prevent bleeding after the polypectomy, one hemostatic clip was success fully placed (MR conditional). There was no bleeding during, or at the end, o f the procedure. Estimated Blood Loss: Estimated blood loss: none. Post Op Diagnosis: - Decreased sphincter tone found on digital rectal exam. - Diverticulosis in the sigmoid colon. - One 9 mm polyp in the rectum, removed with a hot snare. Resected and retrieved. Clip (MR conditional) was placed. - No clear endoscopic cause for iron deficiency anemia was found on eit her the upper of lower endoscopies today. Recommendation: - Await pathology results. - Repeat colonoscopy in 5 years for surveillance. - I feel no further GI evaluation is needed for cardiothoracic clearnac e for the iron deficiency. - Iron infusions as outpatient to aid with correction of MATTHEW. Transfusi on as needed for symptomatic anemia. - Return patient to hospital [facility] for ongoing care. - Advance diet as tolerated today. - Continue present medications. - Thank you for allowing me to be involved in the care of your patient. Attending Participation: I personally performed the entire procedure without the assistance of a fellow, resident or surg ical diploma medical assistant. Chino Diaz MD Chino Diaz MD 05/20/2018 3:02:26 PM This report has been signed electronicallyDavigarcia Diaz MD Number of Addenda: 0 Note Initiated On: 05/20/2018 2:18 PM Total Procedure Duration Time 0 hours 14 minutes 15 seconds [email or web address]
[2018-05-20] MEDS: ENOXAPARIN 100 MG/ML SYR SC SCH (18:07)
[2018-05-20] MEDS: ATORVASTATIN CALCIUM 20 MG TAB PO SCH (20:06)
[2018-05-20] MEDS: RAMIPRIL 5 MG CAP PO SCH (20:06)
[2018-05-20] MEDS: FERRO-SEQUELS 65 MG TAB.ER PO SCH (20:06)
[2018-05-20] MEDS: METOPROLOL SUCCINATE XR 50 MG TAB PO SCH (20:06)
[2018-05-20] MEDS: ASPIRIN 81 MG CHEWABLE TAB PO SCH (20:06)
[2018-05-21] MEDS: ENOXAPARIN 100 MG/ML SYR SC SCH (06:57)
[2018-05-21] MEDS: FERRO-SEQUELS 65 MG TAB.ER PO SCH (09:05)
[2018-05-21] MEDS: GABAPENTIN 300 MG CAP PO SCH (09:05)
[2018-05-21] MEDS: PANTOPRAZOLE SODIUM 40 MG TAB PO SCH (09:05)
[2018-05-21] MEDS: TIOTROPIUM INHALER 18 MCG/DOSE 5 DOSE/MDI IH SCH (09:30)
--- NOTE | 2018-05-21 11:42 | ASMTDCNOTE ---
Case Management Discharge Discharge Order Complete? Answers: Yes Patient to Obtain Answers: Independently Medications Transportation Arranged Answers: Family/Friends EMTALA Complete Answers: No Case Management Transport Answers: No Form Complete Faxed Final Orders Answers: No Agency/Facility Transfer Answers: No Report Printed & Faxed to Receiving Agency Family Notified Answers: No Discharge Comments Notes: Pts case discussed in tx rounds. Pt is being d/c'd today. Pt has an outpatient appointment w/ Dr. Siu tomorrow. No other needs at this time. CM available for changes. Plan: Independent Date Signed: 05/21/2018 11:42 AM Electronically Signed By:MARIBEL Foreman
--- NOTE | 2018-05-21 11:43 | ASMTLACE ---
LACE Length of stay for Answers: 4-6 days current admission Acuity / Level of Answers: Yes Care: Did the patient have an inpatient admission? Comorbidities - select Answers: Chronic pulmonary disease all that apply Coronary Artery Disease Other Notes: Aortic aneurysm, htn # of Emergency department Answers: 0 visits in the last 6 months Score: 12 Date Signed: 05/21/2018 11:43 AM Electronically Signed By:MARIBEL Foreman
[2018-05-21 12:07] VITALS: BP 103/47
--- NOTE | 2018-05-21 14:44 | HOSPPROG ---
Hospitalist Progress Note Assessment/Plan: DIAGNOSES: * Acute on chronic iron deficiency anemia, symptomatic * Status post 1 unit red cell transfusion * Status post IV iron replacement and taking p.o. Now * Hemoglobin slowly improving, still fairly low * CAD with progressive angina: * Needs bypass surgery in near future, does not need to stay in hospital for this at present * Currently on aspirin and statin, off Plavix because of the iron deficiency anemia * Lung nodule in lingula, and Some LLL mucous plugging with atelectasis and a small L pleural effusion * Previously noted lung nodule in 2011 was 4 mm, now 7 mm * Seen by Dr. Ty Wheeler in consultation this admission recommending repeat CT scan in 3 months * COPD is noted on CT scan * Peripheral vascular disease: Had thrombotic occlusion of 1 of his bypass grafts last year prompting use of systemic anticoagulation which is now on hold. * AAA: 4.4cm on last check. * Metabolic syndrome: On metformin for this, not diabetic (A1c 5.2%). BG checks have all been normal, will discontinue regular checks. * H/o hepatitis C s/p treatment PLANS: * Colonoscopy and EGD yesterday with no significant findings * Continue iron therapy orally at this time * Continue off Plavix and anticoagulants per cardiology * Management of multivessel CAD per Cardiology, CT Surgery Subjective: Patient reports no complaints this AM Objective: Vital Signs Temp Pulse Resp BP Pulse Ox 36.4 C 69 14 103/47 L 93 05/21/18 12:00 05/21/18 12:00 05/21/18 12:00 05/21/18 12:00 05/21/18 12:00 Laboratory Results 05/20/18 04:14 05/16/18 07:18 05/20/18 05/21/18 05/22/18 05:59 05:59 05:59 Intake Total 5770 1810 Output Total 4750 1200 Balance 1020 610 PT 17.2 SEC (12.0-15.0) H 05/16/18 07:18 INR 1.39 (0.83-1.16) H 05/16/18 07:18 - Physical Exam Constitutional: no apparent distress Eyes: PERRL Ears, Nose, Mouth, Throat: moist mucous membranes Cardiovascular: regular rate and rhythym Respiratory: no respiratory distress Gastrointestinal: normoactive bowel sounds Skin: warm Neurologic: AAOx3 Psychiatric: interacting appropriately ICD10 Worksheet Patient Problems: Problems Problem Status Onset CAD (coronary artery disease) Acute Preoperative cardiovascular examination Acute
--- NOTE | 2018-05-21 15:40 | GDS ---
DISCHARGE DIAGNOSES: 1. History of coronary artery disease with progressive left anterior descending artery disease and known occlusion of the right coronary artery. 2. Anemia with 1 unit packed red blood cell transfusion in this admission. 3. Hemoptysis with an abnormal chest CT with presence of pulmonary nodules. 4. History of peripheral vascular disease with an abdominal aortic aneurysm at 4.4 cm and bilateral femoral-popliteal bypass grafting. 5. History of thrombotic occlusion of one of his bypass grafts, requiring super anticoagulation with aspirin, Plavix, and warfarin. 6. Pre-diabetes. 7. Hypertension. 8. Chronic obstructive pulmonary disease. CONSULTATIONS: 1. Dr. Lg Wheeler. 2. Dr. Chino Diaz. PROCEDURES: 1. 05/16/2018, left heart catheterization, which showed severe left anterior descending artery disease, with collaterals, 100% occluded RCA, unobstructed left main, unobstructed left circumflex, and an LVEF of 64%. 2. 05/16/2018, chest CT, which shows endobronchial thickening and occlusion of bilateral lower lobes, which may represent mucus plugging. There are some small pulmonary nodules present. 3. 05/18/2018, CTA of the aorta with runoff, which shows 4.4 cm infrarenal aneurysm and patent bilateral femoral-popliteal bypass graft with patent proximal SFA and 3-vessel runoff to feet bilaterally. 4. 05/19/2018, carotid Dopplers, which shows no evidence of flow limiting carotid bifurcation, internal carotid artery disease. There is a 50% to 60% stenosis in the proximal right external carotid artery. 5. 05/20/2018, upper GI endoscopy shows nonobstructing Schatzki ring and a medium-sized hiatal hernia. The stomach and duodenal bulb all appear normal. 6. 05/20/2018, colonoscopy, which shows diverticulosis in the sigmoid colon, decreased sphincter tone, 9 mm polyp in the rectum removed with a hot snare. BRIEF HISTORY: Please see dictated H and P for complete details. In brief, the patient is a 67-year-old male with a history of former tobacco abuse, CAD, with known RCA occlusion. He presented to clinic with a crescendo angina. He was taken to the cardiac catheterization laboratory and found to have an occluded LAD and known total occlusion of the RCA. He was also noted to be anemic with lab findings suggestive of iron-deficiency anemia. He was transfused. He proceeded to upper and lower endoscopy. 1. CAD. He has crescendo angina with progressive LAD disease. He is currently pain free and is being discharged to home with outpatient followup. His medical therapy includes beta stefania, DENISHA inhibitor, statin, and aspirin. His Plavix will be held. 2. Anemia. He has had a blood transfusion and IV iron infusions. He is being discharged on p.o. iron. No source of bleeding was found. 3. Abnormal chest CT with probable COPD, has been started on inhaler therapy. Prescriptions for these were given at time of discharge. He has several pulmonary nodules and will need a repeat CT in 3 months. 4. Peripheral vascular disease. He has a known abdominal aortic aneurysm of 4.4 cm. He had thrombotic occlusion of one of his bypass grafts to his lower extremities last year and had been on Plavix, aspirin, and warfarin. Due to his anemia, the Plavix and warfarin are now discontinued. His CTA shows patent bypass grafts at this time. 5. History of questionable diabetes. His metformin is now discontinued. 6. Dyslipidemia. His LDL is 47 on this admission. PHYSICAL EXAM: VITAL SIGNS: On day of discharge, blood pressure 103/47, heart rate 69, respirations 14, O2 saturation 93% on room air, temp of 97.6 degrees Fahrenheit. GENERAL: He is a very pleasant male in no apparent distress. HEENT: Head is normocephalic, atraumatic. Eyes are without scleral icterus. HEART: Regular rate and rhythm. LUNGS: Clear to auscultation. ABDOMEN: Soft , nontender, nondistended. Normoactive bowel sounds. LABORATORY DATA: H and H on 05/20/2018 are 8.6 and 29.6. BMP with sodium 140, potassium 4.9, chloride 107, CO2 22, BUN 12, creatinine 0.8, glucose 101, triglycerides 185, total cholesterol 105, LDL 47, HDL of 21. RESULTS PENDING: None. DIET: Cardiac diet recommended. DISCHARGE MEDICATIONS: Please see med reconciliation for complete details. He is being discharged on his home Neurontin, atorvastatin, aspirin, Altace, metoprolol succinate, Imodium. He has been given a new prescription for Spiriva , pantoprazole, ferrous sulfate, and albuterol. His warfarin and Plavix are now discontinued. DISCHARGE INSTRUCTIONS: 1. Groin precautions. 2. Follow up with Dr. Nicolas Shukla in 1-2 weeks' time. 3. Follow up CT of chest in 3 months' time. /[id number]/MODL MTDD
[2018-05-21] MEDS ORDERED: FERROUS SULFATE 325 MG TAB PO SCH (21:00)
== END 2018-05-21 14:20 | disposition home or self-care (01) | DRG 287 ==
LOC: FCATH 06:46 → F2W 09:26
PROVIDERS: ADMIT Internal Medicine Interventional Cardiology; ATTEND Internal Medicine Interventional Cardiology
PROC: B2111ZZ Fluoroscopy of Multiple Coronary Arteries using Low Osmolar Contrast (ICD-10-PCS; principal; 2018-05-16)
PROC: B2151ZZ Fluoroscopy of Left Heart using Low Osmolar Contrast (ICD-10-PCS; principal; 2018-05-16)
PROC: 4A023N7 Measurement of Cardiac Sampling and Pressure, Left Heart, Percutaneous Approach (ICD-10-PCS; principal; 2018-05-16)
PROC: 0DBN8ZX Excision of Sigmoid Colon, Via Natural or Artificial Opening Endoscopic, Diagnostic (ICD-10-PCS; 2018-05-20 13:00)
PROC: 0DBP8ZX Excision of Rectum, Via Natural or Artificial Opening Endoscopic, Diagnostic (ICD-10-PCS; 2018-05-20 13:00)
PROC: 0DB98ZX Excision of Duodenum, Via Natural or Artificial Opening Endoscopic, Diagnostic (ICD-10-PCS; 2018-05-20 13:00)
PROC: 30233N1 Transfusion of Nonautologous Red Blood Cells into Peripheral Vein, Percutaneous Approach (ICD-10-PCS; 2018-05-20 13:00)
PROC: 0W3P8ZZ Control Bleeding in Gastrointestinal Tract, Via Natural or Artificial Opening Endoscopic (ICD-10-PCS; 2018-05-20 13:00)
DX: I25.110 Atherosclerotic heart disease of native coronary artery with unstable angina pectoris (principal); I25.82 Chronic total occlusion of coronary artery; D50.0 Iron deficiency anemia secondary to blood loss (chronic); D62 Acute posthemorrhagic anemia; K57.30 Diverticulosis of large intestine without perforation or abscess without bleeding; K62.1 Rectal polyp; R04.2 Hemoptysis; I71.4 Abdominal aortic aneurysm, without rupture; R73.03 Prediabetes; J44.9 Chronic obstructive pulmonary disease, unspecified; E78.5 Hyperlipidemia, unspecified; I73.9 Peripheral vascular disease, unspecified; I10 Essential (primary) hypertension; Z95.5 Presence of coronary angioplasty implant and graft; Z85.46 Personal history of malignant neoplasm of prostate; Z86.19 Personal history of other infectious and parasitic diseases; Z87.891 Personal history of nicotine dependence
CPT/HCPCS: 82607-90; C1769; J1644; J1650; J2250; J2704; J2916; J3010; P9016; Q9967

== ENCOUNTER → 2018-06-05 | Outpatient (CLI) | payer OTHER, MEDICARE | LOC: BHFA 15:30 | PROVIDERS: ATTEND Internal Medicine Interventional Cardiology | DX: I25.10 Atherosclerotic heart disease of native coronary artery without angina pectoris (principal); I10 Essential (primary) hypertension; E78.5 Hyperlipidemia, unspecified; D64.9 Anemia, unspecified; Z95.5 Presence of coronary angioplasty implant and graft ==